=== PATIENT | male | born 1945 | race Caucasian/White ===

== ENCOUNTER 2016-09-26 09:19 | Inpatient (IN) | payer OTHER, MEDICAID ==
[~2016-09-26] VITALS: Ht 172.7 cm; Wt 106.7 kg
[~2016-09-26 09:19] MED LIST: ASPI-231 PO; ATOR20TA PO; IBU100LQ PO; KET10T PO; NITR0.4S29 SL; NITR400A5 SL; ZOLP10TA PO
[2016-09-26 10:23] LABS: Basophils # (auto) 0.1 uL; Basophils % (auto) 0.7 % (0.0-2.0); DEFINITIVE VIEW TRANSMISSION; Eosinophils # (auto) 0.7 uL; Eosinophils % (auto) 6.6 % (0.0-7.0); Hematocrit 44.5 % (41.0-53.0); Hemoglobin 14.8 g/dL (13.5-17.5); Lymphocytes # (auto) 1.8 uL; Lymphocytes % (auto) 15.8 % (10.0-50.0); Mean Corpuscular Hemoglobin 29.2 pg (28.0-32.0); Mean Corpuscular Hgb Conc. 33.2 g/dL (32.0-36.0); Mean Corpuscular Volume 87.9 fL (80.0-100.0); Mean Platelet Volume 7.7 fL (7.4-10.4); Monocytes # (auto) 0.8 uL; Monocytes % (auto) 6.8 % (0.0-12.0); Neutrophils # (auto) 7.9 uL; Neutrophils % (auto) 70.1 % (37.0-80.0); Platelet Count (auto) 327 10^3/uL (140-450); Red Cell Distribution Width 14.7 % (11.6-16.0); White Blood Cell 11.3 10^3/uL (4.4-10.8)
[2016-09-26 10:48] LABS: INR 1.02 (0.9-1.15); Partial Thromboplastin Time 25.9 sec (22.64-33.71)
[2016-09-26 10:53] LABS: Albumin 3.3 g/dL (3.4-5.0); Alkaline Phosphatase 116 U/L (45-117); Anion Gap 11 (5-15); Aspartate Aminotransferase 28 U/L (15-37); BUN/Creatinine Ratio 10.9; Bilirubin, Total 0.4 mg/dL (0.2-1.0); Blood Urea Nitrogen 11 mg/dL (7-18); Calcium 8.8 mg/dL (8.5-10.1); Carbon Dioxide 25 mmol/L (21-32); Chloride 107 mmol/L (98-107); GFR African American 93 mL/min; GFR Non-African American 77 mL/min; Glucose 135 mg/dL (74-106); Potassium 3.4 mmol/L (3.5-5.1); Sodium 143 mmol/L (136-145); Total Protein 7.5 g/dL (6.4-8.2)
[2016-09-26 10:59] LABS: Temperature: 24.3 C (20.0-25.0)
[2016-09-26] MEDS ORDERED: FUROSEMIDE 20 MG/2 ML VIAL IV ONE (13:15)
[2016-09-26] MEDS ORDERED: POTASSIUM CHL 20 Meq TABLET PO ONE (15:00)
[2016-09-26] MEDS ORDERED: IOHEXOL 350 MG/ML 100ML IJ ONE (16:09)
[2016-09-26] MEDS ORDERED: NITROGLYCERIN 0.4 MG SL TAB SL PRN (16:15)
[2016-09-26] MEDS ORDERED: MORPHINE SULF INJ 2 MG/ML SYRINGE 1ML IV PRN (16:15)
[2016-09-26 17:37] VITALS: BP 133/89
[2016-09-26] MEDS ORDERED: ALBUTEROL SULF 2.5 MG/0.5ML(0.5%) NEB SOLN NEB SCH (18:00)
[2016-09-26] MEDS ORDERED: guaiFENesin-DEXTROMETHORPHAN 5ML SYR PO SCH (18:00)
[2016-09-26 18:58] VITALS: BP 133/89
[2016-09-26] MEDS ORDERED: BUMETANIDE (0.25 MG/ML) INJ 10ML IV ONE (20:30)
[2016-09-26] MEDS ORDERED: IPRATROPIUM BROM 0.5 MG/2.5ML INH SOL NEB PRN (21:45)
[2016-09-26 21:56] VITALS: BP 150/81
[2016-09-26] MEDS: ZOLPIDEM TARTRATE 5 MG TAB PO PRN (22:14)
[2016-09-26] MEDS: CARVEDILOL 3.125 MG TAB PO SCH (22:14)
[2016-09-26 22:28] VITALS: BP 150/81
[2016-09-26] MEDS: guaiFENesin-DEXTROMETHORPHAN 5ML SYR PO PRN (23:36)
[2016-09-27] VITALS (7 sets, daily range): BP systolic 103–163; BP diastolic 67–103
[2016-09-27] MEDS ORDERED: methylPREDNISolone SOD SUCC 125 MG/2 ML VL ONE (01:26)
[2016-09-27] MEDS ORDERED: methylPREDNISolone SOD SUCC 125 MG/2 ML VL IV ONE (01:30)
[2016-09-27] MEDS ORDERED: IPRATROPIUM BROM 0.5 MG/2.5ML INH SOL NEB PRN (03:30)
[2016-09-27] MEDS ORDERED: methylPREDNISolone SOD SUCC 125 MG/2 ML VL IM ONE (03:30)
[2016-09-27] MEDS ORDERED: ALPRAZolam 0.5 MG TAB ONE (05:00)
[2016-09-27] MEDS ORDERED: ALBUTEROL SULF 2.5 MG/0.5ML(0.5%) NEB SOLN NEB PRN (05:00)
[2016-09-27] MEDS ORDERED: ALPRAZolam 0.5 MG TAB PO PRN (05:15)
[2016-09-27] MEDS: IPRATROPIUM BROM 0.5 MG/2.5ML INH SOL NEB SCH ×6 (05:58→22:00)
[2016-09-27] MEDS: ALBUTEROL SULF 2.5 MG/0.5ML(0.5%) NEB SOLN NEB SCH ×6 (05:59→22:00)
[2016-09-27] MEDS ORDERED: FUROSEMIDE 100 MG/10ML VIAL IV SCH (06:00)
[2016-09-27] MEDS: FUROSEMIDE 100 MG/10ML VIAL IV SCH ×2 (06:00→18:00)
[2016-09-27] MEDS ORDERED: traMADol HCL 50 MG TAB PO PRN (06:30)
[2016-09-27] MEDS ORDERED: FUROSEMIDE 20 MG/2 ML VIAL IV SCH (10:00)
[2016-09-27] MEDS: CARVEDILOL 3.125 MG TAB PO SCH ×2 (10:29→22:00)
[2016-09-27] MEDS: LEVOFLOXACIN 500MG 100 ML IV SCH (10:32)
[2016-09-27] MEDS: LISINOPRIL 5 MG TAB PO SCH (10:32)
[2016-09-27 13:59] LABS: Basophils # (auto) 0 uL; Basophils % (auto) 0.2 % (0.0-2.0); Eosinophils # (auto) 0 uL; Eosinophils % (auto) 0.3 % (0.0-7.0); Hematocrit 47.8 % (41.0-53.0); Hemoglobin 15.6 g/dL (13.5-17.5); Lymphocytes # (auto) 1.3 uL; Lymphocytes % (auto) 10.4 % (10.0-50.0); Mean Corpuscular Hemoglobin 29.1 pg (28.0-32.0); Mean Corpuscular Hgb Conc. 32.7 g/dL (32.0-36.0); Mean Corpuscular Volume 88.9 fL (80.0-100.0); Mean Platelet Volume 7.8 fL (7.4-10.4); Monocytes # (auto) 0.4 uL; Monocytes % (auto) 2.9 % (0.0-12.0); Neutrophils # (auto) 11.1 uL; Neutrophils % (auto) 86.2 % (37.0-80.0); Platelet Count (auto) 376 10^3/uL (140-450); Red Cell Distribution Width 14.6 % (11.6-16.0); White Blood Cell 12.8 10^3/uL (4.4-10.8)
[2016-09-27 14:17] LABS: Calcium 8.9 mg/dL (8.5-10.1); Magnesium 2.2 mg/dL (1.6-2.6); Potassium 3.8 mmol/L (3.5-5.1)
[2016-09-27] MEDS: methylPREDNISolone SOD SUCC 40 MG/ML VL IV SCH ×3 (14:37→22:00)
[2016-09-28] VITALS: BP 105/71
[2016-09-28] MEDS: IPRATROPIUM BROM 0.5 MG/2.5ML INH SOL NEB SCH ×6 (02:00→22:00)
[2016-09-28] MEDS: ALBUTEROL SULF 2.5 MG/0.5ML(0.5%) NEB SOLN NEB SCH ×6 (02:00→22:00)
[2016-09-28 03:57] VITALS: BP 113/75
[2016-09-28] MEDS: FUROSEMIDE 100 MG/10ML VIAL IV SCH ×2 (06:10→18:37)
[2016-09-28] MEDS: methylPREDNISolone SOD SUCC 40 MG/ML VL IV SCH ×3 (06:10→21:57)
[2016-09-28 06:25] LABS: Basophils # (auto) 0 uL; Basophils % (auto) 0.2 % (0.0-2.0); Eosinophils # (auto) 0 uL; Eosinophils % (auto) 0.1 % (0.0-7.0); Hematocrit 46.9 % (41.0-53.0); Hemoglobin 15.3 g/dL (13.5-17.5); Lymphocytes # (auto) 1.9 uL; Lymphocytes % (auto) 9.9 % (10.0-50.0); Mean Corpuscular Hemoglobin 28.9 pg (28.0-32.0); Mean Corpuscular Hgb Conc. 32.5 g/dL (32.0-36.0); Mean Corpuscular Volume 88.9 fL (80.0-100.0); Monocytes # (auto) 0.8 uL; Monocytes % (auto) 4.2 % (0.0-12.0); Neutrophils # (auto) 16.2 uL; Neutrophils % (auto) 85.6 % (37.0-80.0); Platelet Count (auto) 364 10^3/uL (140-450); Red Cell Distribution Width 14.7 % (11.6-16.0); White Blood Cell 18.9 10^3/uL (4.4-10.8)
[2016-09-28 06:47] LABS: BUN/Creatinine Ratio 25.6; Calcium 9.3 mg/dL (8.5-10.1); Magnesium 2.3 mg/dL (1.6-2.6); Potassium 3.7 mmol/L (3.5-5.1)
[2016-09-28 07:51] VITALS: BP 118/80
[2016-09-28] MEDS ORDERED: ADENOSINE 89 MG in GIVE UN-DILUTED 0 ML IV ONE (08:30)
[2016-09-28] MEDS: LEVOFLOXACIN 500MG 100 ML IV SCH (09:33)
[2016-09-28] MEDS: CARVEDILOL 3.125 MG TAB PO SCH ×2 (10:43→21:56)
[2016-09-28] MEDS: LISINOPRIL 5 MG TAB PO SCH (10:44)
[2016-09-28 12:00] VITALS: BP 113/57
[2016-09-28] MEDS: BUDESONIDE (INHALATION) 0.5 MG/2 ML NEB NEB SCH ×2 (13:53→19:01)
[2016-09-28] MEDS: HEPARIN SODIUM (PORCINE) 5000 UNITS/ML 1ML VIAL SC SCH ×2 (14:00→22:00)
[2016-09-28 16:00] VITALS: BP 103/65
[2016-09-28 19:54] VITALS: BP 124/71
[2016-09-28] MEDS: ZOLPIDEM TARTRATE 5 MG TAB PO PRN (21:56)
[2016-09-29] VITALS: BP 126/90
[2016-09-29 01:00] VITALS: BP 91/56
[2016-09-29] MEDS: ALBUTEROL SULF 2.5 MG/0.5ML(0.5%) NEB SOLN NEB SCH ×4 (01:58→14:06)
[2016-09-29] MEDS: IPRATROPIUM BROM 0.5 MG/2.5ML INH SOL NEB SCH ×4 (01:58→14:06)
[2016-09-29 05:00] VITALS: BP 108/64
[2016-09-29] MEDS: guaiFENesin-DEXTROMETHORPHAN 5ML SYR PO PRN (05:43)
[2016-09-29] MEDS: methylPREDNISolone SOD SUCC 40 MG/ML VL IV SCH ×2 (05:43→13:57)
[2016-09-29] MEDS: FUROSEMIDE 100 MG/10ML VIAL IV SCH (05:44)
[2016-09-29] MEDS: HEPARIN SODIUM (PORCINE) 5000 UNITS/ML 1ML VIAL SC SCH ×2 (05:51→14:00)
[2016-09-29 06:15] LABS: Basophils # (auto) 0 uL; Basophils % (auto) 0.2 % (0.0-2.0); Eosinophils # (auto) 0 uL; Eosinophils % (auto) 0.1 % (0.0-7.0); Hematocrit 46.1 % (41.0-53.0); Lymphocytes # (auto) 1.7 uL; Lymphocytes % (auto) 8.8 % (10.0-50.0); Mean Corpuscular Hemoglobin 29.1 pg (28.0-32.0); Mean Corpuscular Hgb Conc. 32.5 g/dL (32.0-36.0); Mean Corpuscular Volume 89.4 fL (80.0-100.0); Monocytes # (auto) 1.1 uL; Monocytes % (auto) 6.1 % (0.0-12.0); Neutrophils % (auto) 84.8 % (37.0-80.0); Platelet Count (auto) 369 10^3/uL (140-450); Red Cell Distribution Width 14.9 % (11.6-16.0); White Blood Cell 18.9 10^3/uL (4.4-10.8)
[2016-09-29 06:36] LABS: Potassium 4.2 mmol/L (3.5-5.1)
[2016-09-29 06:49] LABS: BUN/Creatinine Ratio 29.8
[2016-09-29 08:00] VITALS: BP 119/64
[2016-09-29] MEDS: LEVOFLOXACIN 500MG 100 ML IV SCH (09:38)
[2016-09-29] MEDS: CARVEDILOL 3.125 MG TAB PO SCH (09:38)
[2016-09-29] MEDS: LISINOPRIL 5 MG TAB PO SCH (09:38)
[2016-09-29] MEDS: BUDESONIDE (INHALATION) 0.5 MG/2 ML NEB NEB SCH (09:54)
[2016-09-29 11:35] VITALS: BP 119/64
[2016-09-29 12:00] VITALS: BP 103/68
== END 2016-09-29 14:45 | disposition home or self-care (01) | DRG 871 ==
LOC: ER 09:19 → TELE 09:20 → TELE-WESTW 17:46 → DOU IN ICU 09-27 15:38 → TELE-EAST 09-29 00:38
PROVIDERS: ADMIT Internal Medicine; ATTEND Internal Medicine
PROC: 5A09457 Assistance with Respiratory Ventilation, 24-96 Consecutive Hours, Continuous Positive Airway Pressure (ICD-10-PCS; principal; 2016-09-27)
DX: A41.9 Sepsis, unspecified organism (principal); I50.43 Acute on chronic combined systolic (congestive) and diastolic (congestive) heart failure; J18.9 Pneumonia, unspecified organism; J96.01 Acute respiratory failure with hypoxia; J44.1 Chronic obstructive pulmonary disease with (acute) exacerbation; J45.901 Unspecified asthma with (acute) exacerbation; J44.0 Chronic obstructive pulmonary disease with (acute) lower respiratory infection; J98.11 Atelectasis; I42.9 Cardiomyopathy, unspecified; I11.0 Hypertensive heart disease with heart failure; E78.5 Hyperlipidemia, unspecified; I25.10 Atherosclerotic heart disease of native coronary artery without angina pectoris; I25.2 Old myocardial infarction; K21.9 Gastro-esophageal reflux disease without esophagitis; E66.9 Obesity, unspecified; I70.0 Atherosclerosis of aorta; M15.9 Polyosteoarthritis, unspecified; G47.00 Insomnia, unspecified; N62 Hypertrophy of breast; E04.1 Nontoxic single thyroid nodule; I27.81 Cor pulmonale (chronic); I45.10 Unspecified right bundle-branch block; Z68.35 Body mass index [BMI] 35.0-35.9, adult; Z88.0 Allergy status to penicillin; Z82.49 Family history of ischemic heart disease and other diseases of the circulatory system; Z87.891 Personal history of nicotine dependence; Z91.14 Patient's other noncompliance with medication regimen; Z90.49 Acquired absence of other specified parts of digestive tract; Z79.899 Other long term (current) drug therapy; Z79.82 Long term (current) use of aspirin
CPT/HCPCS: 36415; 36600; 71010; 71275; 76536; 80048; 80053; 82805; 83735; 83880; 84439; 84443; 84480; 84484; 85025; 85379; 85610; 85730; 87081; 93005; 93306; 93970; 94640; 94660; 96374; J0153; J1956

== ENCOUNTER 2016-11-08 14:08 | Emergency (ER) | payer OTHER, MEDICAID ==
[~2016-11-08] VITALS: Ht 172.7 cm; Wt 108.4 kg
[2016-11-08] MEDS ORDERED: IPRATROPIUM BROM 0.5 MG/2.5ML INH SOL NEB ONE ×2 (14:30→16:15)
[2016-11-08] MEDS ORDERED: ALBUTEROL SULF 2.5 MG/0.5ML(0.5%) NEB SOLN NEB ONE ×2 (14:30→16:15)
[2016-11-08 14:51] LABS: Basophils # (auto) 0.1 uL; Basophils % (auto) 0.6 % (0.0-2.0); DEFINITIVE Y; Eosinophils # (auto) 0.7 uL; Eosinophils % (auto) 7.3 % (0.0-7.0); Hematocrit 43.9 % (41.0-53.0); Hemoglobin 14.9 g/dL (13.5-17.5); Lymphocytes % (auto) 19.6 % (10.0-50.0); Mean Corpuscular Hemoglobin 29.6 pg (28.0-32.0); Mean Corpuscular Hgb Conc. 33.9 g/dL (32.0-36.0); Mean Corpuscular Volume 87.2 fL (80.0-100.0); Mean Platelet Volume 7.5 fL (7.4-10.4); Monocytes # (auto) 0.8 uL; Monocytes % (auto) 8.1 % (0.0-12.0); Neutrophils # (auto) 6.5 uL; Neutrophils % (auto) 64.4 % (37.0-80.0); Platelet Count (auto) 359 10^3/uL (140-450); Red Cell Distribution Width 14.7 % (11.6-16.0); White Blood Cell 10.1 10^3/uL (4.4-10.8)
[2016-11-08 15:18] LABS: Albumin 3.5 g/dL (3.4-5.0); Alkaline Phosphatase 117 U/L (45-117); Anion Gap 6 (5-15); Aspartate Aminotransferase 21 U/L (15-37); BUN/Creatinine Ratio 8.7; Bilirubin, Total 0.5 mg/dL (0.2-1.0); Blood Urea Nitrogen 9 mg/dL (7-18); Calcium 9.1 mg/dL (8.5-10.1); Carbon Dioxide 30 mmol/L (21-32); Chloride 104 mmol/L (98-107); GFR African American 91 mL/min; GFR Non-African American 75 mL/min; Glucose 108 mg/dL (74-106); Magnesium 2.2 mg/dL (1.6-2.6); Sodium 140 mmol/L (136-145); Total Protein 7.5 g/dL (6.4-8.2)
[2016-11-08] MEDS ORDERED: LEVOFLOXACIN 500 MG TAB PO ONE (16:15)
[2016-11-08] MEDS ORDERED: predniSONE 20 MG TAB PO ONE (16:15)
[2016-11-08 16:40] VITALS: BP 132/92
== END 2016-11-08 17:05 | disposition home or self-care (01) ==
LOC: ER 14:08
DX: J44.1 Chronic obstructive pulmonary disease with (acute) exacerbation (principal); I25.2 Old myocardial infarction; I25.10 Atherosclerotic heart disease of native coronary artery without angina pectoris; I10 Essential (primary) hypertension; M54.9 Dorsalgia, unspecified; G89.29 Other chronic pain
CPT/HCPCS: 36415; 71020; 80053; 83735; 84484; 85025; 93005; 94640; 99285; J7512

== ENCOUNTER 2016-11-15 11:55 | Emergency (ER) | payer OTHER, MEDICAID ==
[~2016-11-15] VITALS: Ht 172.7 cm; Wt 107.0 kg
[2016-11-15 12:53] LABS: Basophils # (auto) 0.1 uL; Basophils % (auto) 0.6 % (0.0-2.0); CONDITION Y; Eosinophils # (auto) 0.4 uL; Eosinophils % (auto) 3.5 % (0.0-7.0); Hematocrit 42.4 % (41.0-53.0); Hemoglobin 14.3 g/dL (13.5-17.5); Lymphocytes # (auto) 3.1 uL; Lymphocytes % (auto) 25.2 % (10.0-50.0); Mean Corpuscular Hemoglobin 29.6 pg (28.0-32.0); Mean Corpuscular Hgb Conc. 33.8 g/dL (32.0-36.0); Mean Corpuscular Volume 87.6 fL (80.0-100.0); Mean Platelet Volume 7.8 fL (7.4-10.4); Monocytes # (auto) 0.7 uL; Neutrophils # (auto) 7.9 uL; Neutrophils % (auto) 64.7 % (37.0-80.0); Platelet Count (auto) 310 10^3/uL (140-450); Red Cell Distribution Width 14.4 % (11.6-16.0); White Blood Cell 12.3 10^3/uL (4.4-10.8)
[2016-11-15 13:18] LABS: Albumin 3.3 g/dL (3.4-5.0); Anion Gap 10 (5-15); Blood Urea Nitrogen 16 mg/dL (7-18); Calcium 8.5 mg/dL (8.5-10.1); Carbon Dioxide 27 mmol/L (21-32); Chloride 108 mmol/L (98-107); Glucose 122 mg/dL (74-106); Potassium 3.1 mmol/L (3.5-5.1); Sodium 145 mmol/L (136-145)
[2016-11-15 13:21] LABS: Aspartate Aminotransferase 16 U/L (15-37); BUN/Creatinine Ratio 15.8; GFR African American 93 mL/min; GFR Non-African American 77 mL/min
[2016-11-15 13:25] LABS: Alkaline Phosphatase 110 U/L (45-117); Bilirubin, Total 0.6 mg/dL (0.2-1.0); Total Protein 7.1 g/dL (6.4-8.2)
[2016-11-15] MEDS ORDERED: ALBUTEROL SULF 2.5 MG/0.5ML(0.5%) NEB SOLN NEB ONE (19:00)
[2016-11-15] MEDS ORDERED: IPRATROPIUM BROM 0.5 MG/2.5ML INH SOL NEB ONE (19:00)
[2016-11-15] MEDS ORDERED: methylPREDNISolone SOD SUCC 125 MG/2 ML VL IV ONE (19:00)
[2016-11-15 20:13] LABS: B-Type Natriuretic Peptide 18.65 pg/mL (0-100)
[2016-11-15 20:57] LABS: Temperature: 23.1 C (20.0-25.0)
[2016-11-16 01:13] VITALS: BP 151/80
== END 2016-11-16 01:23 | disposition home or self-care (01) ==
LOC: ER 11:55
DX: J44.1 Chronic obstructive pulmonary disease with (acute) exacerbation (principal); I25.10 Atherosclerotic heart disease of native coronary artery without angina pectoris; E78.5 Hyperlipidemia, unspecified; I10 Essential (primary) hypertension; I25.2 Old myocardial infarction
CPT/HCPCS: 36415; 71020; 80053; 83735; 83880; 84484; 85025; 93005; 94640; 96374; 99285; J2930

== ENCOUNTER 2016-11-22 14:06 | Emergency (ER) | payer OTHER, MEDICAID ==
[~2016-11-22] VITALS: Ht 172.7 cm; Wt 112.0 kg
[2016-11-22 14:14] VITALS: BP 132/80
[2016-11-22 14:44] LABS: Basophils # (auto) 0 uL; Basophils % (auto) 0.4 % (0.0-2.0); CONDITION Y; Eosinophils # (auto) 0.5 uL; Eosinophils % (auto) 5.1 % (0.0-7.0); Hematocrit 42.2 % (41.0-53.0); Hemoglobin 14.3 g/dL (13.5-17.5); Lymphocytes # (auto) 2.5 uL; Lymphocytes % (auto) 23.2 % (10.0-50.0); Mean Corpuscular Hemoglobin 29.6 pg (28.0-32.0); Mean Corpuscular Hgb Conc. 33.8 g/dL (32.0-36.0); Mean Corpuscular Volume 87.5 fL (80.0-100.0); Mean Platelet Volume 7.9 fL (7.4-10.4); Monocytes # (auto) 0.6 uL; Monocytes % (auto) 5.9 % (0.0-12.0); Neutrophils % (auto) 65.4 % (37.0-80.0); Platelet Count (auto) 291 10^3/uL (140-450); Red Cell Distribution Width 14.1 % (11.6-16.0); White Blood Cell 10.7 10^3/uL (4.4-10.8)
[2016-11-22 15:04] LABS: Albumin 3.2 g/dL (3.4-5.0); BUN/Creatinine Ratio 10.6; Bilirubin, Total 0.6 mg/dL (0.2-1.0); Potassium 3.2 mmol/L (3.5-5.1); Total Protein 6.7 g/dL (6.4-8.2)
[2016-11-22 20:29] LABS: B-Type Natriuretic Peptide 22.86 pg/mL (0-100)
[2016-11-22 20:39] LABS: Temperature: 22.4 C (20.0-25.0)
== END 2016-11-22 22:30 | disposition left against medical advice (07) ==
LOC: ER 14:06
DX: R07.9 Chest pain, unspecified (principal); R06.02 Shortness of breath; Z53.21 Procedure and treatment not carried out due to patient leaving prior to being seen by health care provider
CPT/HCPCS: 36415; 71020; 80053; 83880; 84484; 85025; 93005

== ENCOUNTER 2016-11-29 06:39 | Emergency (ER) | payer OTHER, MEDICAID ==
[~2016-11-29] VITALS: Ht 172.7 cm; Wt 112.0 kg
[2016-11-29 07:24] LABS: CONDITION Y; DEFINITIVE SEE PRINTOUT; Hematocrit 42.1 % (41.0-53.0); Hemoglobin 14.3 g/dL (13.5-17.5); Mean Corpuscular Hemoglobin 29.6 pg (28.0-32.0); Mean Corpuscular Hgb Conc. 33.9 g/dL (32.0-36.0); Mean Corpuscular Volume 87.3 fL (80.0-100.0); Mean Platelet Volume 7.5 fL (7.4-10.4); Platelet Count (auto) 284 10^3/uL (140-450); Red Cell Distribution Width 14.9 % (11.6-16.0); White Blood Cell 9.5 10^3/uL (4.4-10.8)
[2016-11-29 07:34] LABS: Metamyelocytes % 0; Myelocytes % 0; Promyelocytes % 0; Reactive Lymphocytes 0
[2016-11-29 07:42] LABS: INR 1.01 (0.9-1.15)
[2016-11-29 07:49] LABS: Albumin 3.4 g/dL (3.4-5.0); BUN/Creatinine Ratio 10.4; Bilirubin, Total 0.5 mg/dL (0.2-1.0); Calcium 8.7 mg/dL (8.5-10.1); Magnesium 2.1 mg/dL (1.6-2.6); Potassium 4.1 mmol/L (3.5-5.1); Total Protein 6.9 g/dL (6.4-8.2)
[2016-11-29 07:54] LABS: Platelet Estimate Adequate
[2016-11-29 07:55] LABS: Ovalocytes FEW
[2016-11-29] MEDS ORDERED: ASPirin 81 mg TAB PO ONE (10:15)
[2016-11-29] MEDS ORDERED: ONDANSETRON HCL 4 MG/2 ML VIAL IV ONE (10:15)
[2016-11-29] MEDS ORDERED: MORPHINE SULFATE 4 MG/ML SYRG IV ONE (10:15)
[2016-11-29] MEDS ORDERED: ALBUTEROL SULF 2.5 MG/0.5ML(0.5%) NEB SOLN NEB ONE (10:15)
[2016-11-29] MEDS ORDERED: IPRATROPIUM BROM 0.5 MG/2.5ML INH SOL NEB ONE (10:15)
[2016-11-29 12:46] VITALS: BP 119/78
== END 2016-11-29 14:06 | disposition home or self-care (01) ==
LOC: ER 06:39
DX: R07.89 Other chest pain (principal); J44.1 Chronic obstructive pulmonary disease with (acute) exacerbation; I10 Essential (primary) hypertension; E78.5 Hyperlipidemia, unspecified; I25.2 Old myocardial infarction; I25.10 Atherosclerotic heart disease of native coronary artery without angina pectoris; Z88.0 Allergy status to penicillin
CPT/HCPCS: 36415; 71020; 80053; 83735; 84484; 85007; 85027; 85610; 85730; 93005; 94640; 96374; 96375; 99291; J2270; J2405

== ENCOUNTER 2017-02-12 11:51 | Emergency (ER) | payer OTHER, MEDICAID ==
[~2017-02-12] VITALS: Ht 172.7 cm; Wt 108.9 kg
[2017-02-12 12:08] VITALS: BP 134/82
[2017-02-12 12:38] LABS: Urine Bilirubin Negative (Negative); Urine Blood TRACE /uL (Negative); Urine Color Colorless (Yellow); Urine Glucose Normal (Normal); Urine Ketone Negative (Negative); Urine Nitrite Negative (Negative); Urine RBC <1 /hpf (0 - 3); Urine Urobilinogen Normal (Negative); Urine pH 6.5 (5.0-8.0)
[2017-02-12 12:55] LABS: Basophils # (auto) 0 uL; Basophils % (auto) 0.4 % (0.0-2.0); CONDITION Y; Eosinophils # (auto) 0.4 uL; Eosinophils % (auto) 5.6 % (0.0-7.0); Hematocrit 41.2 % (41.0-53.0); Hemoglobin 14.1 g/dL (13.5-17.5); Lymphocytes # (auto) 2.2 uL; Lymphocytes % (auto) 28.1 % (10.0-50.0); Mean Corpuscular Hemoglobin 29.5 pg (28.0-32.0); Mean Corpuscular Hgb Conc. 34.3 g/dL (32.0-36.0); Mean Corpuscular Volume 86.1 fL (80.0-100.0); Mean Platelet Volume 7.4 fL (6.9-10.8); Monocytes # (auto) 0.7 uL; Monocytes % (auto) 8.7 % (0.0-12.0); Neutrophils # (auto) 4.5 uL; Neutrophils % (auto) 57.2 % (37.0-80.0); Platelet Count (auto) 339 10^3/uL (140-450); Red Cell Distribution Width 14.6 % (11.8-14.3); White Blood Cell 7.9 10^3/uL (4.4-10.8)
[2017-02-12 13:18] LABS: Albumin 3.5 g/dL (3.4-5.0); Anion Gap 9 (5-15); Aspartate Aminotransferase 16 U/L (15-37); BUN/Creatinine Ratio 14.3; Blood Urea Nitrogen 12 mg/dL (7-18); Calcium 8.5 mg/dL (8.5-10.1); Carbon Dioxide 24 mmol/L (21-32); Chloride 109 mmol/L (98-107); GFR African American 115 mL/min; GFR Non-African American 95 mL/min; Glucose 112 mg/dL (74-106); Magnesium 2.3 mg/dL (1.6-2.6); Potassium 3.4 mmol/L (3.5-5.1); Sodium 142 mmol/L (136-145)
[2017-02-12 13:23] LABS: Alkaline Phosphatase 100 U/L (45-117); Bilirubin, Total 0.4 mg/dL (0.2-1.0); Total Protein 7.1 g/dL (6.4-8.2)
== END 2017-02-12 14:25 | disposition left against medical advice (07) ==
LOC: ER 11:51
DX: R06.02 Shortness of breath (principal); R42 Dizziness and giddiness; Z53.21 Procedure and treatment not carried out due to patient leaving prior to being seen by health care provider
CPT/HCPCS: 36415; 71020; 80053; 81001; 83735; 84484; 85025; 93005

== ENCOUNTER 2017-04-18 00:15 | Emergency (ER) | payer OTHER, MEDICAID ==
[~2017-04-18] VITALS: Ht 172.7 cm; Wt 106.6 kg
[2017-04-18 00:58] LABS: Basophils # (auto) 0.2 uL; Basophils % (auto) 2.7 % (0.0-2.0); Eosinophils # (auto) 0.4 uL; Eosinophils % (auto) 4.4 % (0.0-7.0); Hematocrit 42.1 % (41.0-53.0); Lymphocytes # (auto) 2.4 uL; Lymphocytes % (auto) 27.7 % (10.0-50.0); Mean Corpuscular Hgb Conc. 33.3 g/dL (32.0-36.0); Mean Corpuscular Volume 87.1 fL (80.0-100.0); Mean Platelet Volume 7.4 fL (6.9-10.8); Monocytes # (auto) 0.8 uL; Monocytes % (auto) 9.2 % (0.0-12.0); Neutrophils # (auto) 4.9 uL; Nucleated Red Blood Cells % 0.1 %; Platelet Count (auto) 307 10^3/uL (140-450); Red Cell Distribution Width 14.4 % (11.8-14.3); White Blood Cell 8.8 10^3/uL (4.4-10.8)
[2017-04-18 01:17] LABS: Albumin 3.3 g/dL (3.4-5.0); BUN/Creatinine Ratio 14.9; Calcium 8.8 mg/dL (8.5-10.1); Magnesium 2.1 mg/dL (1.6-2.6)
[2017-04-18 01:22] LABS: Bilirubin, Total 0.4 mg/dL (0.2-1.0); Total Protein 7.5 g/dL (6.4-8.2)
[2017-04-18 01:46] LABS: Temperature: 22.1 C (20.0-25.0)
[2017-04-18] MEDS ORDERED: IOHEXOL 300 MG/ML 100ML BOTTLE IJ ONE (09:58)
[2017-04-18] MEDS ORDERED: ALPRAZolam 0.5 MG TAB PO ONE (11:30)
[2017-04-18] MEDS ORDERED: ALPRAZolam 0.25 MG TAB PO SCH (12:00)
[2017-04-18] MEDS ORDERED: MORPHINE SULF INJ 2 MG/ML SYRINGE 1ML IV PRN (12:00)
[2017-04-18 14:20] VITALS: BP 125/78
== END 2017-04-18 14:37 | disposition short-term general hospital (02) ==
LOC: ER 00:20
DX: J44.1 Chronic obstructive pulmonary disease with (acute) exacerbation (principal); C64.2 Malignant neoplasm of left kidney, except renal pelvis; I25.2 Old myocardial infarction; I11.0 Hypertensive heart disease with heart failure; I50.9 Heart failure, unspecified; I25.10 Atherosclerotic heart disease of native coronary artery without angina pectoris; E78.00 Pure hypercholesterolemia, unspecified; Z90.49 Acquired absence of other specified parts of digestive tract; Z99.81 Dependence on supplemental oxygen
CPT/HCPCS: 36415; 71010; 74176; 74177; 80053; 83690; 83735; 83880; 84484; 85025; 93005; 94761; 99285; Q9967

== ENCOUNTER 2017-05-02 15:40 | Observation (INO) | payer MEDICAID, OTHER ==
[~2017-05-02] VITALS: Ht 172.7 cm; Wt 106.6 kg
[2017-05-02 17:02] LABS: Basophils # (auto) 0.1 uL; Basophils % (auto) 0.7 % (0.0-2.0); Eosinophils # (auto) 0.5 uL; Eosinophils % (auto) 5.5 % (0.0-7.0); Hematocrit 43.5 % (41.0-53.0); Hemoglobin 14.7 g/dL (13.5-17.5); Lymphocytes % (auto) 22.4 % (10.0-50.0); Mean Corpuscular Hemoglobin 29.5 pg (28.0-32.0); Mean Corpuscular Hgb Conc. 33.7 g/dL (32.0-36.0); Mean Corpuscular Volume 87.5 fL (80.0-100.0); Mean Platelet Volume 7.6 fL (6.9-10.8); Monocytes # (auto) 0.9 uL; Monocytes % (auto) 9.9 % (0.0-12.0); Neutrophils # (auto) 5.5 uL; Neutrophils % (auto) 61.5 % (37.0-80.0); Platelet Count (auto) 304 10^3/uL (140-450); Red Cell Distribution Width 14.7 % (11.8-14.3)
[2017-05-02 17:03] LABS: Albumin 3.4 g/dL (3.4-5.0); Alkaline Phosphatase 123 U/L (45-117); Anion Gap 7 (5-15); Aspartate Aminotransferase 16 U/L (15-37); BUN/Creatinine Ratio 15.9; Bilirubin, Total 0.3 mg/dL (0.2-1.0); Blood Urea Nitrogen 14 mg/dL (7-18); Calcium 8.7 mg/dL (8.5-10.1); Carbon Dioxide 26 mmol/L (21-32); Chloride 106 mmol/L (98-107); GFR African American 109 mL/min; GFR Non-African American 90 mL/min; Glucose 130 mg/dL (74-106); Magnesium 2.2 mg/dL (1.6-2.6); Potassium 3.8 mmol/L (3.5-5.1); Sodium 139 mmol/L (136-145); Total Protein 7.8 g/dL (6.4-8.2)
[2017-05-02 18:27] LABS: INR 1.05 (0.9-1.15); Prothrombin Time 11.4 sec (9.37-12.3)
[2017-05-02 18:42] LABS: B-Type Natriuretic Peptide 12.1 pg/mL (0-100)
[2017-05-02] MEDS ORDERED: IOHEXOL 350 MG/ML 100ML IJ ONE (19:21)
[2017-05-02] MEDS ORDERED: cefTRIAXone 1GM/10ml IVPUSH 10 ML IV ONE (20:15)
[2017-05-02 23:01] VITALS: BP 99/62
== END 2017-05-03 00:25 | disposition home or self-care (01) | DRG 313 ==
LOC: EDBD 15:40 → ER 15:46 → OVERFLOW 17:43 → ER 05-03 00:25
PROVIDERS: ADMIT Family Medicine; ATTEND Family Medicine
DX: R07.2 Precordial pain (principal); I25.110 Atherosclerotic heart disease of native coronary artery with unstable angina pectoris; I11.0 Hypertensive heart disease with heart failure; I50.9 Heart failure, unspecified; J84.89 Other specified interstitial pulmonary diseases; E78.5 Hyperlipidemia, unspecified; R79.1 Abnormal coagulation profile; Z82.49 Family history of ischemic heart disease and other diseases of the circulatory system
CPT/HCPCS: 36415; 71010; 71275; 80053; 83735; 83880; 84443; 84484; 85025; 85379; 85610; 85730; 96374; 99285; G0378; Q9967

== ENCOUNTER 2017-08-15 14:33 | Emergency (ER) | payer OTHER ==
[~2017-08-15] VITALS: Ht 172.7 cm; Wt 110.7 kg
[~2017-08-15 14:33] MED LIST changes: -IBU100LQ PO; +IBUP100S11 PO
[2017-08-15 14:39] VITALS: BP 139/77
[2017-08-15 14:54] LABS: Urine WBC None Seen /hpf (0 - 3)
[2017-08-15 15:07] LABS: Basophils # (auto) 0.1 uL; Basophils % (auto) 0.7 % (0.0-2.0); Eosinophils # (auto) 0.5 uL; Eosinophils % (auto) 5.7 % (0.0-7.0); Hematocrit 42.9 % (41.0-53.0); Hemoglobin 14.3 g/dL (13.5-17.5); Lymphocytes # (auto) 2.1 uL; Lymphocytes % (auto) 22.5 % (10.0-50.0); Mean Corpuscular Hemoglobin 29.5 pg (28.0-32.0); Mean Corpuscular Hgb Conc. 33.4 g/dL (32.0-36.0); Mean Corpuscular Volume 88.4 fL (80.0-100.0); Monocytes # (auto) 0.7 uL; Monocytes % (auto) 7.3 % (0.0-12.0); Neutrophils # (auto) 5.8 uL; Neutrophils % (auto) 63.8 % (37.0-80.0); Nucleated Red Blood Cells % 0.5 %; Platelet Count (auto) 289 10^3/uL (140-450); Red Blood Cells 4.85 10^6/uL (4.5-5.90); Red Cell Distribution Width 14.9 % (11.8-14.3); White Blood Cell 9.1 10^3/uL (4.4-10.8)
[2017-08-15 15:21] LABS: Urine Bacteria FEW /hpf (None Seen); Urine Blood Negative /uL (Negative); Urine Specific Gravity 1.001 (1.001-1.035)
[2017-08-15 15:29] LABS: Alanine Aminotransferase 22 U/L (16-61); Albumin 3.5 g/dL (3.4-5.0); Alkaline Phosphatase 125 U/L (45-117); Anion Gap 10 (5-15); Aspartate Aminotransferase 17 U/L (15-37); BUN/Creatinine Ratio 12.6; Bilirubin, Total 0.5 mg/dL (0.2-1.0); Blood Urea Nitrogen 11 mg/dL (7-18); Calcium 8.3 mg/dL (8.5-10.1); Carbon Dioxide 23 mmol/L (21-32); Chloride 104 mmol/L (98-107); GFR African American 110 mL/min; GFR Non-African American 91 mL/min; Glucose 131 mg/dL (74-106); Magnesium 2.3 mg/dL (1.6-2.6); Potassium 3.8 mmol/L (3.5-5.1); Sodium 137 mmol/L (136-145); Total Protein 7.6 g/dL (6.4-8.2)
== END 2017-08-15 19:49 | disposition left against medical advice (07) ==
LOC: ER 14:33
DX: R07.9 Chest pain, unspecified (principal); Z53.21 Procedure and treatment not carried out due to patient leaving prior to being seen by health care provider
CPT/HCPCS: 36415; 71046; 80053; 81001; 83735; 84484; 85025; 93005

== ENCOUNTER 2017-11-17 09:20 | Emergency (ER) | payer OTHER ==
[~2017-11-17] VITALS: Ht 172.7 cm; Wt 108.9 kg
[2017-11-17 10:18] LABS: Basophils # (auto) 0.1 uL; Eosinophils # (auto) 0.5 uL; Eosinophils % (auto) 5.1 % (0.0-7.0); Hematocrit 45.5 % (41.0-53.0); Hemoglobin 15.5 g/dL (13.5-17.5); Lymphocytes # (auto) 2.4 uL; Lymphocytes % (auto) 24.9 % (10.0-50.0); Mean Corpuscular Hemoglobin 30.3 pg (28.0-32.0); Mean Corpuscular Hgb Conc. 34.2 g/dL (32.0-36.0); Mean Corpuscular Volume 88.7 fL (80.0-100.0); Monocytes # (auto) 0.8 uL; Monocytes % (auto) 8.4 % (0.0-12.0); Neutrophils # (auto) 5.8 uL; Neutrophils % (auto) 60.6 % (37.0-80.0); Nucleated Red Blood Cells % 0.1 %; Platelet Count (auto) 276 10^3/uL (140-450); Red Blood Cells 5.12 10^6/uL (4.5-5.90); Red Cell Distribution Width 14.8 % (11.8-14.3); White Blood Cell 9.7 10^3/uL (4.4-10.8)
[2017-11-17 10:32] LABS: Alanine Aminotransferase 37 U/L (16-61); Albumin 3.5 g/dL (3.4-5.0); Alkaline Phosphatase 117 U/L (45-117); Anion Gap 9 (5-15); Aspartate Aminotransferase 20 U/L (15-37); BUN/Creatinine Ratio 11.2; Bilirubin, Total 0.6 mg/dL (0.2-1.0); Blood Urea Nitrogen 10 mg/dL (7-18); Calcium 8.3 mg/dL (8.5-10.1); Carbon Dioxide 22 mmol/L (21-32); Chloride 107 mmol/L (98-107); GFR African American 107 mL/min; GFR Non-African American 89 mL/min; Glucose 151 mg/dL (74-106); Potassium 3.7 mmol/L (3.5-5.1); Sodium 138 mmol/L (136-145); Total Protein 7.4 g/dL (6.4-8.2)
[2017-11-17 10:34] LABS: INR 0.98 (0.9-1.15); Partial Thromboplastin Time 27.4 sec (23.78-33.04); Prothrombin Time 10.5 sec (9.27-12.13)
[2017-11-17] MEDS ORDERED: IPRATROPIUM BROM 0.5 MG/2.5ML INH SOL NEB ONE (11:45)
[2017-11-17] MEDS ORDERED: ALBUTEROL SULF 2.5 MG/0.5ML(0.5%) NEB SOLN NEB ONE (11:45)
[2017-11-17] MEDS ORDERED: IOHEXOL 350 MG/ML 100ML IJ ONE (12:43)
[2017-11-17 13:35] VITALS: BP 110/87
== END 2017-11-17 15:40 | disposition home or self-care (01) ==
LOC: ER 09:20
DX: J44.1 Chronic obstructive pulmonary disease with (acute) exacerbation (principal); E04.9 Nontoxic goiter, unspecified; I25.2 Old myocardial infarction; J84.10 Pulmonary fibrosis, unspecified; I11.0 Hypertensive heart disease with heart failure; I50.9 Heart failure, unspecified; E78.5 Hyperlipidemia, unspecified; Z90.89 Acquired absence of other organs; Z90.49 Acquired absence of other specified parts of digestive tract; Z85.528 Personal history of other malignant neoplasm of kidney
CPT/HCPCS: 36415; 71046; 71275; 80053; 84443; 84484; 85025; 85379; 85610; 85730; 93005; 94761; 99285; J7030; Q9967

== ENCOUNTER 2018-03-17 12:17 | Emergency (ER) | payer OTHER ==
[~2018-03-17] VITALS: Ht 172.7 cm; Wt 107.5 kg
[2018-03-17] MEDS ORDERED: ALBUTEROL SULF 2.5 MG/0.5ML(0.5%) NEB SOLN NEB ONE (13:15)
[2018-03-17] MEDS ORDERED: methylPREDNISolone SOD SUCC 125 MG/2 ML VL IM ONE (13:15)
[2018-03-17] MEDS ORDERED: IPRATROPIUM BROM 0.5 MG/2.5ML INH SOL NEB ONE (13:15)
[2018-03-17 14:01] LABS: Basophils # (auto) 0 uL; Basophils % (auto) 0.4 % (0.0-2.0); Hemoglobin 12.9 g/dL (13.5-17.5); Monocytes # (auto) 0.7 uL; Platelet Count (auto) 364 10^3/uL (140-450)
[2018-03-17 14:04] LABS: Eosinophils # (auto) 0.6 uL; Eosinophils % (auto) 5.9 % (0.0-7.0); Hematocrit 39.1 % (41.0-53.0); Lymphocytes # (auto) 1.7 uL; Mean Corpuscular Hemoglobin 26.9 pg (28.0-32.0); Mean Corpuscular Hgb Conc. 32.9 g/dL (32.0-36.0); Mean Corpuscular Volume 81.6 fL (80.0-100.0); Monocytes % (auto) 6.9 % (0.0-12.0); Neutrophils # (auto) 6.6 uL; Neutrophils % (auto) 68.8 % (37.0-80.0); Red Blood Cells 4.79 10^6/uL (4.5-5.90); White Blood Cell 9.6 10^3/uL (4.4-10.8)
[2018-03-17 14:18] LABS: Albumin 3.5 g/dL (3.4-5.0); Anion Gap 10 (5-15); Blood Urea Nitrogen 14 mg/dL (7-18); Calcium 8.1 mg/dL (8.5-10.1); Carbon Dioxide 19 mmol/L (21-32); Chloride 105 mmol/L (98-107); Glucose 165 mg/dL (74-106); Potassium 4.1 mmol/L (3.5-5.1); Sodium 134 mmol/L (136-145)
[2018-03-17 14:23] LABS: Alanine Aminotransferase 26 U/L (16-61); Alkaline Phosphatase 136 U/L (45-117); Aspartate Aminotransferase 14 U/L (15-37); BUN/Creatinine Ratio 11.6; Bilirubin, Total 0.3 mg/dL (0.2-1.0); GFR African American 75 mL/min; GFR Non-African American 62 mL/min; Total Protein 7.7 g/dL (6.4-8.2)
[2018-03-17 16:17] VITALS: BP 141/86
[2018-03-17 16:39] LABS: Urine Bacteria FEW /hpf (None Seen); Urine Blood TRACE /uL (Negative); Urine Mucus FEW (None Seen); Urine WBC 2 /hpf (0 - 3)
== END 2018-03-17 17:08 | disposition home or self-care (01) ==
LOC: ER 12:17
DX: J44.1 Chronic obstructive pulmonary disease with (acute) exacerbation (principal); I25.119 Atherosclerotic heart disease of native coronary artery with unspecified angina pectoris; E78.5 Hyperlipidemia, unspecified; I25.2 Old myocardial infarction; I11.0 Hypertensive heart disease with heart failure; I50.9 Heart failure, unspecified; Z90.49 Acquired absence of other specified parts of digestive tract; Z87.891 Personal history of nicotine dependence
CPT/HCPCS: 36415; 71045; 80053; 81001; 83880; 84484; 85025; 93005; 94640; 96372; 99285; J2930; J7611; J7644

== ENCOUNTER 2018-05-13 19:07 | Emergency (ER) | payer OTHER ==
[~2018-05-13] VITALS: Ht 172.7 cm; Wt 106.1 kg
[2018-05-13 19:20] VITALS: BP 158/91
[2018-05-13 20:01] LABS: Basophils # (auto) 0.1 uL; Basophils % (auto) 0.7 % (0.0-2.0); Eosinophils # (auto) 0.4 uL; Monocytes # (auto) 0.8 uL
[2018-05-13 20:02] LABS: Eosinophils % (auto) 4.6 % (0.0-7.0); Hematocrit 41.8 % (41.0-53.0); Hemoglobin 13.8 g/dL (13.5-17.5); Lymphocytes # (auto) 1.8 uL; Lymphocytes % (auto) 21.2 % (10.0-50.0); Mean Corpuscular Hemoglobin 26.3 pg (28.0-32.0); Mean Corpuscular Volume 79.6 fL (80.0-100.0); Monocytes % (auto) 9.7 % (0.0-12.0); Neutrophils # (auto) 5.5 uL; Neutrophils % (auto) 63.8 % (37.0-80.0); Platelet Count (auto) 305 10^3/uL (140-450); Red Blood Cells 5.25 10^6/uL (4.5-5.90); Red Cell Distribution Width 17.2 % (11.8-14.3); White Blood Cell 8.5 10^3/uL (4.4-10.8)
[2018-05-13 20:14] LABS: Albumin 3.5 g/dL (3.4-5.0); Calcium 8.2 mg/dL (8.5-10.1); Potassium 4.3 mmol/L (3.5-5.1)
[2018-05-13 20:18] LABS: BUN/Creatinine Ratio 11.2; Bilirubin, Total 0.3 mg/dL (0.2-1.0); Total Protein 7.6 g/dL (6.4-8.2)
== END 2018-05-13 22:23 | disposition left against medical advice (07) ==
LOC: ER 19:07
DX: R06.02 Shortness of breath (principal); Z53.21 Procedure and treatment not carried out due to patient leaving prior to being seen by health care provider
CPT/HCPCS: 36415; 71046; 80053; 85025; 93005

== ENCOUNTER 2018-06-01 20:00 | Emergency (ER) | payer OTHER ==
[~2018-06-01] VITALS: Ht 172.7 cm; Wt 106.6 kg
[2018-06-01 20:10] VITALS: BP 134/81
[2018-06-01] MEDS ORDERED: IPRATROPIUM BROM 0.5 MG/2.5ML INH SOL NEB ONE (20:45)
[2018-06-01] MEDS ORDERED: ALBUTEROL SULF 2.5 MG/0.5ML(0.5%) NEB SOLN NEB ONE (20:45)
[2018-06-01] MEDS ORDERED: cefTRIAXone 1GM/50ML D5W 50 ML IV ONE (20:45)
[2018-06-01] MEDS ORDERED: methylPREDNISolone SOD SUCC 125 MG/2 ML VL IV ONE (20:45)
[2018-06-01 21:16] LABS: Urine Bacteria NONE SEEN /hpf (None Seen); Urine Blood 1+ /uL (Negative); Urine Specific Gravity 1.017 (1.001-1.035); Urine WBC 1 /hpf (0 - 3)
[2018-06-01 21:21] LABS: Eosinophils # (auto) 0.6 uL; Eosinophils % (auto) 4.8 % (0.0-7.0)
[2018-06-01 21:23] LABS: Basophils # (auto) 0 uL; Basophils % (auto) 0.4 % (0.0-2.0); Hematocrit 41.6 % (41.0-53.0); Hemoglobin 13.9 g/dL (13.5-17.5); INR 0.99 (0.9-1.15); Lymphocytes # (auto) 1.4 uL; Lymphocytes % (auto) 11.4 % (10.0-50.0); Mean Corpuscular Hemoglobin 26.8 pg (28.0-32.0); Mean Corpuscular Hgb Conc. 33.3 g/dL (32.0-36.0); Mean Corpuscular Volume 80.3 fL (80.0-100.0); Monocytes # (auto) 1.2 uL; Monocytes % (auto) 9.9 % (0.0-12.0); Neutrophils # (auto) 8.8 uL; Neutrophils % (auto) 73.5 % (37.0-80.0); Nucleated Red Blood Cells % 0.1 %; Partial Thromboplastin Time 26.9 sec (23.78-33.04); Platelet Count (auto) 284 10^3/uL (140-450); Prothrombin Time 10.6 sec (9.27-12.13); Red Blood Cells 5.18 10^6/uL (4.5-5.90); Red Cell Distribution Width 17.6 % (11.8-14.3); White Blood Cell 11.9 10^3/uL (4.4-10.8)
[2018-06-01 21:27] LABS: Albumin 3.3 g/dL (3.4-5.0); Anion Gap 10 (5-15); Blood Urea Nitrogen 16 mg/dL (7-18); Calcium 7.8 mg/dL (8.5-10.1); Carbon Dioxide 20 mmol/L (21-32); Chloride 106 mmol/L (98-107); Glucose 188 mg/dL (74-106); Potassium 3.8 mmol/L (3.5-5.1); Sodium 136 mmol/L (136-145)
[2018-06-01 21:32] LABS: Alanine Aminotransferase 29 U/L (16-61); Alkaline Phosphatase 152 U/L (45-117); Aspartate Aminotransferase 19 U/L (15-37); BUN/Creatinine Ratio 11.3; Bilirubin, Total 0.3 mg/dL (0.2-1.0); GFR African American 63 mL/min; GFR Non-African American 52 mL/min; Total Protein 7.6 g/dL (6.4-8.2)
[2018-06-01] MEDS ORDERED: ACETAMINOPHEN 325 MG TAB PO ONE (22:45)
== END 2018-06-01 23:50 | disposition home or self-care (01) ==
LOC: ER 20:00
DX: J44.1 Chronic obstructive pulmonary disease with (acute) exacerbation (principal); I25.119 Atherosclerotic heart disease of native coronary artery with unspecified angina pectoris; I11.0 Hypertensive heart disease with heart failure; I50.9 Heart failure, unspecified; I25.2 Old myocardial infarction; Z87.891 Personal history of nicotine dependence
CPT/HCPCS: 36415; 71045; 80053; 81001; 83735; 83880; 84484; 85025; 85610; 85730; 93005; 94640; 96365; 96375; 99284; J0696; J2930; J7611; J7644

== ENCOUNTER 2018-06-23 11:44 | Emergency (ER) | payer OTHER ==
[~2018-06-23] VITALS: Ht 172.7 cm; Wt 106.6 kg
[2018-06-23 12:01] VITALS: BP 143/70
[2018-06-23 17:28] LABS: Basophils # (auto) 0 uL; Basophils % (auto) 0.5 % (0.0-2.0); Eosinophils # (auto) 0.4 uL; Eosinophils % (auto) 5.2 % (0.0-7.0); Hematocrit 43.1 % (41.0-53.0); Hemoglobin 14.4 g/dL (13.5-17.5); Lymphocytes # (auto) 2.1 uL; Lymphocytes % (auto) 26.8 % (10.0-50.0); Mean Corpuscular Hemoglobin 27.5 pg (28.0-32.0); Mean Corpuscular Hgb Conc. 33.4 g/dL (32.0-36.0); Mean Corpuscular Volume 82.4 fL (80.0-100.0); Monocytes # (auto) 0.7 uL; Monocytes % (auto) 8.3 % (0.0-12.0); Neutrophils # (auto) 4.7 uL; Neutrophils % (auto) 59.2 % (37.0-80.0); Platelet Count (auto) 298 10^3/uL (140-450); Red Blood Cells 5.23 10^6/uL (4.5-5.90); Red Cell Distribution Width 17.8 % (11.8-14.3); White Blood Cell 7.9 10^3/uL (4.4-10.8)
[2018-06-23] MEDS ORDERED: IPRATROPIUM BROM 0.5 MG/2.5ML INH SOL HHN ONE (17:30)
[2018-06-23] MEDS ORDERED: ALBUTEROL SULF 2.5 MG/0.5ML(0.5%) NEB SOLN HHN ONE (17:30)
[2018-06-23 17:41] LABS: INR 0.95 (0.9-1.15); Partial Thromboplastin Time 27.4 sec (23.78-33.04); Prothrombin Time 10.2 sec (9.27-12.13)
[2018-06-23 17:51] LABS: Albumin 3.4 g/dL (3.4-5.0); Anion Gap 6 (5-15); Blood Urea Nitrogen 17 mg/dL (7-18); Calcium 8.4 mg/dL (8.5-10.1); Carbon Dioxide 23 mmol/L (21-32); Chloride 107 mmol/L (98-107); Glucose 173 mg/dL (74-106); Potassium 3.8 mmol/L (3.5-5.1); Sodium 136 mmol/L (136-145)
[2018-06-23 17:58] LABS: Alanine Aminotransferase 26 U/L (16-61); Alkaline Phosphatase 139 U/L (45-117); Aspartate Aminotransferase 17 U/L (15-37); BUN/Creatinine Ratio 12.4; Bilirubin, Total 0.4 mg/dL (0.2-1.0); GFR African American 65 mL/min; GFR Non-African American 54 mL/min; Total Protein 7.4 g/dL (6.4-8.2)
== END 2018-06-23 19:10 | disposition home or self-care (01) ==
LOC: ER 11:44
DX: J20.9 Acute bronchitis, unspecified (principal); J44.0 Chronic obstructive pulmonary disease with (acute) lower respiratory infection; I25.10 Atherosclerotic heart disease of native coronary artery without angina pectoris; I10 Essential (primary) hypertension; Z90.49 Acquired absence of other specified parts of digestive tract; Z85.528 Personal history of other malignant neoplasm of kidney; Z87.891 Personal history of nicotine dependence
CPT/HCPCS: 36415; 71045; 80053; 83735; 83880; 84484; 85025; 85610; 85730; 93005; 94640; 94761

== ENCOUNTER 2018-08-13 16:54 | Emergency (ER) | payer OTHER ==
[~2018-08-13] VITALS: Ht 172.7 cm; Wt 105.7 kg
[2018-08-13 17:46] LABS: Basophils # (auto) 0.1 uL; Basophils % (auto) 0.8 % (0.0-2.0); Eosinophils # (auto) 0.9 uL; Eosinophils % (auto) 8.6 % (0.0-7.0); Hematocrit 43.1 % (41.0-53.0); Hemoglobin 14.2 g/dL (13.5-17.5); Lymphocytes % (auto) 20.2 % (10.0-50.0); Mean Corpuscular Hemoglobin 28.2 pg (28.0-32.0); Mean Corpuscular Volume 85.4 fL (80.0-100.0); Monocytes # (auto) 0.8 uL; Monocytes % (auto) 8.4 % (0.0-12.0); Neutrophils # (auto) 6.2 uL; Nucleated Red Blood Cells % 0.2 %; Platelet Count (auto) 286 10^3/uL (140-450); Red Blood Cells 5.05 10^6/uL (4.5-5.90); Red Cell Distribution Width 16.2 % (11.8-14.3)
[2018-08-13 17:57] LABS: Albumin 3.3 g/dL (3.4-5.0); Anion Gap 6 (5-15); Blood Urea Nitrogen 14 mg/dL (7-18); Calcium 8.3 mg/dL (8.5-10.1); Carbon Dioxide 25 mmol/L (21-32); Chloride 106 mmol/L (98-107); Glucose 121 mg/dL (74-106); Potassium 3.4 mmol/L (3.5-5.1); Sodium 137 mmol/L (136-145)
[2018-08-13 17:59] LABS: Alanine Aminotransferase 24 U/L (16-61); Aspartate Aminotransferase 17 U/L (15-37); BUN/Creatinine Ratio 11.9; GFR African American 77 mL/min; GFR Non-African American 64 mL/min
[2018-08-13 18:04] LABS: Alkaline Phosphatase 127 U/L (45-117); Bilirubin, Total 0.3 mg/dL (0.2-1.0); Total Protein 7.1 g/dL (6.4-8.2)
[2018-08-13] MEDS ORDERED: IPRATROPIUM BROM 0.5 MG/2.5ML INH SOL NEB ONE (18:30)
[2018-08-13] MEDS ORDERED: methylPREDNISolone SOD SUCC 125 MG/2 ML VL IM ONE (18:30)
[2018-08-13] MEDS ORDERED: ALBUTEROL SULF 2.5 MG/0.5ML(0.5%) NEB SOLN NEB ONE (18:30)
[2018-08-13 18:45] LABS: Urine Bacteria NONE SEEN /hpf (None Seen); Urine Blood Negative /uL (Negative); Urine Specific Gravity 1.008 (1.001-1.035); Urine WBC 1 /hpf (0 - 3)
[2018-08-13 22:32] VITALS: BP 130/72
== END 2018-08-13 22:35 | disposition home or self-care (01) ==
LOC: ER 17:02
DX: J40 Bronchitis, not specified as acute or chronic (principal); J44.9 Chronic obstructive pulmonary disease, unspecified; I10 Essential (primary) hypertension; I25.10 Atherosclerotic heart disease of native coronary artery without angina pectoris; Z90.49 Acquired absence of other specified parts of digestive tract; Z87.891 Personal history of nicotine dependence
CPT/HCPCS: 36415; 71046; 80053; 81001; 83880; 84484; 85025; 94640; 96372; 99284; J2930; J7611; J7644

== ENCOUNTER 2018-09-07 13:11 | Emergency (ER) | payer OTHER ==
[~2018-09-07] VITALS: Ht 172.7 cm; Wt 106.6 kg
[2018-09-07] MEDS ORDERED: ALBUTEROL SULF 2.5 MG/0.5ML(0.5%) NEB SOLN NEB ONE (13:30)
[2018-09-07] MEDS ORDERED: IPRATROPIUM BROM 0.5 MG/2.5ML INH SOL NEB ONE (13:30)
[2018-09-07] MEDS ORDERED: methylPREDNISolone SOD SUCC 125 MG/2 ML VL IV ONE (15:00)
[2018-09-07 15:08] LABS: Alanine Aminotransferase 22 U/L (16-61); Albumin 3.2 g/dL (3.4-5.0); Anion Gap 10 (5-15); Aspartate Aminotransferase 14 U/L (15-37); BUN/Creatinine Ratio 10.6; Blood Urea Nitrogen 12 mg/dL (7-18); Calcium 8.2 mg/dL (8.5-10.1); Carbon Dioxide 22 mmol/L (21-32); Chloride 107 mmol/L (98-107); GFR African American 81 mL/min; GFR Non-African American 67 mL/min; Glucose 119 mg/dL (74-106); Potassium 3.8 mmol/L (3.5-5.1); Sodium 139 mmol/L (136-145)
[2018-09-07 15:13] LABS: Alkaline Phosphatase 137 U/L (45-117); Basophils # (auto) 0 uL; Basophils % (auto) 0.6 % (0.0-2.0); Bilirubin, Total 0.3 mg/dL (0.2-1.0); Eosinophils # (auto) 0.8 uL; Eosinophils % (auto) 9.6 % (0.0-7.0); Hematocrit 42.5 % (41.0-53.0); Hemoglobin 14.1 g/dL (13.5-17.5); Lymphocytes # (auto) 1.9 uL; Lymphocytes % (auto) 23.3 % (10.0-50.0); Mean Corpuscular Hemoglobin 28.7 pg (28.0-32.0); Mean Corpuscular Hgb Conc. 33.2 g/dL (32.0-36.0); Mean Corpuscular Volume 86.5 fL (80.0-100.0); Monocytes # (auto) 0.7 uL; Monocytes % (auto) 8.5 % (0.0-12.0); Neutrophils # (auto) 4.8 uL; Nucleated Red Blood Cells % 0.1 %; Platelet Count (auto) 253 10^3/uL (140-450); Red Blood Cells 4.91 10^6/uL (4.5-5.90); Red Cell Distribution Width 15.7 % (11.8-14.3); Total Protein 6.9 g/dL (6.4-8.2); White Blood Cell 8.2 10^3/uL (4.4-10.8)
[2018-09-07] MEDS ORDERED: ACETAMINOPHEN 325 MG TAB PO ONE (17:00)
[2018-09-07 17:02] VITALS: BP 135/74
== END 2018-09-07 17:03 | disposition home or self-care (01) ==
LOC: ER 13:23
DX: J44.9 Chronic obstructive pulmonary disease, unspecified (principal); I25.10 Atherosclerotic heart disease of native coronary artery without angina pectoris; I10 Essential (primary) hypertension; Z90.49 Acquired absence of other specified parts of digestive tract
CPT/HCPCS: 36415; 71046; 80053; 83735; 83880; 84484; 85025; 93005; 94640; 96374; 99284; J2930; J7611; J7644

== ENCOUNTER 2018-10-19 14:46 | Emergency (ER) | payer OTHER ==
[~2018-10-19] VITALS: Ht 172.7 cm; Wt 105.7 kg
[2018-10-19 16:39] LABS: Basophils # (auto) 0.1 uL; Basophils % (auto) 0.9 % (0.0-2.0); Eosinophils # (auto) 0.9 uL; Eosinophils % (auto) 9.7 % (0.0-7.0); Hematocrit 42.8 % (41.0-53.0); Hemoglobin 14.2 g/dL (13.5-17.5); Lymphocytes # (auto) 1.3 uL; Lymphocytes % (auto) 13.2 % (10.0-50.0); Mean Corpuscular Hemoglobin 29.2 pg (28.0-32.0); Mean Corpuscular Hgb Conc. 33.2 g/dL (32.0-36.0); Mean Corpuscular Volume 87.8 fL (80.0-100.0); Monocytes # (auto) 0.8 uL; Monocytes % (auto) 8.1 % (0.0-12.0); Neutrophils # (auto) 6.5 uL; Neutrophils % (auto) 68.1 % (37.0-80.0); Nucleated Red Blood Cells % 0.1 %; Platelet Count (auto) 273 10^3/uL (140-450); Red Blood Cells 4.87 10^6/uL (4.5-5.90); Red Cell Distribution Width 15.8 % (11.8-14.3); White Blood Cell 9.5 10^3/uL (4.4-10.8)
[2018-10-19 17:21] LABS: Alanine Aminotransferase 23 U/L (16-61); Albumin 3.3 g/dL (3.4-5.0); Anion Gap 13 (5-15); Aspartate Aminotransferase 14 U/L (15-37); BUN/Creatinine Ratio 9.6; Blood Urea Nitrogen 13 mg/dL (7-18); Calcium 8.3 mg/dL (8.5-10.1); Carbon Dioxide 19 mmol/L (21-32); Chloride 108 mmol/L (98-107); GFR African American 66 mL/min; GFR Non-African American 54 mL/min; Glucose 208 mg/dL (74-106); Potassium 3.7 mmol/L (3.5-5.1); Sodium 140 mmol/L (136-145)
[2018-10-19 17:26] LABS: Alkaline Phosphatase 136 U/L (45-117); Bilirubin, Total 0.3 mg/dL (0.2-1.0); Total Protein 7.2 g/dL (6.4-8.2)
[2018-10-19] MEDS ORDERED: IPRATROPIUM BROM 0.5 MG/2.5ML INH SOL NEB ONE ×2 (17:45→19:45)
[2018-10-19] MEDS ORDERED: ALBUTEROL SULF 2.5 MG/0.5ML(0.5%) NEB SOLN NEB ONE ×2 (17:45→19:45)
[2018-10-19 18:29] LABS: Urine Bacteria NONE SEEN /hpf (None Seen); Urine Blood TRACE /uL (Negative); Urine Specific Gravity 1.007 (1.001-1.035); Urine WBC 1 /hpf (0 - 3)
[2018-10-19 19:20] LABS: INR 0.95 (0.9-1.15); Partial Thromboplastin Time 25.4 sec (23.64-32.05); Prothrombin Time 10.3 sec (9.06-12.60)
[2018-10-19] MEDS ORDERED: SOD CHL 0.45% 1,000 ML IV ONE (19:45)
[2018-10-19] MEDS ORDERED: methylPREDNISolone SOD SUCC 125 MG/2 ML VL IV ONE (19:45)
[2018-10-19] MEDS ORDERED: ALBUTEROL SULF 2.5 MG/0.5ML(0.5%) NEB SOLN ONE (19:51)
[2018-10-19] MEDS ORDERED: IPRATROPIUM BROM 0.5 MG/2.5ML INH SOL ONE (19:52)
[2018-10-19 21:07] VITALS: BP 125/76
== END 2018-10-19 21:11 | disposition home or self-care (01) ==
LOC: ER 14:46
DX: J44.1 Chronic obstructive pulmonary disease with (acute) exacerbation (principal); I25.10 Atherosclerotic heart disease of native coronary artery without angina pectoris; E78.5 Hyperlipidemia, unspecified; I10 Essential (primary) hypertension; Z90.49 Acquired absence of other specified parts of digestive tract
CPT/HCPCS: 36415; 71045; 80053; 81001; 83735; 83880; 84484; 85025; 85610; 85730; 93005; 94640; 94761; 96374; 99284; J2930; J7611; J7644

== ENCOUNTER 2018-11-26 12:31 | Emergency (ER) | payer OTHER ==
[~2018-11-26] VITALS: Ht 172.7 cm; Wt 110.7 kg
[~2018-11-26 12:31] MED LIST changes: +ALB5IS NEB; +AMOX-263 PO; +AZIT250T7 PO; +FAM20T PO; +GUAI-41 PO; -IBUP100S11 PO; +IPR002IS NEB; -KET10T PO; -NITR400A5 SL; +PRED1PAK7 PO
[2018-11-26 12:35] VITALS: BP 160/92
[2018-11-26] MEDS ORDERED: MORPHINE SULF INJ 2 MG/ML SYRINGE 1ML IV ONE (13:00)
[2018-11-26] MEDS ORDERED: ONDANSETRON HCL 4 MG/2 ML VIAL IV ONE (13:00)
[2018-11-26 13:30] LABS: Basophils # (auto) 0.1 uL; Basophils % (auto) 0.4 % (0.0-2.0); Eosinophils # (auto) 0 uL; Eosinophils % (auto) 0.1 % (0.0-7.0); Hematocrit 42.3 % (41.0-53.0); Hemoglobin 14.1 g/dL (13.5-17.5); Lymphocytes # (auto) 1.2 uL; Lymphocytes % (auto) 7.6 % (10.0-50.0); Mean Corpuscular Hemoglobin 29.6 pg (28.0-32.0); Mean Corpuscular Hgb Conc. 33.5 g/dL (32.0-36.0); Mean Corpuscular Volume 88.4 fL (80.0-100.0); Monocytes # (auto) 0.5 uL; Monocytes % (auto) 3.2 % (0.0-12.0); Neutrophils # (auto) 14.2 uL; Neutrophils % (auto) 88.7 % (37.0-80.0); Nucleated Red Blood Cells % 0.1 %; Platelet Count (auto) 199 10^3/uL (140-450); Red Blood Cells 4.78 10^6/uL (4.5-5.90); Red Cell Distribution Width 14.9 % (11.8-14.3)
[2018-11-26 13:46] LABS: Albumin 3.2 g/dL (3.4-5.0); Anion Gap 9 (5-15); Blood Urea Nitrogen 15 mg/dL (7-18); Calcium 8.4 mg/dL (8.5-10.1); Carbon Dioxide 23 mmol/L (21-32); Chloride 107 mmol/L (98-107); Glucose 237 mg/dL (74-106); Potassium 3.8 mmol/L (3.5-5.1); Sodium 139 mmol/L (136-145)
[2018-11-26 13:52] LABS: Alanine Aminotransferase 22 U/L (16-61); Alkaline Phosphatase 97 U/L (45-117); Aspartate Aminotransferase 10 U/L (15-37); BUN/Creatinine Ratio 9.9; Bilirubin, Total 0.6 mg/dL (0.2-1.0); GFR African American 58 mL/min; GFR Non-African American 48 mL/min; Total Protein 6.3 g/dL (6.4-8.2)
[2018-11-26] MEDS ORDERED: LEVOFLOXACIN 500MG 100 ML IV ONE (15:00)
[2018-11-26 16:18] LABS: Lactic Acid w/Reflex 3.4 mmol/L (0.4-2.0)
== END 2018-11-26 15:37 | disposition home or self-care (01) ==
LOC: ER 12:31 → EDBD 12:31 → ER 15:37
DX: J18.9 Pneumonia, unspecified organism (principal); D72.829 Elevated white blood cell count, unspecified; Z88.0 Allergy status to penicillin; Z79.899 Other long term (current) drug therapy
CPT/HCPCS: 36415; 71045; 80053; 83605; 83735; 83880; 84484; 85025; 87040; 87077; 87186; 93005; 94761; 96374; 96375; 99284; J1956; J2270; J2405

== ENCOUNTER 2019-03-05 15:38 | Emergency (ER) | payer OTHER ==
[~2019-03-05] VITALS: Ht 172.7 cm; Wt 104.3 kg
[2019-03-05 16:28] LABS: Basophils # (auto) 0.1 uL; Basophils % (auto) 0.7 % (0.0-2.0); Eosinophils # (auto) 0.7 uL; Eosinophils % (auto) 7.8 % (0.0-7.0); Hemoglobin 14.7 g/dL (13.5-17.5); Lymphocytes # (auto) 2.5 uL; Lymphocytes % (auto) 28.3 % (10.0-50.0); Mean Corpuscular Hemoglobin 30.7 pg (28.0-32.0); Mean Corpuscular Hgb Conc. 33.6 g/dL (32.0-36.0); Mean Corpuscular Volume 91.4 fL (80.0-100.0); Monocytes # (auto) 0.9 uL; Monocytes % (auto) 9.6 % (0.0-12.0); Neutrophils # (auto) 4.8 uL; Neutrophils % (auto) 53.6 % (37.0-80.0); Nucleated Red Blood Cells % 0.1 %; Platelet Count (auto) 259 10^3/uL (140-450); Red Blood Cells 4.81 10^6/uL (4.5-5.90); Red Cell Distribution Width 13.7 % (11.8-14.3)
[2019-03-05 16:42] LABS: Alanine Aminotransferase 25 U/L (16-61); Albumin 3.4 g/dL (3.4-5.0); Anion Gap 5 (5-15); Blood Urea Nitrogen 17 mg/dL (7-18); Calcium 8.6 mg/dL (8.5-10.1); Carbon Dioxide 27 mmol/L (21-32); Chloride 109 mmol/L (98-107); Glucose 151 mg/dL (74-106); Potassium 4.3 mmol/L (3.5-5.1); Sodium 141 mmol/L (136-145)
[2019-03-05 16:46] LABS: Alkaline Phosphatase 138 U/L (45-117); Aspartate Aminotransferase 13 U/L (15-37); BUN/Creatinine Ratio 13.1; Bilirubin, Total 0.3 mg/dL (0.2-1.0); GFR African American 69 mL/min; GFR Non-African American 57 mL/min; Total Protein 6.9 g/dL (6.4-8.2)
[2019-03-06 00:31] VITALS: BP 149/76
[2019-03-06] MEDS ORDERED: methylPREDNISolone SOD SUCC 125 MG/2 ML VL IM ONE (00:45)
[2019-03-06] MEDS ORDERED: ALBUTEROL SULF 2.5 MG/0.5ML(0.5%) NEB SOLN NEB ONE (00:45)
[2019-03-06] MEDS ORDERED: IPRATROPIUM BROM 0.5 MG/2.5ML INH SOL NEB ONE (00:45)
== END 2019-03-06 01:23 | disposition home or self-care (01) ==
LOC: ER 15:44
DX: J44.1 Chronic obstructive pulmonary disease with (acute) exacerbation (principal); Z76.0 Encounter for issue of repeat prescription; Z90.89 Acquired absence of other organs
CPT/HCPCS: 36415; 71046; 80053; 84484; 85025; 93005; 94640; 96372; 99284; J2930; J7611; J7644

== ENCOUNTER 2019-07-17 11:23 | Emergency (ER) | payer BC, OTHER ==
[~2019-07-17] VITALS: Ht 172.7 cm; Wt 108.9 kg
[~2019-07-17 11:23] MED LIST changes: -AZIT250T7 PO; +AZIT250T9 PO
[2019-07-17 11:32] VITALS: BP 109/72
[2019-07-17] MEDS ORDERED: methylPREDNISolone SOD SUCC 125 MG/2 ML VL IV ONE (11:45)
[2019-07-17] MEDS ORDERED: IPRATROPIUM BROM 0.5 MG/2.5ML INH SOL NEB ONE (11:45)
[2019-07-17] MEDS ORDERED: ALBUTEROL SULF 2.5 MG/0.5ML(0.5%) NEB SOLN NEB ONE (11:45)
[2019-07-17 13:39] LABS: Basophils # (auto) 0 uL; Basophils % (auto) 0.4 % (0.0-2.0); Eosinophils # (auto) 0.1 uL; Eosinophils % (auto) 0.5 % (0.0-7.0); Hematocrit 45.5 % (41.0-53.0); Hemoglobin 15.3 g/dL (13.5-17.5); Lymphocytes # (auto) 0.8 uL; Lymphocytes % (auto) 7.9 % (10.0-50.0); Mean Corpuscular Hemoglobin 30.2 pg (28.0-32.0); Mean Corpuscular Hgb Conc. 33.6 g/dL (32.0-36.0); Mean Corpuscular Volume 89.8 fL (80.0-100.0); Monocytes # (auto) 0.6 uL; Monocytes % (auto) 6.1 % (0.0-12.0); Neutrophils # (auto) 8.7 uL; Neutrophils % (auto) 85.1 % (37.0-80.0); Platelet Count (auto) 230 10^3/uL (140-450); Red Blood Cells 5.06 10^6/uL (4.5-5.90); Red Cell Distribution Width 14.7 % (11.8-14.3); White Blood Cell 10.2 10^3/uL (4.4-10.8)
[2019-07-17 13:48] LABS: Albumin 3.6 g/dL (3.4-5.0); Anion Gap 9 (5-15); Blood Urea Nitrogen 13 mg/dL (7-18); Calcium 8.6 mg/dL (8.5-10.1); Carbon Dioxide 22 mmol/L (21-32); Chloride 103 mmol/L (98-107); Glucose 276 mg/dL (74-106); Potassium 4.6 mmol/L (3.5-5.1); Sodium 134 mmol/L (136-145)
[2019-07-17 13:54] LABS: Alanine Aminotransferase 39 U/L (16-61); Alkaline Phosphatase 125 U/L (45-117); Aspartate Aminotransferase 23 U/L (15-37); BUN/Creatinine Ratio 9.7; Bilirubin, Total 0.7 mg/dL (0.2-1.0); GFR African American 67 mL/min; GFR Non-African American 55 mL/min; Total Protein 7.6 g/dL (6.4-8.2)
[2019-07-17 16:36] LABS: Urine Bacteria NONE SEEN /hpf (None Seen); Urine Blood 1+ /uL (Negative); Urine Mucus FEW (None Seen); Urine WBC 4 /hpf (0 - 3)
[2019-07-17] MEDS ORDERED: methylPREDNISolone SOD SUCC 125 MG/2 ML VL IM ONE (17:45)
[2019-07-17] MEDS ORDERED: BACITRACIN TOP OINT 1 UD PKG TOP ONE (19:19)
== END 2019-07-17 20:21 | disposition home or self-care (01) ==
LOC: ER 11:23
DX: R10.9 Unspecified abdominal pain (principal); J44.1 Chronic obstructive pulmonary disease with (acute) exacerbation; N20.0 Calculus of kidney; G89.29 Other chronic pain; M54.9 Dorsalgia, unspecified; E66.9 Obesity, unspecified; Z68.30 Body mass index [BMI] 30.0-30.9, adult; Z88.0 Allergy status to penicillin; Z79.899 Other long term (current) drug therapy
CPT/HCPCS: 36415; 74176; 80053; 81001; 84484; 85025; 93005; 94640; 99285; J7644

== ENCOUNTER 2019-07-27 04:45 | Inpatient (IN) | payer BC ==
[2019-07-27] VITALS (11 sets, daily range): BP systolic 88–135; BP diastolic 50–92
[~2019-07-27] VITALS: Ht 180.3 cm; Wt 109.8 kg
[2019-07-27] MEDS ORDERED: PHYTONADIONE (VIT K)10 MG/ML 1ML VIAL SUBCUT ONE ×2 (05:15→05:45)
[2019-07-27] MEDS ORDERED: PANTOPRAZOLE 40mg/50ML NS AE 50 ML IV ONE (05:15)
[2019-07-27] MEDS ORDERED: PANTOPRAZOLE 40 MG/10 ML VIAL INJ IV ONE (05:15)
[2019-07-27 05:27] LABS: Basophils # (auto) 0.1 uL; Hemoglobin 7.4 g/dL (13.5-17.5); Mean Corpuscular Hemoglobin 30.2 pg (28.0-32.0)
[2019-07-27 05:30] LABS: Basophils % (auto) 0.3 % (0.0-2.0); Eosinophils # (auto) 0.1 uL; Eosinophils % (auto) 0.2 % (0.0-7.0); Hematocrit 22.9 % (41.0-53.0); Lymphocytes # (auto) 3.3 uL; Lymphocytes % (auto) 9.3 % (10.0-50.0); Mean Corpuscular Hgb Conc. 32.2 g/dL (32.0-36.0); Monocytes # (auto) 1.9 uL; Monocytes % (auto) 5.4 % (0.0-12.0); Neutrophils # (auto) 29.6 uL; Neutrophils % (auto) 84.8 % (37.0-80.0); Platelet Count (auto) 377 10^3/uL (140-450); Red Blood Cells 2.44 10^6/uL (4.5-5.90); Red Cell Distribution Width 14.5 % (11.8-14.3)
[2019-07-27] MEDS ORDERED: SODIUM CHLORIDE 0.9% 1,000 ML IV ONE ×2 (05:30→17:30)
[2019-07-27 05:34] LABS: White Blood Cell 34.9 10^3/uL (4.4-10.8)
[2019-07-27 05:43] LABS: INR 1.2 (0.9-1.15)
[2019-07-27] MEDS: NOREPINEPHRINE 8 MG/250ML KIT 250 ML IV SCH (05:45)
[2019-07-27] MEDS ORDERED: cefTRIAXone 1GM/50ML D5W 50 ML IV ONE (05:45)
[2019-07-27] MEDS ORDERED: SODIUM CHLORIDE 0.9% 250 ML IV ONE (05:45)
[2019-07-27 05:48] LABS: Albumin 1.9 g/dL (3.4-5.0); Magnesium 2.4 mg/dL (1.6-2.6); Potassium 3.8 mmol/L (3.5-5.1)
[2019-07-27 05:56] LABS: Bilirubin, Total 0.2 mg/dL (0.2-1.0); Total Protein 5.9 g/dL (6.4-8.2)
[2019-07-27] MEDS ORDERED: InsuLIN REG 1unit/0.01ml Soln (100units/ml) IV ONE ×2 (06:00→15:15)
[2019-07-27] MEDS ORDERED: PANTOPRAZOLE 40mg/50ML NS AE 50 ML IV SCH (09:30)
[2019-07-27 09:33] LABS: Lactic Acid w/Reflex 4.3 mmol/L (0.4-2.0)
[2019-07-27] MEDS: PANTOPRAZOLE 40mg/50ML NS AE 50 ML IV SCH ×3 (09:49→22:32)
[2019-07-27 12:39] LABS: Urine Bacteria NONE SEEN /hpf (None Seen); Urine Blood Negative /uL (Negative); Urine Specific Gravity 1.025 (1.001-1.035); Urine WBC 2 /hpf (0 - 3)
[2019-07-27] MEDS ORDERED: metroNIDAZOLE 500MG/100ML 100 ML IV ONE (14:00)
[2019-07-27] MEDS ORDERED: HYDROmorphone HCL 2 MG/ML VL IV ONE (14:00)
[2019-07-27] MEDS ORDERED: METOCLOPRAMIDE HCL 5MG/ml INJ 2ml VIAL IV ONE (14:00)
[2019-07-27] MEDS ORDERED: SODIUM CHLORIDE 0.9% 1,000 ML IVB ONE (15:05)
[2019-07-27] MEDS ORDERED: InsuLIN R (HUMAN) 100 UNITS in SODIUM CHL 0.9% 99 ML IV SCH (17:26)
[2019-07-27] MEDS ORDERED: DEXTROSE (50%) 50ML SYRG IV PRN ×2 (17:30→19:00)
[2019-07-27] MEDS ORDERED: ACCU-CHEK COMFORT CURVE STRIP VI SCH (18:00)
[2019-07-27 18:15] LABS: Magnesium 2.1 mg/dL (1.6-2.6); Phosphorus 1.7 mg/dL (2.5-4.90)
[2019-07-27 18:52] LABS: BUN/Creatinine Ratio 28.5; Calcium 7.6 mg/dL (8.5-10.1); Potassium 3.7 mmol/L (3.5-5.1)
--- NOTE | 2019-07-27 20:50 | NUR ---
Telemetry admit from ER SHARITA MCKINNEY admitted to Telemetry unit after SBAR received. Patient oriented to Sabi cowan RN, unit, room, bed, and unit policies regarding patient care and visiting hours. Patient now on continuous telemetry monitoring, tele box # 32 and telemetry reading on arrival to unit is sinus tachy 100. Patient placed on bedside oxygen 2L, weighed by bedscale and encouraged to call if they need something. All questions and concerns addressed, patient verbalized understanding.
--- NOTE | 2019-07-27 21:30 | NUR ---
pt requesting something to eat, pain medicine, and something for sleep. paged Dr. Cristina. awaiting call back.
--- NOTE | 2019-07-27 21:37 | NUR ---
TALKED TO DR. FLORES. NEW ORDERS.
[2019-07-27] MEDS ORDERED: MORPHINE SULF INJ 2 MG/ML SYRINGE 1ML IV PRN (21:45)
[2019-07-27] MEDS: diphenhdrAMINE HCL 50 MG/1 ML VL IV PRN (22:32)
[2019-07-27] MEDS: metroNIDAZOLE 500MG/100ML 100 ML IV SCH (22:32)
[2019-07-27] MEDS ORDERED: SODIUM CHLORIDE 0.9% 1,000 ML IV SCH (23:26)
[2019-07-27] MEDS: InsuLIN REG 1unit/0.01ml Soln (100units/ml) SC SCH (23:29)
[2019-07-27] MEDS: ACCU-CHEK COMFORT CURVE STRIP VI SCH (23:30)
--- NOTE | 2019-07-27 23:30 | NUR ---
PT REFUSING BLOOD SUGAR CHECK. PT STATED "I AM NOT DIABETIC", "I JUST WANT TO SLEEP NOW" EDUCATED THE PT ON THE NEED FOR IT. PT VERBALIZED UNDERSTANDING.
[2019-07-28] VITALS (14 sets, daily range): BP systolic 92–124; BP diastolic 49–82
[2019-07-28] MEDS: PANTOPRAZOLE 40mg/50ML NS AE 50 ML IV SCH ×5 (01:20→21:05)
--- NOTE | 2019-07-28 01:39 | NUR ---
plasma unit started.
[2019-07-28] MEDS: NOREPINEPHRINE 8 MG/250ML KIT 250 ML IV SCH (01:44)
--- NOTE | 2019-07-28 03:00 | NUR ---
FIRDT PLASMA UNIT COMPLETED. NO REACTION NOTED. SECOND PLASMA UNIT STARTED.
--- NOTE | 2019-07-28 04:25 | NUR ---
PLASMA TRANSFUSION COMPLETED. NO REACTION NOTED.
[2019-07-28] MEDS: InsuLIN REG 1unit/0.01ml Soln (100units/ml) SC SCH ×3 (06:00→17:57)
[2019-07-28] MEDS: ACCU-CHEK COMFORT CURVE STRIP VI SCH ×3 (06:00→17:40)
[2019-07-28] MEDS: metroNIDAZOLE 500MG/100ML 100 ML IV SCH ×3 (06:54→21:05)
--- NOTE | 2019-07-28 07:25 | NUR ---
Opening Shift Note Assumed care of patient, awake and alert. No S/S of distress/SOB, no pain noted or reported at this time.Updated on POC and instructed to call for assistance as needed, patient verbalized understanding. Bed locked in lowest position, side rails up x2, call light within reach. Will continue to monitor for changes Q1hr and PRN.
[2019-07-28 09:09] LABS: Red Cell Distribution Width 14.7 % (11.8-14.3)
[2019-07-28 09:10] LABS: Hematocrit 20.5 % (41.0-53.0); Mean Corpuscular Hemoglobin 30.3 pg (28.0-32.0); Mean Corpuscular Hgb Conc. 34.1 g/dL (32.0-36.0); Mean Corpuscular Volume 88.8 fL (80.0-100.0); Platelet Count (auto) 256 10^3/uL (140-450); White Blood Cell 16.1 10^3/uL (4.4-10.8)
[2019-07-28 09:22] LABS: Calcium 7.7 mg/dL (8.5-10.1); Potassium 3.7 mmol/L (3.5-5.1)
[2019-07-28 09:24] LABS: Basophils % (manual) 0 (0.0-2.0); Blast Cells 0; Eosinophils % (manual) 0 (0-7); Metamyelocytes % 0; Myelocytes % 0; Promyelocytes % 0; Reactive Lymphocytes 0
[2019-07-28 09:29] LABS: Band Neutrophils % (manual) 2; Lymphocytes % (manual) 15 (10.0-50.0); Monocytes % (manual) 2 (0-12)
[2019-07-28] MEDS ORDERED: GOLYTELY 4L KIT PO ONE (09:30)
[2019-07-28] MEDS ORDERED: POTASSIUM PHOSPHATE 22 MEQ in SODIUM CHL 0.9% 100 ML IV ONE (09:45)
[2019-07-28] MEDS ORDERED: cefTRIAXone 1GM/50ML D5W 50 ML IV SCH (10:00)
[2019-07-28] MEDS ORDERED: levoFLOXacin 750MG 150 ML IV SCH (10:00)
[2019-07-28 10:56] LABS: BUN/Creatinine Ratio 23.3
[2019-07-28 14:05] LABS: Basophils # (auto) 0 10 ^3/uL (0-0.2); Basophils % (auto) 0.2 % (0.0-2.0); Eosinophils # (auto) 0.1 10 ^3/uL (0-0.8); Monocytes % (auto) 6.4 % (0.0-12.0); Red Cell Distribution Width 14.8 % (11.8-14.3)
[2019-07-28 14:07] LABS: Eosinophils % (auto) 0.6 % (0.0-7.0); Hematocrit 20.4 % (41.0-53.0); Lymphocytes # (auto) 1.7 10 ^3/uL (0.4-5.4); Lymphocytes % (auto) 10.6 % (10.0-50.0); Mean Corpuscular Hemoglobin 30.1 pg (28.0-32.0); Mean Corpuscular Hgb Conc. 33.5 g/dL (32.0-36.0); Mean Corpuscular Volume 89.8 fL (80.0-100.0); Neutrophils # (auto) 13.2 10 ^3/uL (1.6-8.6); Neutrophils % (auto) 82.2 % (37.0-80.0); Nucleated Red Blood Cells % 0.3 %; Platelet Count (auto) 261 10^3/uL (140-450); Red Blood Cells 2.27 10^6/uL (4.5-5.90); White Blood Cell 16.1 10^3/uL (4.4-10.8)
[2019-07-28 14:16] LABS: Hemoglobin 6.8 g/dL (13.5-17.5)
--- NOTE | 2019-07-28 19:24 | NUR ---
SPOKE WITH DR VERAS INFORMED OF POSITIVE BLOOD CULTURE, NEW ORDERS RECEIVED. WILL INPUT AND FOLLOW THROUGH.
--- NOTE | 2019-07-28 19:26 | NUR ---
UA SENT TO LAB.
[2019-07-28] MEDS ORDERED: VANCOMYCIN PER PHARMACY 0 MG IV SCH (19:30)
[2019-07-28 20:18] LABS: Creatinine, Urine 114 mg/dL (30.0-125.0); Sodium Urine 95 mmol/L (40-220)
[2019-07-28] MEDS: TEMAZEPAM 15 MG CAP PO PRN (21:05)
[2019-07-28] MEDS ORDERED: VANCOMYCIN 1GM/250ML 250 ML IV ONE (21:15)
--- NOTE | 2019-07-28 22:15 | NUR ---
BLOOD TRANSFUSION STARTED
[2019-07-29] VITALS (10 sets, daily range): BP systolic 110–139; BP diastolic 57–71
[2019-07-29] MEDS: diphenhdrAMINE HCL 50 MG/1 ML VL IV PRN (00:40)
--- NOTE | 2019-07-29 01:21 | NUR ---
3RD UNIT PRBC COMPLETED PATIENT TOLERATED WELL WITH NO ADVERSE REACTIONS NOTED. WILL CONTINUE TO MONITOR PATIENT.
[2019-07-29] MEDS: PANTOPRAZOLE 40mg/50ML NS AE 50 ML IV SCH ×3 (02:20→12:46)
[2019-07-29] MEDS: metroNIDAZOLE 500MG/100ML 100 ML IV SCH ×3 (05:05→21:02)
[2019-07-29] MEDS: InsuLIN REG 1unit/0.01ml Soln (100units/ml) SC SCH ×4 (05:18→18:00)
[2019-07-29] MEDS: ACCU-CHEK COMFORT CURVE STRIP VI SCH ×4 (05:19→18:11)
[2019-07-29] MEDS: NOREPINEPHRINE 8 MG/250ML KIT 250 ML IV SCH (05:19)
[2019-07-29 08:20] LABS: Hematocrit 24.2 % (41.0-53.0); Platelet Count (auto) 277 10^3/uL (140-450); White Blood Cell 14.3 10^3/uL (4.4-10.8)
[2019-07-29 08:22] LABS: Hemoglobin 7.9 g/dL (13.5-17.5); Mean Corpuscular Hemoglobin 29.6 pg (28.0-32.0); Mean Corpuscular Hgb Conc. 32.8 g/dL (32.0-36.0); Mean Corpuscular Volume 90.2 fL (80.0-100.0); Red Blood Cells 2.68 10^6/uL (4.5-5.90); Red Cell Distribution Width 14.8 % (11.8-14.3)
[2019-07-29 08:27] LABS: Band Neutrophils % (manual) 0; Basophils % (manual) 0 (0.0-2.0); Blast Cells 0; Eosinophils % (manual) 0 (0-7); Metamyelocytes % 0; Myelocytes % 0; Promyelocytes % 0; Reactive Lymphocytes 0
[2019-07-29 08:37] LABS: BUN/Creatinine Ratio 15.5; Calcium 7.7 mg/dL (8.5-10.1); Magnesium 2.3 mg/dL (1.6-2.6); Potassium 3.3 mmol/L (3.5-5.1)
[2019-07-29 08:42] LABS: Lymphocytes % (manual) 16 (10.0-50.0); Monocytes % (manual) 6 (0-12)
[2019-07-29] MEDS: VANCOMYCIN 1GM/250ML 250 ML IV SCH ×2 (10:12→21:57)
[2019-07-29] MEDS ORDERED: POTASSIUM CHL 20 Meq TABLET PO ONE (11:00)
[2019-07-29] MEDS ORDERED: POTASSIUM PHOSPHATE 44 MEQ in D5W 5% 250 ML IV ONE (11:00)
[2019-07-29] MEDS: levoFLOXacin 750MG 150 ML IV SCH (11:45)
--- NOTE | 2019-07-29 15:40 | NUR ---
Patient returned from OR following procedure. No distress noted upon arrival. Patient connected to 2L O2 via NC. Addendum: 07/29/19 at 1813 by Yessica Mitchell RN Correct time [id number]
[2019-07-29] MEDS ORDERED: NALOXONE HCL 0.4 MG/ML VIAL ONE (15:44)
[2019-07-29] MEDS ORDERED: SODIUM CHLORIDE LOCK 10 ML ONE (15:45)
[2019-07-29] MEDS ORDERED: LIDOCAINE VISCOUS 2% 15ML UD ONE (15:45)
[2019-07-29] MEDS ORDERED: diphenhdrAMINE HCL 50 MG/1 ML VL ONE (15:46)
--- NOTE | 2019-07-29 15:55 | NUR ---
Taken to OR for procedure No distress upon departure.
[2019-07-29] MEDS: MIDAZOLAM HCL 5 MG/ML-1ML VIAL ONE ×2 (16:35→16:38)
[2019-07-29] MEDS: fentaNYL CITRATE 100 MCG/2 ML VL ONE ×2 (16:35→16:38)
--- NOTE | 2019-07-29 19:00 | NUR ---
Patient resting in bed eating dinner. No s/s of distress, SOB, or pain. Will endorse care to special effects artist RN.
--- NOTE | 2019-07-29 19:20 | NUR ---
OPENING SHIFT NOTE Assumed care of patient who is A&O x4. Family is at the bedside. On 2L NC with no s/s of distress. Reports SOB with activity. Denies pain at this time. Patient is ambulatory with standby assistance. PIV in right hand is intact and patent. Flushed with 10ml NS. POC discussed with patient who verbalizes understanding. Bed is in low locked position with side rails up x2. Call light is within reach and patient encouraged to call for assistance when needed. Will continue to monitor for changes PRN.
[2019-07-29] MEDS: TEMAZEPAM 15 MG CAP PO PRN (20:16)
[2019-07-29] MEDS: PANTOPRAZOLE 40 MG TAB PO SCH (21:58)
[2019-07-29] MEDS ORDERED: PANTOPRAZOLE 40 MG TAB PO SCH (22:00)
--- NOTE | 2019-07-29 23:03 | NUR ---
IV insertion IV access obtained, via clean sterile technique by inserting 22 gauge catheter at left wrist after 2 attempts. IV secured properly. No trauma to site. Patient tolerated well. IV removal IV in right hand leaking. Surrounding tissue is pink. DC'd with clean sterile technique, catheter fully intact. Pressure dressing applied to site. Patient tolerated well.
[2019-07-30] MEDS: metroNIDAZOLE 500MG/100ML 100 ML IV SCH ×2 (04:45→13:39)
[2019-07-30 05:00] VITALS: BP 136/63
[2019-07-30 06:06] LABS: Red Cell Distribution Width 15.1 % (11.8-14.3)
[2019-07-30 06:10] LABS: Hematocrit 23.7 % (41.0-53.0); Mean Corpuscular Hemoglobin 30.6 pg (28.0-32.0); Mean Corpuscular Hgb Conc. 33.7 g/dL (32.0-36.0); Mean Corpuscular Volume 90.9 fL (80.0-100.0); Platelet Count (auto) 289 10^3/uL (140-450); Red Blood Cells 2.61 10^6/uL (4.5-5.90); White Blood Cell 13.4 10^3/uL (4.4-10.8)
[2019-07-30 06:17] LABS: BUN/Creatinine Ratio 8.4; Calcium 7.7 mg/dL (8.5-10.1); Magnesium 2.2 mg/dL (1.6-2.6); Potassium 3.7 mmol/L (3.5-5.1)
[2019-07-30] MEDS: ACCU-CHEK COMFORT CURVE STRIP VI SCH ×3 (06:20→12:16)
[2019-07-30] MEDS: InsuLIN REG 1unit/0.01ml Soln (100units/ml) SC SCH ×3 (06:21→12:24)
[2019-07-30 07:00] LABS: Basophils % (manual) 0 (0.0-2.0); Blast Cells 0; Myelocytes % 0; Promyelocytes % 0; Reactive Lymphocytes 0
[2019-07-30 08:00] LABS: Band Neutrophils % (manual) 3; Eosinophils % (manual) 1 (0-7); Lymphocytes % (manual) 14 (10.0-50.0); Metamyelocytes % 1; Monocytes % (manual) 3 (0-12)
[2019-07-30 09:00] VITALS: BP 116/72
[2019-07-30] MEDS: PANTOPRAZOLE 40 MG TAB PO SCH (10:04)
[2019-07-30] MEDS: VANCOMYCIN 1GM/250ML 250 ML IV SCH (10:14)
[2019-07-30] MEDS: levoFLOXacin 750MG 150 ML IV SCH (11:17)
[2019-07-30] MEDS ORDERED: METR500T PO (12:06)
[2019-07-30] MEDS ORDERED: ASCO500C49 PO (12:06)
[2019-07-30] MEDS ORDERED: FERR-20 PO (12:06)
[2019-07-30] MEDS ORDERED: LEVO500T21 PO (12:06)
[2019-07-30] MEDS ORDERED: PANT40TA2 PO (12:06)
[2019-07-30] MEDS ORDERED: MISC4CAP PO (12:06)
--- NOTE | 2019-07-30 12:38 | NUR ---
PT REPORTS THAT HE IS DOING FINE AND DOES NOT NEED P.T.
[2019-07-30 13:00] VITALS: BP 143/79
--- NOTE | 2019-07-30 13:45 | NUR ---
CALLED DR VERAS RE: PT'S STATUS PT IS COMPLAINING OF SOB WHEN HE WALKED TO THE BATHROOM TO HAVE A BM. PER MD AMBULATE PT ON 3L O2 AND CHECK SPO2 LEVEL, THEN CALL HIM. PT IS AWARE OF THE PLAN. PT WOULD LIKE TO REST FOR NOW AND WILL CALL WHEN HE'S READY.
--- NOTE | 2019-07-30 14:35 | NUR ---
SPOKE TO DR LEROY ON THE PHONE RE: PT'S UPDATED STATUS. PER DR LEROY, PT IS CLEARED TO GO HOME IN GI STANDPOINT.
--- NOTE | 2019-07-30 14:38 | NUR ---
PAGED PHYSICAL THERAPIST TO AMBULATE PT WITH O2 PER MD ORDER. SPOKE TO FAWAD.
--- NOTE | 2019-07-30 15:44 | NUR ---
CALLED DR VERAS TO INFORM HIM OF PT'S OXYGEN LEVEL POST AMBULATION ON 3L OF OXYGEN. PT SPO2 AT 92-95%. PT STATED HE WOULD RATHER HAVE HOME HEALTH SERVICE THAN GO TO A SNF. PER MD, HE WILL ARRANGE FOR HOME HEALTH SERVICE.
--- NOTE | 2019-07-30 16:08 | NUR ---
assessment re: ss consult Patient is a 74 year old male who is alert and oriented. Patients cognitive abilities are intact. Prior to admission patient lived home with family and functioned independently. Patient informed me he is able to care for his own ADLs. Per patient he will return home to his prior living arrangements post discharge and family will transport him home. Patient informed me he has 02, fww, cane, and a wheelchair for home use. Patient informed me he uses [facility] for PCP. [facility] home health care case manager [place] has set up home health with [facility] to start on 08/01/2019. I informed patient he has a right to speak to a psychosocial rehabilitation counselor regarding all care. I informed patient he has a right to participate in any and all discharge planning. Patient does not have a POA and advanced directive. I have offered patient information on POA and advanced directives. I informed the patient the advantages and benefits of having an Advanced Directive. Patient verbalized understanding and agreed to discharge plan. Addendum: 07/30/19 at 1611 by Kelsea POST Amended: Links added.
--- NOTE | 2019-07-30 16:55 | NUR ---
CALLED PT'S NEXT OF KIN, STEVE, SON. HE'S AWARE THAT PT IS BEING DISCHARGED AND WILL BE HERE SOON TO AMBULANCE ASSISTANT PT. HE'S ALSO MADE AWARE THAT THE MD HAD SET UP HOME HEALTH SERVICE FOR DISCHARGE.
[2019-07-30 17:00] VITALS: BP 108/62
--- NOTE | 2019-07-30 17:30 | NUR ---
Discharge instructions given as ordered. Encourage to follow up with PMD as instructed. All questions and concerns addressed. Patient verbalized understanding. Medication reconciliation form completed and copy given to patient. IV removed with catheter intact, pressure dressing applied, Telemetry unit returned to ICU. Patient taken to vehicle via wheelchair with all personal belongings, accompanied by staff and family member. No distress noted at time of departure.
== END 2019-07-30 17:30 | disposition home health service (06) | DRG 871 ==
LOC: EDBD 04:45 → ER 04:45 → OVERFLOW 04:46 → TELE-CENTR 20:34
PROVIDERS: ADMIT Internal Medicine; ATTEND Internal Medicine
PROC: 30233K1 Transfusion of Nonautologous Frozen Plasma into Peripheral Vein, Percutaneous Approach (ICD-10-PCS; principal; 2019-07-27)
PROC: 30233N1 Transfusion of Nonautologous Red Blood Cells into Peripheral Vein, Percutaneous Approach (ICD-10-PCS; 2019-07-27)
PROC: 0DB68ZX Excision of Stomach, Via Natural or Artificial Opening Endoscopic, Diagnostic (ICD-10-PCS; 2019-07-29)
DX: A41.51 Sepsis due to Escherichia coli [E. coli] (principal); K57.33 Diverticulitis of large intestine without perforation or abscess with bleeding; E11.10 Type 2 diabetes mellitus with ketoacidosis without coma; E43 Unspecified severe protein-calorie malnutrition; N17.0 Acute kidney failure with tubular necrosis; K57.31 Diverticulosis of large intestine without perforation or abscess with bleeding; K27.4 Chronic or unspecified peptic ulcer, site unspecified, with hemorrhage; C64.9 Malignant neoplasm of unspecified kidney, except renal pelvis; D62 Acute posthemorrhagic anemia; M19.90 Unspecified osteoarthritis, unspecified site; K52.9 Noninfective gastroenteritis and colitis, unspecified; D63.8 Anemia in other chronic diseases classified elsewhere; J44.9 Chronic obstructive pulmonary disease, unspecified; I25.10 Atherosclerotic heart disease of native coronary artery without angina pectoris; E11.21 Type 2 diabetes mellitus with diabetic nephropathy; E78.5 Hyperlipidemia, unspecified; E83.39 Other disorders of phosphorus metabolism; E87.6 Hypokalemia; T39.395A Adverse effect of other nonsteroidal anti-inflammatory drugs [NSAID], initial encounter; Z99.81 Dependence on supplemental oxygen; Z88.0 Allergy status to penicillin; Z90.49 Acquired absence of other specified parts of digestive tract; Z79.899 Other long term (current) drug therapy; Z68.33 Body mass index [BMI] 33.0-33.9, adult; X58.XXXA Exposure to other specified factors, initial encounter; Y93.89 Activity, other specified; Y92.89 Other specified places as the place of occurrence of the external cause; Y99.8 Other external cause status
CPT/HCPCS: 36415; 43239; 71045; 74176; 80048; 80053; 80202; 81001; 82010; 82043; 82570; 82962; 83036; 83605; 83735; 83880; 83930; 84100; 84300; 84443; 85007; 85025; 85027; 85610; 85730; 86850; 86900; 86901; 86920; 87040; 87077; 87186; 87493; 93005; 93306; 97163; C9113; G0378; J0696; J1815; J1956; J2250; J3430; J3490; J7060

== ENCOUNTER 2019-09-14 15:17 | Emergency (ER) | payer BC ==
[~2019-09-14] VITALS: Ht 172.7 cm; Wt 104.3 kg
[~2019-09-14 15:17] MED LIST changes: -AMOX-263 PO; +ASCO500C49 PO; -ASPI-231 PO; -AZIT250T9 PO; -FAM20T PO; +FERR-20 PO; +LEVO500T21 PO; +METR500T PO; +MISC4CAP PO; +PANT40TA2 PO; -PRED1PAK7 PO
[2019-09-14] MEDS ORDERED: ALBUTEROL SULF 2.5 MG/0.5ML(0.5%) NEB SOLN HHN ONE (16:00)
[2019-09-14] MEDS ORDERED: IPRATROPIUM BROM 0.5 MG/2.5ML INH SOL HHN ONE (16:00)
[2019-09-14] MEDS ORDERED: methylPREDNISolone SOD SUCC 125 MG/2 ML VL IV ONE (16:00)
[2019-09-14 16:03] LABS: Basophils # (auto) 0.1 10 ^3/uL (0-0.2); Eosinophils # (auto) 0.6 10 ^3/uL (0-0.8); Eosinophils % (auto) 6.5 % (0.0-7.0); Hematocrit 34.1 % (41.0-53.0); Hemoglobin 11.1 g/dL (13.5-17.5); Lymphocytes # (auto) 1.8 10 ^3/uL (0.4-5.4); Lymphocytes % (auto) 20.6 % (10.0-50.0); Mean Corpuscular Hemoglobin 26.1 pg (28.0-32.0); Mean Corpuscular Hgb Conc. 32.7 g/dL (32.0-36.0); Monocytes # (auto) 0.8 10 ^3/uL (0-1.3); Monocytes % (auto) 9.8 % (0.0-12.0); Neutrophils # (auto) 5.3 10 ^3/uL (1.6-8.6); Neutrophils % (auto) 62.1 % (37.0-80.0); Nucleated Red Blood Cells % 0.1 %; Platelet Count (auto) 373 10^3/uL (140-450); Red Blood Cells 4.27 10^6/uL (4.5-5.90); Red Cell Distribution Width 15.6 % (11.8-14.3); White Blood Cell 8.6 10^3/uL (4.4-10.8)
[2019-09-14 16:11] LABS: Urine Bacteria NONE SEEN /hpf (None Seen); Urine Blood Negative /uL (Negative); Urine Specific Gravity 1.011 (1.001-1.035); Urine WBC 1 /hpf (0 - 3)
[2019-09-14 16:19] LABS: Albumin 3.1 g/dL (3.4-5.0); Anion Gap 10 (5-15); Blood Urea Nitrogen 14 mg/dL (7-18); Calcium 8.2 mg/dL (8.5-10.1); Carbon Dioxide 21 mmol/L (21-32); Chloride 106 mmol/L (98-107); Glucose 242 mg/dL (74-106); Potassium 3.9 mmol/L (3.5-5.1); Sodium 137 mmol/L (136-145)
[2019-09-14 16:24] LABS: Alanine Aminotransferase 32 U/L (16-61); Alkaline Phosphatase 141 U/L (45-117); Aspartate Aminotransferase 27 U/L (15-37); BUN/Creatinine Ratio 12.1; Bilirubin, Total 0.2 mg/dL (0.2-1.0); GFR African American 79 mL/min; GFR Non-African American 65 mL/min; Total Protein 7.2 g/dL (6.4-8.2)
[2019-09-14] MEDS ORDERED: AZITHROMYCIN 500MG/ 250ML 250 ML IV ONE (16:30)
[2019-09-14] MEDS ORDERED: HYDROcodone-ACET 10/325MG TAB PO ONE (16:45)
[2019-09-14 17:12] LABS: Lactic Acid w/Reflex 2.9 mmol/L (0.4-2.0)
[2019-09-14] MEDS ORDERED: DEXTROSE (50%) 50ML SYRG IV PRN (21:45)
[2019-09-14 22:00] VITALS: BP 137/78
[2019-09-14] MEDS ORDERED: ACETAMINOPHEN 325 MG TAB PO ONE (22:00)
[2019-09-14] MEDS ORDERED: SODIUM CHLORIDE 0.9% 1,000 ML IV ONE ×2 (22:00→23:00)
[2019-09-15] MEDS ORDERED: InsuLIN REG 1unit/0.01ml Soln (100units/ml) SC SCH
[2019-09-15] MEDS ORDERED: ACCU-CHEK COMFORT CURVE STRIP VI SCH
== END 2019-09-14 21:40 | disposition home or self-care (01) ==
LOC: EDBD 15:17 → ER 15:17
DX: J44.0 Chronic obstructive pulmonary disease with (acute) lower respiratory infection (principal); J18.9 Pneumonia, unspecified organism; J90 Pleural effusion, not elsewhere classified; I50.9 Heart failure, unspecified; I25.10 Atherosclerotic heart disease of native coronary artery without angina pectoris; E78.5 Hyperlipidemia, unspecified; I25.2 Old myocardial infarction
CPT/HCPCS: 36415; 71045; 80053; 81001; 82962; 83605; 83735; 83880; 84484; 85025; 87040; 93005; 94640; 96365; 96366; 96372; 96375; 99285; J0456; J1815; J2930; J7030; J7644

== ENCOUNTER 2019-10-14 16:06 | Emergency (ER) | payer BC ==
[~2019-10-14] VITALS: Ht 172.7 cm; Wt 110.2 kg
[2019-10-14 16:59] LABS: Basophils # (auto) 0.1 10 ^3/uL (0-0.2); Eosinophils # (auto) 0.6 10 ^3/uL (0-0.8); Hemoglobin 11.2 g/dL (13.5-17.5); Mean Corpuscular Hemoglobin 24.2 pg (28.0-32.0); Monocytes # (auto) 0.7 10 ^3/uL (0-1.3); Neutrophils # (auto) 3.7 10 ^3/uL (1.6-8.6); White Blood Cell 6.9 10^3/uL (4.4-10.8)
[2019-10-14 17:00] LABS: Eosinophils % (auto) 9.2 % (0.0-7.0); Hematocrit 35.4 % (41.0-53.0); Lymphocytes # (auto) 1.8 10 ^3/uL (0.4-5.4); Lymphocytes % (auto) 25.6 % (10.0-50.0); Mean Corpuscular Hgb Conc. 31.7 g/dL (32.0-36.0); Mean Corpuscular Volume 76.3 fL (80.0-100.0); Monocytes % (auto) 10.2 % (0.0-12.0); Nucleated Red Blood Cells % 0.1 %; Platelet Count (auto) 316 10^3/uL (140-450); Red Blood Cells 4.64 10^6/uL (4.5-5.90); Red Cell Distribution Width 16.1 % (11.8-14.3)
[2019-10-14 17:17] LABS: Alanine Aminotransferase 42 U/L (16-61); Anion Gap 6 (5-15); Aspartate Aminotransferase 33 U/L (15-37); BUN/Creatinine Ratio 10.7; Blood Urea Nitrogen 13 mg/dL (7-18); Calcium 7.8 mg/dL (8.5-10.1); Carbon Dioxide 22 mmol/L (21-32); Chloride 107 mmol/L (98-107); GFR African American 75 mL/min; GFR Non-African American 62 mL/min; Glucose 229 mg/dL (74-106); INR 1.02 (0.9-1.15); Partial Thromboplastin Time 24.8 sec (23.64-32.05); Potassium 3.9 mmol/L (3.5-5.1); Sodium 135 mmol/L (136-145)
[2019-10-14 17:21] LABS: Alkaline Phosphatase 147 U/L (45-117); Bilirubin, Total 0.2 mg/dL (0.2-1.0)
[2019-10-14] MEDS ORDERED: ALBUTEROL SULF 2.5 MG/0.5ML(0.5%) NEB SOLN NEB ONE (17:45)
[2019-10-14] MEDS ORDERED: methylPREDNISolone SOD SUCC 125 MG/2 ML VL IM ONE (17:45)
[2019-10-14] MEDS ORDERED: IPRATROPIUM BROM 0.5 MG/2.5ML INH SOL NEB ONE (17:45)
[2019-10-14 17:55] VITALS: BP 126/80
[2019-10-14] MEDS ORDERED: HYDROcodone-ACET 10/325MG TAB PO ONE (18:00)
== END 2019-10-14 18:17 | disposition home or self-care (01) ==
LOC: ER 16:06
DX: J44.1 Chronic obstructive pulmonary disease with (acute) exacerbation (principal); G89.29 Other chronic pain; R73.9 Hyperglycemia, unspecified; E44.1 Mild protein-calorie malnutrition; I25.10 Atherosclerotic heart disease of native coronary artery without angina pectoris; I50.9 Heart failure, unspecified; E78.5 Hyperlipidemia, unspecified; I25.2 Old myocardial infarction
CPT/HCPCS: 36415; 71045; 80053; 83880; 84484; 85025; 85610; 85730; 93005; 94640; 96372; 99285; J2930; J7644

== ENCOUNTER 2019-11-10 10:55 | Inpatient (IN) | payer BC ==
[~2019-11-10] VITALS: Ht 172.7 cm; Wt 103.6 kg
[2019-11-10] MEDS ORDERED: methylPREDNISolone SOD SUCC 125 MG/2 ML VL IV ONE (11:15)
[2019-11-10 12:14] LABS: Hemoglobin 11.8 g/dL (13.5-17.5); Lymphocytes # (auto) 1.7 10 ^3/uL (0.4-5.4); Monocytes # (auto) 0.7 10 ^3/uL (0-1.3); Nucleated Red Blood Cells % 0.1 %; Red Cell Distribution Width 16.9 % (11.8-14.3)
[2019-11-10 12:17] LABS: Basophils # (auto) 0 10 ^3/uL (0-0.2); Basophils % (auto) 0.5 % (0.0-2.0); Eosinophils # (auto) 0.6 10 ^3/uL (0-0.8); Eosinophils % (auto) 6.6 % (0.0-7.0); Hematocrit 37.3 % (41.0-53.0); Lymphocytes % (auto) 19.1 % (10.0-50.0); Mean Corpuscular Hemoglobin 23.3 pg (28.0-32.0); Mean Corpuscular Hgb Conc. 31.5 g/dL (32.0-36.0); Mean Corpuscular Volume 73.9 fL (80.0-100.0); Monocytes % (auto) 7.6 % (0.0-12.0); Neutrophils # (auto) 5.9 10 ^3/uL (1.6-8.6); Neutrophils % (auto) 66.2 % (37.0-80.0); Platelet Count (auto) 335 10^3/uL (140-450); Red Blood Cells 5.05 10^6/uL (4.5-5.90); White Blood Cell 8.9 10^3/uL (4.4-10.8)
[2019-11-10 12:34] LABS: Chloride 105 mmol/L (98-107); Potassium 4.2 mmol/L (3.5-5.1); Sodium 136 mmol/L (136-145)
[2019-11-10 12:43] LABS: Alanine Aminotransferase 40 U/L (16-61); Albumin 3.3 g/dL (3.4-5.0); Alkaline Phosphatase 131 U/L (45-117); Anion Gap 8 (5-15); Aspartate Aminotransferase 25 U/L (15-37); BUN/Creatinine Ratio 9.6; Bilirubin, Total 0.2 mg/dL (0.2-1.0); Blood Urea Nitrogen 11 mg/dL (7-18); Calcium 8.4 mg/dL (8.5-10.1); Carbon Dioxide 23 mmol/L (21-32); GFR African American 80 mL/min; GFR Non-African American 66 mL/min; Glucose 231 mg/dL (74-106); Lactate Dehydrogenase 121 U/L (87-241); Lactic Acid w/Reflex 3.1 mmol/L (0.4-2.0); Total Protein 7.1 g/dL (6.4-8.2)
[2019-11-10 13:02] LABS: Urine Bacteria NONE SEEN /hpf (None Seen); Urine Blood Negative /uL (Negative); Urine Specific Gravity 1.012 (1.001-1.035); Urine WBC 2 /hpf (0 - 3)
[2019-11-10] MEDS ORDERED: cefTRIAXone 1GM/50ML D5W 50 ML IV ONE (14:45)
[2019-11-10] MEDS ORDERED: MORPHINE SULF INJ 2 MG/ML SYRINGE 1ML IV PRN (15:00)
[2019-11-10] MEDS ORDERED: NITROGLYCERIN 0.4 MG SL TAB SL PRN (15:00)
[2019-11-10] MEDS ORDERED: DEXTROSE (50%) 50ML SYRG IV PRN (15:00)
[2019-11-10] MEDS ORDERED: SODIUM CHLORIDE 0.9% 500 ML IV ONE (15:15)
[2019-11-10 15:58] VITALS: BP 136/76
[2019-11-10] MEDS: ACCU-CHEK COMFORT CURVE STRIP VI SCH ×2 (17:03→22:52)
[2019-11-10] MEDS: InsuLIN REG 1unit/0.01ml Soln (100units/ml) SC SCH ×2 (17:06→23:32)
[2019-11-10 22:00] VITALS: BP_SYST 115; BP_SYST 160; BP_DIAS 65; BP_DIAS 84
[2019-11-10] MEDS ORDERED: ALBUTEROL SULF HFA 90MCG INH 200DOSE IN SCH (22:00)
[2019-11-10] MEDS ORDERED: ALBUTEROL SULF 2.5 MG/0.5ML(0.5%) NEB SOLN NEB PRN (22:15)
[2019-11-10] MEDS ORDERED: IPRATROPIUM BROM 0.5 MG/2.5ML INH SOL NEB PRN (22:15)
[2019-11-10] MEDS ORDERED: ALBUTEROL SULF 2.5 MG/0.5ML(0.5%) NEB SOLN ONE (22:37)
[2019-11-10] MEDS ORDERED: IPRATROPIUM BROM 0.5 MG/2.5ML INH SOL ONE (22:37)
[2019-11-10] MEDS: methylPREDNISolone SOD SUCC 40 MG/ML VL IV SCH (22:52)
[2019-11-10] MEDS: AZITHROMYCIN 500MG/ 250ML 250 ML IV SCH (22:52)
[2019-11-10] MEDS ORDERED: ZOLPIDEM TARTRATE 5 MG TAB PO ONE (23:00)
[2019-11-11 00:58] VITALS: BP 136/76
[2019-11-11 05:00] VITALS: BP_SYST 117
[2019-11-11 05:58] LABS: Basophils # (auto) 0 10 ^3/uL (0-0.2); Basophils % (auto) 0.2 % (0.0-2.0); Eosinophils # (auto) 0 10 ^3/uL (0-0.8); Hematocrit 36.7 % (41.0-53.0); Hemoglobin 11.7 g/dL (13.5-17.5); Lymphocytes # (auto) 1.2 10 ^3/uL (0.4-5.4); Lymphocytes % (auto) 10.7 % (10.0-50.0); Mean Corpuscular Hemoglobin 23.6 pg (28.0-32.0); Mean Corpuscular Hgb Conc. 31.9 g/dL (32.0-36.0); Monocytes # (auto) 0.3 10 ^3/uL (0-1.3); Monocytes % (auto) 2.3 % (0.0-12.0); Neutrophils # (auto) 9.9 10 ^3/uL (1.6-8.6); Neutrophils % (auto) 86.8 % (37.0-80.0); Nucleated Red Blood Cells % 0.1 %; Platelet Count (auto) 339 10^3/uL (140-450); Red Blood Cells 4.96 10^6/uL (4.5-5.90); Red Cell Distribution Width 17.1 % (11.8-14.3); White Blood Cell 11.4 10^3/uL (4.4-10.8)
[2019-11-11] MEDS: methylPREDNISolone SOD SUCC 40 MG/ML VL IV SCH (06:00)
[2019-11-11 06:16] LABS: BUN/Creatinine Ratio 13.4; Calcium 8.7 mg/dL (8.5-10.1); Potassium 4.6 mmol/L (3.5-5.1)
[2019-11-11] MEDS: ACCU-CHEK COMFORT CURVE STRIP VI SCH ×2 (06:34→12:11)
[2019-11-11] MEDS: InsuLIN REG 1unit/0.01ml Soln (100units/ml) SC SCH ×2 (06:37→12:12)
[2019-11-11 08:00] VITALS: BP 91/54
[2019-11-11] MEDS: AZITHROMYCIN 500MG/ 250ML 250 ML IV SCH (09:28)
[2019-11-11 09:29] VITALS: BP 91/54
[2019-11-11] MEDS ORDERED: AZITHROMYCIN 500MG/ 250ML 250 ML IV SCH (10:00)
[2019-11-11 12:07] VITALS: BP 91/54
[2019-11-11 13:00] VITALS: BP 106/65
== END 2019-11-11 14:25 | disposition home health service (06) | DRG 191 ==
LOC: ER 10:55 → TELE 10:56 → TELE-EAST 16:17 → TELE-CENTR 17:49
PROVIDERS: ADMIT Internal Medicine; ATTEND Internal Medicine
DX: J44.1 Chronic obstructive pulmonary disease with (acute) exacerbation (principal); J96.11 Chronic respiratory failure with hypoxia; J84.9 Interstitial pulmonary disease, unspecified; I50.9 Heart failure, unspecified; Z20.828 Contact with and (suspected) exposure to other viral communicable diseases; E78.5 Hyperlipidemia, unspecified; I11.0 Hypertensive heart disease with heart failure; I25.10 Atherosclerotic heart disease of native coronary artery without angina pectoris; Z82.49 Family history of ischemic heart disease and other diseases of the circulatory system; Z99.81 Dependence on supplemental oxygen; Z90.49 Acquired absence of other specified parts of digestive tract
CPT/HCPCS: 36415; 71045; 80048; 80053; 81001; 82728; 82962; 83605; 83615; 83880; 84484; 85025; 86141; 87040; 93005; 94640; 96365; 96375; G0378; J0696; J1815

== ENCOUNTER 2019-11-13 12:29 | Emergency (ER) | payer BC ==
[~2019-11-13] VITALS: Ht 172.7 cm; Wt 104.3 kg
[2019-11-13 12:38] VITALS: BP 141/86
[2019-11-13 13:42] LABS: Basophils # (auto) 0.1 10 ^3/uL (0-0.2); Eosinophils # (auto) 0.1 10 ^3/uL (0-0.8); Eosinophils % (auto) 0.6 % (0.0-7.0); Lymphocytes # (auto) 1.4 10 ^3/uL (0.4-5.4)
[2019-11-13 13:44] LABS: Basophils % (auto) 0.6 % (0.0-2.0); Hematocrit 37.4 % (41.0-53.0); Hemoglobin 11.8 g/dL (13.5-17.5); Lymphocytes % (auto) 15.3 % (10.0-50.0); Mean Corpuscular Hemoglobin 23.3 pg (28.0-32.0); Mean Corpuscular Hgb Conc. 31.6 g/dL (32.0-36.0); Mean Corpuscular Volume 73.7 fL (80.0-100.0); Monocytes # (auto) 0.6 10 ^3/uL (0-1.3); Monocytes % (auto) 6.3 % (0.0-12.0); Neutrophils # (auto) 7.1 10 ^3/uL (1.6-8.6); Neutrophils % (auto) 77.2 % (37.0-80.0); Nucleated Red Blood Cells % 0.1 %; Platelet Count (auto) 383 10^3/uL (140-450); Red Blood Cells 5.08 10^6/uL (4.5-5.90); Red Cell Distribution Width 17.5 % (11.8-14.3); White Blood Cell 9.2 10^3/uL (4.4-10.8)
[2019-11-13 13:52] LABS: Alanine Aminotransferase 47 U/L (16-61); Albumin 3.4 g/dL (3.4-5.0); Anion Gap 8 (5-15); Aspartate Aminotransferase 37 U/L (15-37); BUN/Creatinine Ratio 15.3; Blood Urea Nitrogen 21 mg/dL (7-18); Calcium 8.1 mg/dL (8.5-10.1); Carbon Dioxide 22 mmol/L (21-32); Chloride 104 mmol/L (98-107); GFR African American 65 mL/min; GFR Non-African American 54 mL/min; Glucose 239 mg/dL (74-106); Potassium 4.5 mmol/L (3.5-5.1); Sodium 134 mmol/L (136-145)
[2019-11-13 13:57] LABS: Alkaline Phosphatase 115 U/L (45-117); Bilirubin, Total 0.3 mg/dL (0.2-1.0); Total Protein 7.2 g/dL (6.4-8.2)
[2019-11-13] MEDS ORDERED: methylPREDNISolone SOD SUCC 125 MG/2 ML VL IM ONE (15:45)
[2019-11-13] MEDS ORDERED: IPRATROPIUM BROM 0.5 MG/2.5ML INH SOL NEB ONE (15:45)
[2019-11-13] MEDS ORDERED: ALBUTEROL SULF 2.5 MG/0.5ML(0.5%) NEB SOLN NEB ONE (15:45)
== END 2019-11-13 17:06 | disposition left against medical advice (07) ==
LOC: ER 12:29
DX: J44.1 Chronic obstructive pulmonary disease with (acute) exacerbation (principal); I25.10 Atherosclerotic heart disease of native coronary artery without angina pectoris; I50.9 Heart failure, unspecified; E78.5 Hyperlipidemia, unspecified; I25.2 Old myocardial infarction
CPT/HCPCS: 36415; 71045; 80053; 83880; 84484; 85025; 93005

== ENCOUNTER 2019-11-27 15:02 | Emergency (ER) | payer BC ==
[~2019-11-27] VITALS: Ht 172.7 cm; Wt 104.3 kg
[2019-11-27] MEDS ORDERED: ASPirin 81 mg TAB PO ONE (15:30)
[2019-11-27] MEDS ORDERED: SODIUM CHL 0.9% 50 ML ONE (15:53)
[2019-11-27] MEDS ORDERED: IODIXANOL 320MG/ML 100ML BTL IV ONE (15:53)
[2019-11-27] MEDS ORDERED: fentaNYL CITRATE 100 MCG/2 ML VL ONE (15:53)
[2019-11-27] MEDS ORDERED: LIDOCAINE 2%HCL (LOCAL ANESTH.) INJ 20ML MDV ONE ×2 (15:53→15:54)
[2019-11-27] MEDS ORDERED: DOPamine 1600MCG/ML D5W 0 ML IV ONE (15:53)
[2019-11-27] MEDS ORDERED: ANGIOMAX 250 MG VIAL IV ONE (15:53)
[2019-11-27] MEDS ORDERED: MIDAZOLAM HCL 1MG/1ML-2 ML VIAL ONE (15:53)
[2019-11-27] MEDS ORDERED: ATROPINE SULF 1 MG/10ml SYR ONE (15:53)
[2019-11-27 15:54] LABS: Basophils # (auto) 0.1 10 ^3/uL (0-0.2); Eosinophils # (auto) 0.3 10 ^3/uL (0-0.8); Neutrophils # (auto) 6.2 10 ^3/uL (1.6-8.6)
[2019-11-27 15:56] LABS: Basophils % (auto) 1.4 % (0.0-2.0); Eosinophils % (auto) 3.1 % (0.0-7.0); Hematocrit 35.5 % (41.0-53.0); Hemoglobin 11.3 g/dL (13.5-17.5); Lymphocytes # (auto) 1.9 10 ^3/uL (0.4-5.4); Lymphocytes % (auto) 20.1 % (10.0-50.0); Mean Corpuscular Hemoglobin 23.6 pg (28.0-32.0); Mean Corpuscular Hgb Conc. 31.8 g/dL (32.0-36.0); Mean Corpuscular Volume 74.3 fL (80.0-100.0); Monocytes # (auto) 0.8 10 ^3/uL (0-1.3); Monocytes % (auto) 8.2 % (0.0-12.0); Neutrophils % (auto) 67.2 % (37.0-80.0); Platelet Count (auto) 250 10^3/uL (140-450); Red Blood Cells 4.78 10^6/uL (4.5-5.90); Red Cell Distribution Width 18.3 % (11.8-14.3); White Blood Cell 9.2 10^3/uL (4.4-10.8)
[2019-11-27 16:08] LABS: Albumin 3.2 g/dL (3.4-5.0); Anion Gap 7 (5-15); Blood Urea Nitrogen 11 mg/dL (7-18); Calcium 8.3 mg/dL (8.5-10.1); Carbon Dioxide 24 mmol/L (21-32); Chloride 106 mmol/L (98-107); Glucose 244 mg/dL (74-106); Potassium 3.6 mmol/L (3.5-5.1); Sodium 137 mmol/L (136-145)
[2019-11-27 16:14] LABS: Alanine Aminotransferase 35 U/L (16-61); Alkaline Phosphatase 116 U/L (45-117); Aspartate Aminotransferase 28 U/L (15-37); BUN/Creatinine Ratio 8.8; Bilirubin, Total 0.5 mg/dL (0.2-1.0); GFR African American 72 mL/min; GFR Non-African American 60 mL/min
[2019-11-27 16:31] LABS: INR 1.01 (0.9-1.15); Partial Thromboplastin Time 24.3 sec (23.64-32.05)
[2019-11-27 20:18] VITALS: BP 100/66
== END 2019-11-27 21:00 | disposition home or self-care (01) ==
LOC: ER 15:02
DX: I21.3 ST elevation (STEMI) myocardial infarction of unspecified site (principal); J44.9 Chronic obstructive pulmonary disease, unspecified; E78.5 Hyperlipidemia, unspecified; I50.9 Heart failure, unspecified; I25.2 Old myocardial infarction; Z90.49 Acquired absence of other specified parts of digestive tract; Z98.61 Coronary angioplasty status
CPT/HCPCS: 36415; 71045; 80053; 83735; 84484; 85025; 85610; 85730; 93005; 99285; C1887; C1894; J0583; J1644; Q9967; J2250

== ENCOUNTER 2020-01-11 11:53 | Emergency (ER) | payer BC ==
[~2020-01-11] VITALS: Ht 172.7 cm; Wt 104.3 kg
[2020-01-11] MEDS ORDERED: methylPREDNISolone SOD SUCC 125 MG/2 ML VL IM ONE (13:15)
[2020-01-11] MEDS ORDERED: IPRATROPIUM BROM 0.5 MG/2.5ML INH SOL NEB ONE (13:15)
[2020-01-11] MEDS ORDERED: cefTRIAXone W LIDOCAINE 1 GM IM IM ONE (13:15)
[2020-01-11] MEDS ORDERED: ALBUTEROL SULF 2.5 MG/0.5ML(0.5%) NEB SOLN NEB ONE (13:15)
[2020-01-11] MEDS ORDERED: LIDOCAINE 1% HCL (LOCAL ANESTH.) INJ 20ML MDV ONE (13:39)
[2020-01-11] MEDS ORDERED: cefTRIAXone SOD 1,000 MG VL ONE (13:40)
[2020-01-11 13:56] VITALS: BP 114/72
== END 2020-01-11 13:57 | disposition home or self-care (01) ==
LOC: ER 11:53
DX: J18.9 Pneumonia, unspecified organism (principal); J44.1 Chronic obstructive pulmonary disease with (acute) exacerbation; E78.5 Hyperlipidemia, unspecified; I25.2 Old myocardial infarction; Z90.49 Acquired absence of other specified parts of digestive tract; Z98.61 Coronary angioplasty status
CPT/HCPCS: 71045; 94640; 96372; 99284; J0696; J2001; J2930; J7644

== ENCOUNTER → 2020-02-04 | Emergency (ER) | payer BC ==
[~2020-02-04] VITALS: Ht 172.7 cm; Wt 104.3 kg
[~2020-02-04] MED LIST changes: +ALBUTEROL SULF 2.5 MG/0.5ML(0.5%) NEB SOLN NEB ONE; +AZITHROMYCIN 500MG/ 250ML 250 ML IV ONE; +FUROSEMIDE 20 MG/2 ML VIAL IV ONE; +FUROSEMIDE 40 MG/4 ML VIAL IV ONE; +IPRATROPIUM BROM 0.5 MG/2.5ML INH SOL NEB ONE; +cefTRIAXone 1GM/50ML D5W 50 ML IV ONE; +methylPREDNISolone SOD SUCC 125 MG/2 ML VL IV ONE; +methylPREDNISolone SOD SUCC 125 MG/2 ML VL ONE
[2020-02-04 05:39] LABS: Basophils # (auto) 0.1 10 ^3/uL (0-0.2); Eosinophils # (auto) 1.5 10 ^3/uL (0-0.8); Lymphocytes % (auto) 20.4 % (10.0-50.0); Monocytes # (auto) 0.7 10 ^3/uL (0-1.3)
[2020-02-04 05:43] LABS: Basophils % (auto) 1.2 % (0.0-2.0); Hemoglobin 11.5 g/dL (13.5-17.5); Mean Corpuscular Hemoglobin 24.1 pg (28.0-32.0); Mean Corpuscular Hgb Conc. 31.1 g/dL (32.0-36.0); Mean Corpuscular Volume 77.4 fL (80.0-100.0); Monocytes % (auto) 7.3 % (0.0-12.0); Neutrophils # (auto) 5.5 10 ^3/uL (1.6-8.6); Neutrophils % (auto) 55.9 % (37.0-80.0); Nucleated Red Blood Cells % 0.1 %; Platelet Count (auto) 377 10^3/uL (140-450); Red Blood Cells 4.78 10^6/uL (4.5-5.90); Red Cell Distribution Width 17.8 % (11.8-14.3); White Blood Cell 9.8 10^3/uL (4.4-10.8)
[2020-02-04 05:48] LABS: Eosinophils % (auto) 15.2 % (0.0-7.0)
[2020-02-04 06:05] LABS: Alanine Aminotransferase 39 U/L (16-61); Albumin 3.2 g/dL (3.4-5.0); Anion Gap 7 (5-15); Blood Urea Nitrogen 12 mg/dL (7-18); Calcium 8.5 mg/dL (8.5-10.1); Carbon Dioxide 25 mmol/L (21-32); Chloride 106 mmol/L (98-107); Glucose 197 mg/dL (74-106); Magnesium 2.2 mg/dL (1.6-2.6); Potassium 3.9 mmol/L (3.5-5.1); Sodium 138 mmol/L (136-145)
[2020-02-04 06:12] LABS: Lactic Acid w/Reflex 2.3 mmol/L (0.4-2.0)
[2020-02-04 06:14] LABS: Alkaline Phosphatase 119 U/L (45-117); Aspartate Aminotransferase 33 U/L (15-37); BUN/Creatinine Ratio 10.9; Bilirubin, Total 0.3 mg/dL (0.2-1.0); GFR African American 84 mL/min; GFR Non-African American 69 mL/min
[2020-02-04 06:26] LABS: INR 1.05 (0.9-1.15); Partial Thromboplastin Time 27.1 sec (23.0-31.2)
[2020-02-04 07:24] LABS: Urine Bacteria FEW /hpf (None Seen); Urine Blood Negative /uL (Negative); Urine Specific Gravity 1.005 (1.001-1.035); Urine WBC 1 /hpf (0 - 3)
[2020-02-04 15:00] VITALS: BP 143/77
--- NOTE | 2020-02-05 08:18 | NUR ---
Dr. Hong and CORNELL Juan arranged hospice order at ER.
== END | disposition home or self-care (01) ==
LOC: ER 04:40
DX: J44.1 Chronic obstructive pulmonary disease with (acute) exacerbation (principal); J18.9 Pneumonia, unspecified organism; Z20.828 Contact with and (suspected) exposure to other viral communicable diseases
CPT/HCPCS: 36415; 71045; 71275; 80053; 81001; 83605; 83735; 83880; 84484; 85025; 85379; 85610; 85730; 87040; 87426; 93005; 94640; 96365; 96366; 96367; 96375; 96376; 99285; C9803; J0456; J0696; J1940; J2930; J7644; U0003

== ENCOUNTER 2020-02-07 14:18 | Emergency (ER) | payer BC ==
[~2020-02-07] VITALS: Ht 172.7 cm; Wt 104.3 kg
[~2020-02-07 14:18] MED LIST changes: -ALBUTEROL SULF 2.5 MG/0.5ML(0.5%) NEB SOLN NEB ONE; -AZITHROMYCIN 500MG/ 250ML 250 ML IV ONE; -FUROSEMIDE 20 MG/2 ML VIAL IV ONE; -FUROSEMIDE 40 MG/4 ML VIAL IV ONE; -IPRATROPIUM BROM 0.5 MG/2.5ML INH SOL NEB ONE; -cefTRIAXone 1GM/50ML D5W 50 ML IV ONE; -methylPREDNISolone SOD SUCC 125 MG/2 ML VL IV ONE; -methylPREDNISolone SOD SUCC 125 MG/2 ML VL ONE
[2020-02-07 14:54] LABS: Eosinophils # (auto) 1.2 10 ^3/uL (0-0.8); Lymphocytes # (auto) 1.7 10 ^3/uL (0.4-5.4); Mean Corpuscular Hgb Conc. 30.5 g/dL (32.0-36.0); Monocytes # (auto) 0.7 10 ^3/uL (0-1.3)
[2020-02-07] MEDS ORDERED: SODIUM CHLORIDE 0.9% 1,000 ML IV ONE (14:54)
[2020-02-07 14:56] LABS: Basophils # (auto) 0 10 ^3/uL (0-0.2); Basophils % (auto) 0.5 % (0.0-2.0); Eosinophils % (auto) 14.5 % (0.0-7.0); Hematocrit 39.2 % (41.0-53.0); Lymphocytes % (auto) 20.1 % (10.0-50.0); Mean Corpuscular Hemoglobin 23.7 pg (28.0-32.0); Mean Corpuscular Volume 77.6 fL (80.0-100.0); Monocytes % (auto) 8.9 % (0.0-12.0); Neutrophils # (auto) 4.7 10 ^3/uL (1.6-8.6); Nucleated Red Blood Cells % 0.1 %; Platelet Count (auto) 372 10^3/uL (140-450); Red Blood Cells 5.06 10^6/uL (4.5-5.90); Red Cell Distribution Width 17.7 % (11.8-14.3); White Blood Cell 8.3 10^3/uL (4.4-10.8)
[2020-02-07] MEDS ORDERED: ALBUTEROL SULF 2.5 MG/0.5ML(0.5%) NEB SOLN NEB ONE (15:00)
[2020-02-07] MEDS ORDERED: IPRATROPIUM BROM 0.5 MG/2.5ML INH SOL NEB ONE (15:00)
[2020-02-07] MEDS ORDERED: methylPREDNISolone SOD SUCC 125 MG/2 ML VL IV ONE (15:00)
[2020-02-07] MEDS ORDERED: AZITHROMYCIN 500MG/ 250ML 250 ML IV ONE (15:00)
[2020-02-07 15:16] LABS: Albumin 3.2 g/dL (3.4-5.0); Anion Gap 7 (5-15); Blood Urea Nitrogen 16 mg/dL (7-18); Calcium 8.5 mg/dL (8.5-10.1); Carbon Dioxide 28 mmol/L (21-32); Chloride 103 mmol/L (98-107); Glucose 160 mg/dL (74-106); Magnesium 2.4 mg/dL (1.6-2.6); Potassium 3.9 mmol/L (3.5-5.1); Sodium 138 mmol/L (136-145)
[2020-02-07 15:21] LABS: Alanine Aminotransferase 51 U/L (16-61); Alkaline Phosphatase 122 U/L (45-117); Aspartate Aminotransferase 45 U/L (15-37); BUN/Creatinine Ratio 12.1; Bilirubin, Total 0.3 mg/dL (0.2-1.0); GFR African American 68 mL/min; GFR Non-African American 56 mL/min; Total Protein 7.1 g/dL (6.4-8.2)
[2020-02-07 16:39] VITALS: BP 124/77
== END 2020-02-07 17:30 | disposition home or self-care (01) ==
LOC: ER 14:18
DX: J44.1 Chronic obstructive pulmonary disease with (acute) exacerbation (principal); E11.21 Type 2 diabetes mellitus with diabetic nephropathy; R07.89 Other chest pain; I25.10 Atherosclerotic heart disease of native coronary artery without angina pectoris; I50.9 Heart failure, unspecified; K21.9 Gastro-esophageal reflux disease without esophagitis; E78.5 Hyperlipidemia, unspecified; I25.2 Old myocardial infarction
CPT/HCPCS: 36415; 71045; 80053; 83735; 84443; 84484; 85025; 93005; 94640; 96365; 96366; 96375; 99285; J0456; J2930; J7644

== ENCOUNTER 2020-02-26 02:03 | Emergency (ER) | payer BC ==
[~2020-02-26] VITALS: Ht 172.7 cm; Wt 104.3 kg
[2020-02-26] MEDS ORDERED: ALBUTEROL SULF 2.5 MG/0.5ML(0.5%) NEB SOLN NEB STA (02:19)
[2020-02-26] MEDS ORDERED: IPRATROPIUM BROM 0.5 MG/2.5ML INH SOL NEB ONE (02:30)
[2020-02-26 03:06] LABS: Hematocrit 40.7 % (41.0-53.0); Hemoglobin 13.1 g/dL (13.5-17.5); Mean Corpuscular Hgb Conc. 32.2 g/dL (32.0-36.0); Mean Corpuscular Volume 77.7 fL (80.0-100.0); Platelet Count (auto) 313 10^3/uL (140-450); Red Blood Cells 5.24 10^6/uL (4.5-5.90); Red Cell Distribution Width 17.7 % (11.8-14.3); White Blood Cell 10.3 10^3/uL (4.4-10.8)
[2020-02-26 03:22] LABS: Albumin 3.5 g/dL (3.4-5.0); Anion Gap 5 (5-15); Blood Urea Nitrogen 11 mg/dL (7-18); Calcium 8.6 mg/dL (8.5-10.1); Carbon Dioxide 26 mmol/L (21-32); Chloride 108 mmol/L (98-107); Glucose 190 mg/dL (74-106); Potassium 4.5 mmol/L (3.5-5.1); Sodium 139 mmol/L (136-145)
[2020-02-26 03:23] LABS: Partial Thromboplastin Time 26.3 sec (23.0-31.2)
[2020-02-26 03:28] LABS: Alanine Aminotransferase 32 U/L (16-61); Alkaline Phosphatase 128 U/L (45-117); Aspartate Aminotransferase 20 U/L (15-37); BUN/Creatinine Ratio 8.7; Bilirubin, Total 0.3 mg/dL (0.2-1.0); GFR African American 71 mL/min; GFR Non-African American 59 mL/min; Total Protein 7.1 g/dL (6.4-8.2)
[2020-02-26 03:33] LABS: Band Neutrophils % (manual) 0; Basophils % (manual) 0 (0.0-2.0); Blast Cells 0; Metamyelocytes % 0; Myelocytes % 0; Promyelocytes % 0; Reactive Lymphocytes 0
[2020-02-26 04:14] LABS: Eosinophils % (manual) 12 (0-7); Lymphocytes % (manual) 18 (10.0-50.0); Monocytes % (manual) 6 (0-12)
[2020-02-26] MEDS ORDERED: MAGNESIUM SULFATE 1GM/100ML 100 ML IV ONE (09:45)
[2020-02-26] MEDS ORDERED: ALBUTEROL SULF 2.5 MG/0.5ML(0.5%) NEB SOLN NEB ONE (09:45)
[2020-02-26] MEDS ORDERED: methylPREDNISolone SOD SUCC 125 MG/2 ML VL IV ONE (09:45)
[2020-02-26 11:56] VITALS: BP 121/65
== END 2020-02-26 12:50 | disposition home or self-care (01) ==
LOC: ER 02:03
DX: J44.1 Chronic obstructive pulmonary disease with (acute) exacerbation (principal); J18.9 Pneumonia, unspecified organism; Z20.828 Contact with and (suspected) exposure to other viral communicable diseases
CPT/HCPCS: 36415; 71045; 80053; 82728; 83880; 84484; 85007; 85027; 85610; 85730; 87426; 93005; 94640; 96365; 96375; 99285; C9803; J2930; J3475; J7644; U0003

== ENCOUNTER 2020-08-05 22:31 | Emergency (ER) | payer BC ==
[~2020-08-05] VITALS: Ht 172.7 cm; Wt 104.3 kg
[~2020-08-05 22:31] MED LIST changes: -LEVO500T21 PO; +LEVO500T31 PO
[2020-08-05] MEDS ORDERED: IPRATROPIUM BROM 0.5 MG/2.5ML INH SOL NEB ONE (23:30)
[2020-08-05] MEDS ORDERED: ALBUTEROL SULF 2.5 MG/0.5ML(0.5%) NEB SOLN NEB ONE (23:30)
[2020-08-05 23:36] LABS: Basophils # (auto) 0.1 10 ^3/uL (0-0.2); Basophils % (auto) 0.9 % (0.0-2.0); Eosinophils # (auto) 0.9 10 ^3/uL (0-0.8); Eosinophils % (auto) 10.8 % (0.0-7.0); Hematocrit 42.5 % (41.0-53.0); Hemoglobin 14.1 g/dL (13.5-17.5); Lymphocytes # (auto) 1.9 10 ^3/uL (0.4-5.4); Lymphocytes % (auto) 22.9 % (10.0-50.0); Mean Corpuscular Hemoglobin 27.4 pg (28.0-32.0); Mean Corpuscular Hgb Conc. 33.2 g/dL (32.0-36.0); Mean Corpuscular Volume 82.7 fL (80.0-100.0); Monocytes # (auto) 0.6 10 ^3/uL (0-1.3); Monocytes % (auto) 7.4 % (0.0-12.0); Neutrophils # (auto) 4.8 10 ^3/uL (1.6-8.6); Nucleated Red Blood Cells % 0.1 %; Platelet Count (auto) 282 10^3/uL (140-450); Red Blood Cells 5.15 10^6/uL (4.5-5.90); Red Cell Distribution Width 16.8 % (11.8-14.3); White Blood Cell 8.2 10^3/uL (4.4-10.8)
[2020-08-06 00:01] LABS: Alanine Aminotransferase 52 U/L (16-61); Albumin 3.3 g/dL (3.4-5.0); Anion Gap 7 (5-15); Blood Urea Nitrogen 14 mg/dL (7-18); Calcium 8.4 mg/dL (8.5-10.1); Carbon Dioxide 27 mmol/L (21-32); Chloride 105 mmol/L (98-107); Glucose 210 mg/dL (74-106); Potassium 4.6 mmol/L (3.5-5.1); Sodium 139 mmol/L (136-145)
[2020-08-06 00:08] LABS: Alkaline Phosphatase 143 U/L (45-117); Aspartate Aminotransferase 38 U/L (15-37); BUN/Creatinine Ratio 12.1; Bilirubin, Total 0.3 mg/dL (0.2-1.0); GFR African American 79 mL/min; GFR Non-African American 65 mL/min; Total Protein 7.3 g/dL (6.4-8.2)
[2020-08-06 02:06] VITALS: BP 109/68
[2020-08-06] MEDS ORDERED: methylPREDNISolone SOD SUCC 125 MG/2 ML VL IV ONE (03:00)
== END 2020-08-06 04:22 | disposition home or self-care (01) ==
LOC: ER 22:31
DX: J44.1 Chronic obstructive pulmonary disease with (acute) exacerbation (principal); K21.9 Gastro-esophageal reflux disease without esophagitis; E78.5 Hyperlipidemia, unspecified; I25.2 Old myocardial infarction; Z98.61 Coronary angioplasty status; Z90.49 Acquired absence of other specified parts of digestive tract
CPT/HCPCS: 36415; 71045; 80053; 83880; 84484; 85025; 93005; 94640; 96374; 99285; J2930; J7644

== ENCOUNTER 2020-10-13 13:22 | Inpatient (IN) | payer BC, OTHER ==
[~2020-10-13] VITALS: Ht 172.7 cm; Wt 108.9 kg
[2020-10-13 15:01] LABS: Basophils # (auto) 0.1 10 ^3/uL (0-0.2); Basophils % (auto) 0.8 % (0.0-2.0); Eosinophils # (auto) 1.1 10 ^3/uL (0-0.8); Eosinophils % (auto) 10.8 % (0.0-7.0); Hematocrit 43.4 % (41.0-53.0); Hemoglobin 14.6 g/dL (13.5-17.5); Lymphocytes # (auto) 1.9 10 ^3/uL (0.4-5.4); Lymphocytes % (auto) 18.3 % (10.0-50.0); Mean Corpuscular Hemoglobin 28.7 pg (28.0-32.0); Mean Corpuscular Hgb Conc. 33.7 g/dL (32.0-36.0); Mean Corpuscular Volume 85.4 fL (80.0-100.0); Monocytes # (auto) 0.8 10 ^3/uL (0-1.3); Monocytes % (auto) 7.5 % (0.0-12.0); Neutrophils # (auto) 6.4 10 ^3/uL (1.6-8.6); Neutrophils % (auto) 62.6 % (37.0-80.0); Nucleated Red Blood Cells % 0.1 %; Platelet Count (auto) 277 10^3/uL (140-450); Red Blood Cells 5.08 10^6/uL (4.5-5.90); Red Cell Distribution Width 15.9 % (11.8-14.3); White Blood Cell 10.3 10^3/uL (4.4-10.8)
[2020-10-13 15:18] LABS: Alanine Aminotransferase 42 U/L (16-61); Albumin 3.3 g/dL (3.4-5.0); Anion Gap 8 (5-15); Aspartate Aminotransferase 27 U/L (15-37); BUN/Creatinine Ratio 7.1; Blood Urea Nitrogen 9 mg/dL (7-18); Calcium 8.4 mg/dL (8.5-10.1); Carbon Dioxide 27 mmol/L (21-32); Chloride 104 mmol/L (98-107); GFR African American 71 mL/min; GFR Non-African American 59 mL/min; Glucose 260 mg/dL (74-106); Potassium 3.9 mmol/L (3.5-5.1); Sodium 139 mmol/L (136-145)
[2020-10-13 15:22] LABS: Alkaline Phosphatase 126 U/L (45-117); Bilirubin, Total 0.3 mg/dL (0.2-1.0)
[2020-10-13] MEDS ORDERED: IPRATROPIUM BROM 0.5 MG/2.5ML INH SOL NEB ONE (18:15)
[2020-10-13] MEDS ORDERED: ALBUTEROL SULF 2.5 MG/0.5ML(0.5%) NEB SOLN NEB ONE (18:15)
[2020-10-13] MEDS ORDERED: FUROSEMIDE 20 MG/2 ML VIAL IV ONE (18:15)
[2020-10-13] MEDS ORDERED: ARTIFICIAL TEARS 15ml EACHEYE ONE (18:15)
[2020-10-13] MEDS ORDERED: methylPREDNISolone SOD SUCC 125 MG/2 ML VL IV ONE (18:15)
[2020-10-13] MEDS ORDERED: DEXTROSE (50%) 50ML SYRG IV PRN (21:30)
[2020-10-13 21:47] VITALS: BP 129/78
[2020-10-14] MEDS ORDERED: InsuLIN REG 1unit/0.01ml Soln (100units/ml) SC SCH
[2020-10-14] MEDS ORDERED: ACCU-CHEK COMFORT CURVE STRIP VI SCH
[2020-10-14] MEDS ORDERED: FUROSEMIDE 20 MG/2 ML VIAL IV SCH (06:00)
[2020-10-14] MEDS ORDERED: predniSONE 20 MG TAB PO SCH (10:00)
[2020-10-14] MEDS ORDERED: ENALAPRIL MALEATE 2.5 MG TAB PO SCH (10:00)
[2020-10-14] MEDS ORDERED: METOPROLOL TARTRATE 25 MG TAB PO SCH (10:00)
[2020-10-14] MEDS ORDERED: ENOXAPARIN SOD 40 MG/0.4 ML SYRINGE SC SCH (10:00)
[2020-10-14] MEDS ORDERED: cefTRIAXone 1GM/50ML D5W 50 ML IV SCH (10:00)
== END 2020-10-13 23:15 | disposition left against medical advice (07) | DRG 192 ==
LOC: ER 13:22 → TELE 21:20
PROVIDERS: ADMIT Hospitalist; ATTEND Hospitalist
DX: J44.1 Chronic obstructive pulmonary disease with (acute) exacerbation (principal); Z20.822 Contact with and (suspected) exposure to COVID-19; E78.5 Hyperlipidemia, unspecified; I25.10 Atherosclerotic heart disease of native coronary artery without angina pectoris; I50.9 Heart failure, unspecified; Z53.29 Procedure and treatment not carried out because of patient's decision for other reasons; K21.9 Gastro-esophageal reflux disease without esophagitis; Z90.49 Acquired absence of other specified parts of digestive tract; I25.2 Old myocardial infarction; Z82.49 Family history of ischemic heart disease and other diseases of the circulatory system; Z99.81 Dependence on supplemental oxygen
CPT/HCPCS: 36415; 71046; 80053; 83880; 84484; 85025; 87426; 93005; 94640; 96374; 96375; G0378

== ENCOUNTER 2021-02-09 03:06 | Emergency (ER) | payer OTHER ==
[~2021-02-09] VITALS: Ht 172.7 cm; Wt 106.6 kg
[2021-02-09 04:00] LABS: Basophils # (auto) 0.1 10 ^3/uL (0-0.2); Eosinophils # (auto) 0.5 10 ^3/uL (0-0.8); Eosinophils % (auto) 5.6 % (0.0-7.0); Hematocrit 45.6 % (41.0-53.0); Hemoglobin 15.5 g/dL (13.5-17.5); Lymphocytes # (auto) 2.8 10 ^3/uL (0.4-5.4); Lymphocytes % (auto) 31.6 % (10.0-50.0); Mean Corpuscular Hemoglobin 30.5 pg (28.0-32.0); Mean Corpuscular Hgb Conc. 34.1 g/dL (32.0-36.0); Mean Corpuscular Volume 89.7 fL (80.0-100.0); Monocytes # (auto) 0.7 10 ^3/uL (0-1.3); Monocytes % (auto) 7.6 % (0.0-12.0); Neutrophils # (auto) 4.8 10 ^3/uL (1.6-8.6); Neutrophils % (auto) 54.2 % (37.0-80.0); Nucleated Red Blood Cells % 0.2 %; Red Blood Cells 5.08 10^6/uL (4.5-5.90); Red Cell Distribution Width 14.6 % (11.8-14.3); White Blood Cell 8.9 10^3/uL (4.4-10.8)
[2021-02-09 04:18] LABS: Albumin 3.2 g/dL (3.4-5.0); Anion Gap 6 (5-15); Blood Urea Nitrogen 18 mg/dL (7-18); Carbon Dioxide 26 mmol/L (21-32); Chloride 106 mmol/L (98-107); Glucose 176 mg/dL (74-106); Potassium 4.1 mmol/L (3.5-5.1); Sodium 138 mmol/L (136-145)
[2021-02-09 04:20] LABS: Alanine Aminotransferase 43 U/L (16-61); Aspartate Aminotransferase 27 U/L (15-37); BUN/Creatinine Ratio 14.9; Blood Alcohol < 3.0 mg/dL (0-5); GFR African American 75 mL/min; GFR Non-African American 62 mL/min; Salicylate < 1.7 mg/dL (2.8-20.0)
[2021-02-09 04:22] LABS: Alkaline Phosphatase 110 U/L (45-117); Bilirubin, Total 0.4 mg/dL (0.2-1.0); Total Protein 7.1 g/dL (6.4-8.2)
[2021-02-09 04:25] LABS: Acetaminophen < 2.0 ug/mL (10-30)
[2021-02-09 07:40] VITALS: BP 154/76
[2021-02-09] MEDS ORDERED: traZODone HCL 50 MG TAB PO PRN ×2 (08:30)
[2021-02-09] MEDS ORDERED: hydrOXYzine 25 MG TAB or CAP PO PRN ×2 (08:30)
[2021-02-09] MEDS ORDERED: SERTRALINE HCL 50 MG TAB PO ONE ×2 (08:30)
== END 2021-02-09 14:52 | disposition still patient (30) ==
LOC: ER 03:06
DX: R45.851 Suicidal ideations (principal); I50.9 Heart failure, unspecified; J44.9 Chronic obstructive pulmonary disease, unspecified; K21.9 Gastro-esophageal reflux disease without esophagitis; E78.5 Hyperlipidemia, unspecified; I25.2 Old myocardial infarction; I25.10 Atherosclerotic heart disease of native coronary artery without angina pectoris; Z90.49 Acquired absence of other specified parts of digestive tract; Z90.89 Acquired absence of other organs
CPT/HCPCS: 36415; 80053; 80320; 80329; 85025; 93005

== ENCOUNTER 2021-02-20 15:02 | Emergency (ER) | payer OTHER ==
[~2021-02-20] VITALS: Ht 172.7 cm; Wt 104.3 kg
[2021-02-20 15:03] VITALS: BP 138/73
[2021-02-20] MEDS ORDERED: methylPREDNISolone SOD SUCC 125 MG/2 ML VL IM ONE (15:30)
[2021-02-20 15:56] LABS: Basophils # (auto) 0.1 10 ^3/uL (0-0.2); Basophils % (auto) 0.8 % (0.0-2.0); Eosinophils # (auto) 0.6 10 ^3/uL (0-0.8); Eosinophils % (auto) 6.8 % (0.0-7.0); Hematocrit 44.3 % (41.0-53.0); Hemoglobin 14.9 g/dL (13.5-17.5); Lymphocytes # (auto) 1.9 10 ^3/uL (0.4-5.4); Lymphocytes % (auto) 22.5 % (10.0-50.0); Mean Corpuscular Hemoglobin 30.3 pg (28.0-32.0); Mean Corpuscular Hgb Conc. 33.7 g/dL (32.0-36.0); Mean Corpuscular Volume 89.9 fL (80.0-100.0); Monocytes # (auto) 0.6 10 ^3/uL (0-1.3); Neutrophils # (auto) 5.3 10 ^3/uL (1.6-8.6); Neutrophils % (auto) 62.9 % (37.0-80.0); Nucleated Red Blood Cells % 0.1 %; Red Blood Cells 4.93 10^6/uL (4.5-5.90); Red Cell Distribution Width 14.2 % (11.8-14.3); White Blood Cell 8.4 10^3/uL (4.4-10.8)
[2021-02-20 16:10] LABS: Albumin 3.1 g/dL (3.4-5.0); Anion Gap 6 (5-15); Blood Urea Nitrogen 14 mg/dL (7-18); Calcium 8.5 mg/dL (8.5-10.1); Carbon Dioxide 25 mmol/L (21-32); Chloride 105 mmol/L (98-107); Glucose 226 mg/dL (74-106); Potassium 4.1 mmol/L (3.5-5.1); Sodium 136 mmol/L (136-145)
[2021-02-20 16:13] LABS: Alanine Aminotransferase 51 U/L (16-61); Alkaline Phosphatase 116 U/L (45-117); Aspartate Aminotransferase 45 U/L (15-37); BUN/Creatinine Ratio 11.4; Bilirubin, Total 0.3 mg/dL (0.2-1.0); GFR African American 73 mL/min; GFR Non-African American 61 mL/min; Total Protein 6.7 g/dL (6.4-8.2)
[2021-02-20] MEDS ORDERED: HYDROcodone-ACET 5/325MG TAB PO ONE (17:15)
== END 2021-02-20 22:09 | disposition left against medical advice (07) ==
LOC: ER 15:02
DX: J44.1 Chronic obstructive pulmonary disease with (acute) exacerbation (principal); R07.89 Other chest pain; R73.9 Hyperglycemia, unspecified; I45.10 Unspecified right bundle-branch block; I25.2 Old myocardial infarction; I25.10 Atherosclerotic heart disease of native coronary artery without angina pectoris; I11.0 Hypertensive heart disease with heart failure; I50.9 Heart failure, unspecified; K21.9 Gastro-esophageal reflux disease without esophagitis; E78.5 Hyperlipidemia, unspecified; Z79.899 Other long term (current) drug therapy; Z90.89 Acquired absence of other organs; Z90.49 Acquired absence of other specified parts of digestive tract
CPT/HCPCS: 36415; 71250; 80053; 83880; 84484; 85025; 93005

== ENCOUNTER 2021-11-02 13:55 | Emergency (ER) | payer OTHER, MEDICAID ==
[~2021-11-02] VITALS: Ht 172.7 cm; Wt 93.0 kg
[2021-11-02 14:38] LABS: Basophils # (auto) 0.1 10 ^3/uL (0-0.2); Basophils % (auto) 0.7 % (0.0-2.0); Eosinophils # (auto) 0 10 ^3/uL (0-0.8); Eosinophils % (auto) 0.5 % (0.0-7.0); Hematocrit 30.6 % (41.0-53.0); Hemoglobin 10.5 g/dL (13.5-17.5); Lymphocytes # (auto) 2.3 10 ^3/uL (0.4-5.4); Lymphocytes % (auto) 23.1 % (10.0-50.0); Mean Corpuscular Hemoglobin 30.4 pg (28.0-32.0); Mean Corpuscular Hgb Conc. 34.3 g/dL (32.0-36.0); Mean Corpuscular Volume 88.7 fL (80.0-100.0); Monocytes # (auto) 0.8 10 ^3/uL (0-1.3); Monocytes % (auto) 8.3 % (0.0-12.0); Neutrophils # (auto) 6.7 10 ^3/uL (1.6-8.6); Neutrophils % (auto) 67.4 % (37.0-80.0); Nucleated Red Blood Cells % 0.3 %; Red Blood Cells 3.45 10^6/uL (4.5-5.90); Red Cell Distribution Width 14.4 % (11.8-14.3); White Blood Cell 9.9 10^3/uL (4.4-10.8)
[2021-11-02 14:53] LABS: BUN/Creatinine Ratio 30.3; Calcium 8.2 mg/dL (8.5-10.1); INR 1.04 (0.9-1.15); Partial Thromboplastin Time 24.2 sec (23.6-33.0)
[2021-11-02 14:55] LABS: Bilirubin, Total 0.4 mg/dL (0.2-1.0); Total Protein 6.3 g/dL (6.4-8.2)
[2021-11-02] MEDS ORDERED: SODIUM CHLORIDE 0.9% 1,000 ML IV ONE (16:00)
[2021-11-02] MEDS ORDERED: SODIUM CHLORIDE 0.9% 500 ML IVB ONE (16:00)
[2021-11-02 18:00] VITALS: BP 107/58
[2021-11-02] MEDS ORDERED: PANT40TA2 PO (18:05)
== END 2021-11-02 18:40 | disposition home or self-care (01) ==
LOC: ER 13:55
DX: K92.2 Gastrointestinal hemorrhage, unspecified (principal); R07.89 Other chest pain; E11.65 Type 2 diabetes mellitus with hyperglycemia; E11.21 Type 2 diabetes mellitus with diabetic nephropathy; E44.0 Moderate protein-calorie malnutrition; K40.20 Bilateral inguinal hernia, without obstruction or gangrene, not specified as recurrent; K46.9 Unspecified abdominal hernia without obstruction or gangrene; I71.4 Abdominal aortic aneurysm, without rupture; I11.0 Hypertensive heart disease with heart failure; I50.9 Heart failure, unspecified; E78.5 Hyperlipidemia, unspecified; N40.0 Benign prostatic hyperplasia without lower urinary tract symptoms; Z68.31 Body mass index [BMI] 31.0-31.9, adult; Z90.5 Acquired absence of kidney; Z90.49 Acquired absence of other specified parts of digestive tract; Z20.822 Contact with and (suspected) exposure to COVID-19
CPT/HCPCS: 36415; 71045; 74176; 80053; 83690; 83735; 83880; 84443; 84484; 85025; 85610; 85730; 87426; 93005; 96360; 99285; J7040

== ENCOUNTER 2021-12-21 20:09 | Emergency (ER) | payer OTHER, MEDICAID ==
[~2021-12-21] VITALS: Ht 172.7 cm; Wt 105.0 kg
[2021-12-21 21:29] VITALS: BP 138/72
[2021-12-21 22:36] LABS: Basophils # (auto) 0 10 ^3/uL (0-0.2); Basophils % (auto) 0.6 % (0.0-2.0); Eosinophils # (auto) 0.5 10 ^3/uL (0-0.8); Hemoglobin 10.8 g/dL (13.5-17.5); Lymphocytes # (auto) 2.2 10 ^3/uL (0.4-5.4); Mean Corpuscular Volume 79.2 fL (80.0-100.0); Monocytes # (auto) 0.7 10 ^3/uL (0-1.3); Red Blood Cells 4.35 10^6/uL (4.5-5.90); White Blood Cell 7.4 10^3/uL (4.4-10.8)
[2021-12-21 22:38] LABS: Eosinophils % (auto) 6.3 % (0.0-7.0); Hematocrit 34.4 % (41.0-53.0); Lymphocytes % (auto) 29.1 % (10.0-50.0); Mean Corpuscular Hemoglobin 24.7 pg (28.0-32.0); Mean Corpuscular Hgb Conc. 31.2 g/dL (32.0-36.0); Monocytes % (auto) 9.6 % (0.0-12.0); Neutrophils % (auto) 54.4 % (37.0-80.0); Red Cell Distribution Width 15.2 % (11.8-14.3)
[2021-12-21 22:53] LABS: Albumin 3.4 g/dL (3.4-5.0); Calcium 8.3 mg/dL (8.5-10.1); Potassium 4.1 mmol/L (3.5-5.1)
[2021-12-21 22:55] LABS: BUN/Creatinine Ratio 11.1; Bilirubin, Total 0.3 mg/dL (0.2-1.0)
== END 2021-12-22 04:57 | disposition left against medical advice (07) ==
LOC: ER 20:09
DX: R07.89 Other chest pain (principal); Z53.21 Procedure and treatment not carried out due to patient leaving prior to being seen by health care provider
CPT/HCPCS: 36415; 80053; 83880; 84484; 85025; 93005

== ENCOUNTER 2022-01-17 13:57 | Emergency (ER) | payer OTHER, MEDICAID ==
[~2022-01-17] VITALS: Ht 172.7 cm; Wt 102.4 kg
[2022-01-17] MEDS ORDERED: SODIUM CHLORIDE 0.9% 1,000 ML IV ONE (14:00)
[2022-01-17 14:48] LABS: Basophils # (auto) 0.1 10 ^3/uL (0-0.2); Eosinophils # (auto) 0.5 10 ^3/uL (0-0.8); Mean Corpuscular Hgb Conc. 31.3 g/dL (32.0-36.0); Monocytes # (auto) 1.1 10 ^3/uL (0-1.3)
[2022-01-17 14:51] LABS: Basophils % (auto) 0.7 % (0.0-2.0); Eosinophils % (auto) 3.9 % (0.0-7.0); Hemoglobin 11.6 g/dL (13.5-17.5); Lymphocytes # (auto) 2.1 10 ^3/uL (0.4-5.4); Lymphocytes % (auto) 15.8 % (10.0-50.0); Mean Corpuscular Hemoglobin 23.5 pg (28.0-32.0); Monocytes % (auto) 8.5 % (0.0-12.0); Neutrophils # (auto) 9.4 10 ^3/uL (1.6-8.6); Neutrophils % (auto) 71.1 % (37.0-80.0); Red Blood Cells 4.93 10^6/uL (4.5-5.90); Red Cell Distribution Width 15.9 % (11.8-14.3); White Blood Cell 13.2 10^3/uL (4.4-10.8)
[2022-01-17 15:15] LABS: Urine Bacteria NONE SEEN /hpf (None Seen); Urine Blood Negative /uL (Negative); Urine Mucus FEW (None Seen); Urine Specific Gravity 1.023 (1.001-1.035); Urine WBC 26 /hpf (0 - 3)
[2022-01-17 15:37] LABS: Albumin 3.6 g/dL (3.4-5.0); Calcium 8.8 mg/dL (8.5-10.1)
[2022-01-17 15:54] LABS: BUN/Creatinine Ratio 8.5; Bilirubin, Total 0.6 mg/dL (0.2-1.0)
[2022-01-17] MEDS ORDERED: cefTRIAXone 1GM/50ML D5W 50 ML IV ONE (16:30)
[2022-01-17] MEDS ORDERED: metroNIDAZOLE 500MG/100ML 100 ML IV ONE (16:30)
[2022-01-17 16:54] VITALS: BP 124/77
[2022-01-17] MEDS ORDERED: METR500T PO (17:11)
[2022-01-17] MEDS ORDERED: CEPH-322 PO (17:11)
== END 2022-01-17 17:24 | disposition home or self-care (01) ==
LOC: ER 13:57
DX: K57.32 Diverticulitis of large intestine without perforation or abscess without bleeding (principal); N39.0 Urinary tract infection, site not specified; I25.10 Atherosclerotic heart disease of native coronary artery without angina pectoris; I11.0 Hypertensive heart disease with heart failure; I50.9 Heart failure, unspecified; I25.2 Old myocardial infarction; E78.5 Hyperlipidemia, unspecified; E11.9 Type 2 diabetes mellitus without complications; J44.9 Chronic obstructive pulmonary disease, unspecified; K21.9 Gastro-esophageal reflux disease without esophagitis; Z90.49 Acquired absence of other specified parts of digestive tract; Z90.89 Acquired absence of other organs; Z79.899 Other long term (current) drug therapy; Z20.822 Contact with and (suspected) exposure to COVID-19
CPT/HCPCS: 36415; 71045; 74176; 80053; 81001; 83605; 83690; 84484; 85025; 87040; 87426; 93005; 96361; 96365; 96368; 99285; J0696; J3490; J7030

== ENCOUNTER 2022-03-25 12:22 | Emergency (ER) | payer OTHER, MEDICAID ==
[~2022-03-25] VITALS: Ht 172.7 cm; Wt 104.0 kg
[~2022-03-25 12:22] MED LIST changes: +CEPH-322 PO
[2022-03-25 12:40] VITALS: BP 141/82
[2022-03-25 13:42] LABS: Basophils # (auto) 0.1 10 ^3/uL (0-0.2); Eosinophils # (auto) 0.5 10 ^3/uL (0-0.8); Lymphocytes # (auto) 1.6 10 ^3/uL (0.4-5.4); White Blood Cell 10.6 10^3/uL (4.4-10.8)
[2022-03-25 13:44] LABS: Basophils % (auto) 0.7 % (0.0-2.0); Eosinophils % (auto) 4.3 % (0.0-7.0); Hemoglobin 11.8 g/dL (13.5-17.5); Lymphocytes % (auto) 15.5 % (10.0-50.0); Mean Corpuscular Hemoglobin 23.3 pg (28.0-32.0); Mean Corpuscular Hgb Conc. 31.9 g/dL (32.0-36.0); Mean Corpuscular Volume 72.9 fL (80.0-100.0); Monocytes # (auto) 0.9 10 ^3/uL (0-1.3); Monocytes % (auto) 8.1 % (0.0-12.0); Neutrophils # (auto) 7.6 10 ^3/uL (1.6-8.6); Neutrophils % (auto) 71.4 % (37.0-80.0); Red Blood Cells 5.08 10^6/uL (4.5-5.90); Red Cell Distribution Width 18.8 % (11.8-14.3)
[2022-03-25 13:58] LABS: Albumin 3.4 g/dL (3.4-5.0); Calcium 8.3 mg/dL (8.5-10.1); Potassium 4.4 mmol/L (3.5-5.1)
[2022-03-25 14:02] LABS: BUN/Creatinine Ratio 8.1; Bilirubin, Total 0.6 mg/dL (0.2-1.0); Total Protein 7.6 g/dL (6.4-8.2)
== END 2022-03-25 16:54 | disposition left against medical advice (07) ==
LOC: ER 12:22
DX: S09.90XA Unspecified injury of head, initial encounter (principal); I25.10 Atherosclerotic heart disease of native coronary artery without angina pectoris; I50.9 Heart failure, unspecified; I25.2 Old myocardial infarction; J44.9 Chronic obstructive pulmonary disease, unspecified; E11.9 Type 2 diabetes mellitus without complications; E78.5 Hyperlipidemia, unspecified; K21.9 Gastro-esophageal reflux disease without esophagitis; Z86.2 Personal history of diseases of the blood and blood-forming organs and certain disorders involving the immune mechanism; Z90.49 Acquired absence of other specified parts of digestive tract; Z90.89 Acquired absence of other organs; X58.XXXA Exposure to other specified factors, initial encounter; Y93.89 Activity, other specified; Y92.89 Other specified places as the place of occurrence of the external cause; Y99.8 Other external cause status
CPT/HCPCS: 36415; 70450; 71045; 80053; 84484; 85025; 93005

== ENCOUNTER 2023-03-07 18:17 | Emergency (ER) | payer OTHER, MEDICAID ==
[~2023-03-07] VITALS: Ht 172.7 cm; Wt 104.5 kg
[~2023-03-07 18:17] MED LIST changes: -CEPH-322 PO; +CEPH250C PO; -FERR-20 PO; +FERR325T24 PO
[2023-03-07 18:25] VITALS: BP 143/77; RESP 20; O2SAT 95
[2023-03-07 18:44] LABS: Basophils # (auto) 0 10 ^3/uL (0-0.2); Basophils % (auto) 0.6 % (0.0-2.0); Eosinophils # (auto) 0.5 10 ^3/uL (0-0.8); Eosinophils % (auto) 5.5 % (0.0-7.0); Hemoglobin 13.7 g/dL (13.5-17.5); Lymphocytes # (auto) 2.5 10 ^3/uL (0.4-5.4); Lymphocytes % (auto) 29.3 % (10.0-50.0); Mean Corpuscular Hemoglobin 28.2 pg (28.0-32.0); Mean Corpuscular Hgb Conc. 33.4 g/dL (32.0-36.0); Mean Corpuscular Volume 84.5 fL (80.0-100.0); Monocytes # (auto) 0.7 10 ^3/uL (0-1.3); Monocytes % (auto) 7.7 % (0.0-12.0); Neutrophils # (auto) 4.8 10 ^3/uL (1.6-8.6); Neutrophils % (auto) 56.9 % (37.0-80.0); Red Blood Cells 4.85 10^6/uL (4.5-5.90); Red Cell Distribution Width 15.3 % (11.8-14.3); White Blood Cell 8.4 10^3/uL (4.4-10.8)
[2023-03-07 19:01] LABS: INR 1.05 (0.9-1.15); Partial Thromboplastin Time 28.2 SEC (24.5-34.5)
[2023-03-07 19:05] LABS: Alanine Aminotransferase 12 U/L (7-40); Albumin 4.1 g/dL (3.2-4.8); Alkaline Phosphatase 113 U/L (46-116); Anion Gap 8 (5-15); Aspartate Aminotransferase 8 U/L (13-40); BUN/Creatinine Ratio 9.3 (10.0-20.0); Blood Urea Nitrogen 11 mg/dL (9-23); Calcium 8.6 mg/dL (8.5-10.1); Carbon Dioxide 24 mmol/L (20-30); Chloride 106 mmol/L (98-107); Glucose 192 mg/dL (74-106); Potassium 4.2 mmol/L (3.5-5.1); Sodium 138 mmol/L (136-145)
[2023-03-07 19:06] LABS: Bilirubin, Total 0.3 mg/dL (0.2-1.0); Total Protein 6.8 g/dL (5.7-8.2)
[2023-03-07] MEDS ORDERED: ASPirin 325 MG TAB PO ONE (20:30)
[2023-03-07] MEDS ORDERED: NITROGLYCERIN 0.4 MG SL TAB SL ONE (20:30)
[2023-03-07 21:36] VITALS: PULSE 76
[2023-03-07] MEDS ORDERED: ONDANSETRON HCL 4 MG/2 ML VIAL IV PRN (23:00)
[2023-03-07] MEDS ORDERED: NITROGLYCERIN 0.4 MG SL TAB SL PRN (23:00)
== END 2023-03-08 11:33 | disposition left against medical advice (07) ==
LOC: ER 18:17
DX: R07.89 Other chest pain (principal); I25.10 Atherosclerotic heart disease of native coronary artery without angina pectoris; I50.9 Heart failure, unspecified; J44.9 Chronic obstructive pulmonary disease, unspecified; E11.9 Type 2 diabetes mellitus without complications; E78.5 Hyperlipidemia, unspecified; I25.2 Old myocardial infarction; Z85.9 Personal history of malignant neoplasm, unspecified; Z86.2 Personal history of diseases of the blood and blood-forming organs and certain disorders involving the immune mechanism; Z87.442 Personal history of urinary calculi; Z98.890 Other specified postprocedural states; Z79.899 Other long term (current) drug therapy
CPT/HCPCS: 36415; 71046; 80053; 84484; 85025; 85610; 85730; 93005

== ENCOUNTER 2023-07-12 16:56 | Emergency (ER) | payer OTHER ==
[~2023-07-12] VITALS: Ht 172.7 cm; Wt 95.6 kg
[2023-07-12 19:24] VITALS: BP 116/71; PULSE 93; RESP 18; TEMP 98.7; O2SAT 95
[2023-07-12] MEDS ORDERED: HYDR-4902 PO (19:36)
[2023-07-12] MEDS: HYDROcodone-ACET 5/325MG TAB PO ONE (19:54)
== END 2023-07-12 20:02 | disposition home or self-care (01) ==
LOC: ER 16:56
DX: M25.552 Pain in left hip (principal); M16.12 Unilateral primary osteoarthritis, left hip; I25.10 Atherosclerotic heart disease of native coronary artery without angina pectoris; I50.9 Heart failure, unspecified; I25.2 Old myocardial infarction; J44.9 Chronic obstructive pulmonary disease, unspecified; E11.9 Type 2 diabetes mellitus without complications; E78.5 Hyperlipidemia, unspecified; K21.9 Gastro-esophageal reflux disease without esophagitis; Z86.2 Personal history of diseases of the blood and blood-forming organs and certain disorders involving the immune mechanism; Z90.49 Acquired absence of other specified parts of digestive tract; Z90.89 Acquired absence of other organs; Z79.899 Other long term (current) drug therapy
CPT/HCPCS: 72170

== ENCOUNTER 2023-07-27 03:31 | Inpatient (IN) | payer OTHER ==
[~2023-07-27] VITALS: Ht 162.6 cm; Wt 94.7 kg
[2023-07-27] VITALS (11 sets, daily range): BP systolic 103–129; BP diastolic 60–76; PULSE 56–63; RESP 13–25; TEMP 36.7; O2SAT 96–98
[~2023-07-27 03:31] MED LIST changes: +HYDR-4902 PO
[2023-07-27 04:01] LABS: Basophils # (auto) 0 10 ^3/uL (0-0.2); Basophils % (auto) 0.5 % (0.0-2.0); Eosinophils # (auto) 0.6 10 ^3/uL (0-0.8); Eosinophils % (auto) 6.8 % (0.0-7.0); Hematocrit 45.7 % (41.0-53.0); Hemoglobin 15.1 g/dL (13.5-17.5); Lymphocytes # (auto) 2.8 10 ^3/uL (0.4-5.4); Mean Corpuscular Volume 87.9 fL (80.0-100.0); Monocytes # (auto) 0.6 10 ^3/uL (0-1.3); Neutrophils # (auto) 4.3 10 ^3/uL (1.6-8.6); Neutrophils % (auto) 51.7 % (37.0-80.0); Nucleated Red Blood Cells % 0.1 %; Red Cell Distribution Width 14.7 % (11.8-14.3); White Blood Cell 8.3 10^3/uL (4.4-10.8)
[2023-07-27 04:15] LABS: INR 1.09 (0.9-1.15); Partial Thromboplastin Time 28.7 SEC (24.5-34.5); Prothrombin Time 11.4 sec (9.3-11.8)
[2023-07-27 04:15] LABS: Urine Bacteria NONE SEEN /hpf (None Seen); Urine Blood Negative /uL (Negative); Urine Clarity Clear (Clear); Urine Color Yellow (Yellow); Urine Mucus FEW (None Seen); Urine Protein, UAD Negative (Negative); Urine Urobilinogen Normal (Negative); Urine WBC 80 /hpf (0 - 3); Urine WBC Clumps PRESENT /hpf (None Seen); Urine pH 5.5 (5.0-8.0)
[2023-07-27 04:16] LABS: Alanine Aminotransferase 11 U/L (7-40); Albumin 4.2 g/dL (3.2-4.8); Alkaline Phosphatase 115 U/L (46-116); Anion Gap 6 (5-15); Aspartate Aminotransferase 12 U/L (13-40); BUN/Creatinine Ratio 10.2 (10.0-20.0); Bilirubin, Total 0.3 mg/dL (0.2-1.0); Blood Urea Nitrogen 13 mg/dL (9-23); Calcium 9.1 mg/dL (8.7-10.4); Carbon Dioxide 28 mmol/L (20-30); Chloride 107 mmol/L (98-107); Glucose 145 mg/dL (74-106); Magnesium 2.1 mg/dL (1.6-2.6); Potassium 4.5 mmol/L (3.5-5.1); Sodium 141 mmol/L (136-145)
[2023-07-27 04:17] LABS: Total Protein 7.2 g/dL (5.7-8.2)
[2023-07-27] MEDS ORDERED: ONDANSETRON HCL 4 MG/2 ML VIAL IV PRN (06:15)
[2023-07-27] MEDS ORDERED: ALBUTEROL SULF 2.5 MG/0.5ML(0.5%) NEB SOLN NEB PRN (06:15)
[2023-07-27] MEDS ORDERED: NITROGLYCERIN 0.4 MG SL TAB SL PRN (06:15)
[2023-07-27] MEDS ORDERED: DEXTROSE (50%) 50ML SYRG IV PRN (06:15)
[2023-07-27] MEDS ORDERED: DOCUSATE SOD 100 MG CAP PO PRN (06:15)
[2023-07-27] MEDS ORDERED: ACETAMINOPHEN 325 MG TAB PO PRN (06:15)
[2023-07-27 06:38] LABS: Basophils # (auto) 0.1 10 ^3/uL (0-0.2); Basophils % (auto) 0.7 % (0.0-2.0); Eosinophils # (auto) 0.6 10 ^3/uL (0-0.8); Eosinophils % (auto) 6.8 % (0.0-7.0); Hematocrit 43.2 % (41.0-53.0); Hemoglobin 14.2 g/dL (13.5-17.5); Lymphocytes # (auto) 2.9 10 ^3/uL (0.4-5.4); Lymphocytes % (auto) 33.8 % (10.0-50.0); Mean Corpuscular Hemoglobin 28.7 pg (28.0-32.0); Mean Corpuscular Hgb Conc. 32.8 g/dL (32.0-36.0); Mean Corpuscular Volume 87.5 fL (80.0-100.0); Monocytes # (auto) 0.6 10 ^3/uL (0-1.3); Monocytes % (auto) 7.4 % (0.0-12.0); Neutrophils # (auto) 4.4 10 ^3/uL (1.6-8.6); Neutrophils % (auto) 51.3 % (37.0-80.0); Nucleated Red Blood Cells % 0.1 %; Red Blood Cells 4.94 10^6/uL (4.5-5.90); Red Cell Distribution Width 14.5 % (11.8-14.3); White Blood Cell 8.6 10^3/uL (4.4-10.8)
[2023-07-27 06:58] LABS: Alanine Aminotransferase 12 U/L (7-40); Alkaline Phosphatase 113 U/L (46-116); Anion Gap 3 (5-15); Aspartate Aminotransferase 13 U/L (13-40); BUN/Creatinine Ratio 12.9 (10.0-20.0); Bilirubin, Total 0.3 mg/dL (0.2-1.0); Blood Urea Nitrogen 18 mg/dL (9-23); Calcium 9.3 mg/dL (8.5-10.1); Carbon Dioxide 30 mmol/L (20-30); Chloride 107 mmol/L (98-107); Glucose 154 mg/dL (74-106); Potassium 5.5 mmol/L (3.5-5.1); Sodium 140 mmol/L (136-145); Total Protein 6.6 g/dL (5.7-8.2)
[2023-07-27] MEDS: InsuLIN REG 1unit/0.01ml Soln (100units/ml) SC SCH ×2 (07:00→20:50)
[2023-07-27] MEDS: ACCU-CHEK COMFORT CURVE STRIP VI SCH (07:08)
[2023-07-27] MEDS: cefTRIAXone 1GM/50ML D5W 50 ML IV ONE (07:12)
[2023-07-27] MEDS: DOXYCYCLINE 100MG/250ML 250 ML IV SCH (08:00)
[2023-07-27] MEDS: FAMOTIDINE (10MG/ML) 2ML VL IV SCH (10:00)
[2023-07-27] MEDS: ASPirin 81 mg TAB PO SCH (11:04)
[2023-07-27] MEDS: SODIUM CHLOR 0.9% PF (SALINE LOCK) 10ML VIAL/SYR IV SCH (11:09)
[2023-07-27] MEDS: HYDROcodone-ACET 5/325MG TAB PO PRN (17:31)
[2023-07-27] MEDS: ATORVASTATIN 20 MG TAB PO SCH (20:40)
[2023-07-28] VITALS (9 sets, daily range): BP systolic 111–126; BP diastolic 63–71; PULSE 56–96; RESP 17–18; TEMP 36.8; O2SAT 94–98
[2023-07-28] MEDS: MORPHINE SULFATE INJ 2 MG/ml SYRG IV PRN (01:17)
[2023-07-28 05:26] LABS: Basophils # (auto) 0.1 10 ^3/uL (0-0.2); Basophils % (auto) 0.6 % (0.0-2.0); Eosinophils # (auto) 0.6 10 ^3/uL (0-0.8); Eosinophils % (auto) 6.6 % (0.0-7.0); Hematocrit 45.1 % (41.0-53.0); Hemoglobin 14.9 g/dL (13.5-17.5); Lymphocytes # (auto) 2.9 10 ^3/uL (0.4-5.4); Lymphocytes % (auto) 31.8 % (10.0-50.0); Mean Corpuscular Hemoglobin 29.3 pg (28.0-32.0); Mean Corpuscular Volume 88.9 fL (80.0-100.0); Monocytes # (auto) 0.7 10 ^3/uL (0-1.3); Monocytes % (auto) 7.6 % (0.0-12.0); Neutrophils # (auto) 4.8 10 ^3/uL (1.6-8.6); Neutrophils % (auto) 53.4 % (37.0-80.0); Nucleated Red Blood Cells % 0.2 %; Red Blood Cells 5.07 10^6/uL (4.5-5.90); Red Cell Distribution Width 14.9 % (11.8-14.3)
[2023-07-28] MEDS: cefTRIAXone 1GM/50ML D5W 50 ML IV SCH (08:24)
[2023-07-28 09:24] LABS: Alanine Aminotransferase 10 U/L (7-40); Alkaline Phosphatase 99 U/L (46-116); Anion Gap 5 (5-15); Aspartate Aminotransferase 11 U/L (13-40); BUN/Creatinine Ratio 11.9 (10.0-20.0); Blood Urea Nitrogen 14 mg/dL (9-23); Carbon Dioxide 27 mmol/L (20-30); Chloride 105 mmol/L (98-107); Glucose 119 mg/dL (74-106); Potassium 4.8 mmol/L (3.5-5.1); Sodium 137 mmol/L (136-145)
[2023-07-28 09:25] LABS: Albumin 3.8 g/dL (3.2-4.8)
[2023-07-28 09:26] LABS: Bilirubin, Total 0.5 mg/dL (0.2-1.0); Total Protein 6.7 g/dL (5.7-8.2)
[2023-07-28] MEDS: CLOPIDOGREL BISULFATE 75 MG TAB PO ONE (17:10)
[2023-07-28 18:44] LABS: COVID19 ANTIGEN SOFIA FIA NEGATIVE (NEGATIVE); Rapid Influenza A Negative (Negative); Rapid Influenza B Negative (Negative)
[2023-07-29] VITALS (9 sets, daily range): BP systolic 109–152; BP diastolic 55–90; PULSE 59–73; RESP 16–20; TEMP 97.7–98; O2SAT 91–98
[2023-07-29 09:54] LABS: Triglycerides 147 mg/dL (< 150)
[2023-07-29 09:55] LABS: LDL Cholesterol 93 mg/dL (< 100)
[2023-07-29 09:56] LABS: Cholesterol 136 mg/dL (< 200); HDL Cholesterol 32 mg/dL (40-59)
[2023-07-29] MEDS: CLOPIDOGREL BISULFATE 75 MG TAB PO SCH (10:11)
[2023-07-29] MEDS: SOD CHL 0.45% 1,000 ML IV SCH (11:07)
[2023-07-29] MEDS: ATORVASTATIN 20 MG TAB PO SCH (22:23)
[2023-07-30] VITALS (15 sets, daily range): BP systolic 89–118; BP diastolic 58–71; PULSE 55–66; RESP 10–20; TEMP 97–98.4; O2SAT 93–98
[2023-07-30 08:44] LABS: Basophils # (auto) 0 10 ^3/uL (0-0.2); Basophils % (auto) 0.5 % (0.0-2.0); Eosinophils # (auto) 0.6 10 ^3/uL (0-0.8); Eosinophils % (auto) 7.3 % (0.0-7.0); Hematocrit 44.1 % (41.0-53.0); Hemoglobin 14.6 g/dL (13.5-17.5); Lymphocytes # (auto) 2.6 10 ^3/uL (0.4-5.4); Lymphocytes % (auto) 30.4 % (10.0-50.0); Mean Corpuscular Hemoglobin 28.8 pg (28.0-32.0); Mean Corpuscular Hgb Conc. 33.1 g/dL (32.0-36.0); Monocytes # (auto) 0.7 10 ^3/uL (0-1.3); Monocytes % (auto) 7.8 % (0.0-12.0); Neutrophils # (auto) 4.6 10 ^3/uL (1.6-8.6); Nucleated Red Blood Cells % 0.1 %; Red Blood Cells 5.07 10^6/uL (4.5-5.90); Red Cell Distribution Width 14.6 % (11.8-14.3); White Blood Cell 8.4 10^3/uL (4.4-10.8)
[2023-07-30 08:49] LABS: Chloride 106 mmol/L (98-107); Potassium 4.8 mmol/L (3.5-5.1); Sodium 137 mmol/L (136-145)
[2023-07-30 08:50] LABS: Anion Gap 5 (5-15); Calcium 9.2 mg/dL (8.5-10.1); Carbon Dioxide 26 mmol/L (20-30)
[2023-07-30 08:55] LABS: BUN/Creatinine Ratio 13.6 (10.0-20.0); Blood Urea Nitrogen 15 mg/dL (9-23); Glucose 142 mg/dL (74-106)
[2023-07-30] MEDS: METOPROLOL TARTRATE 25 MG TAB PO SCH (11:46)
[2023-07-30] MEDS: LIDOCAINE 2%HCL (LOCAL ANESTH.) INJ 20ML MDV ONE (13:28)
[2023-07-30] MEDS: IODIXANOL 320MG/ML 100ML BTL IV ONE ×2 (13:28→13:45)
[2023-07-30] MEDS: fentaNYL CITRATE 100 MCG/2 ML VL ONE (13:40)
[2023-07-30] MEDS: MIDAZOLAM HCL 2MG/2ML 2ml VIAL (1mg/ml) ONE (13:40)
[2023-07-30] MEDS: ANGIOMAX 250 MG VIAL IV ONE (13:40)
[2023-07-30] MEDS: HEPARIN SODIUM (PORCINE) 5000 UNITS/ML 1ML VIAL ONE (13:40)
[2023-07-30] MEDS: VERAPAMIL 2.5MG/ML INJ 2ML VIAL IV ONE (13:40)
[2023-07-30] MEDS: SODIUM CHL 0.9% 0 ML ONE (13:41)
[2023-07-30] MEDS ORDERED: HEPARIN DRIP/D5W 100UNITS/ML 250 ML IV SCH ×3 (21:15→22:00)
[2023-07-30 21:55] LABS: Basophils # (auto) 0.1 10 ^3/uL (0-0.2); Basophils % (auto) 0.6 % (0.0-2.0); Eosinophils # (auto) 0.6 10 ^3/uL (0-0.8); Eosinophils % (auto) 7.1 % (0.0-7.0); Hematocrit 44.8 % (41.0-53.0); Hemoglobin 14.9 g/dL (13.5-17.5); Lymphocytes # (auto) 2.5 10 ^3/uL (0.4-5.4); Lymphocytes % (auto) 28.4 % (10.0-50.0); Mean Corpuscular Hemoglobin 28.7 pg (28.0-32.0); Mean Corpuscular Hgb Conc. 33.3 g/dL (32.0-36.0); Mean Corpuscular Volume 86.2 fL (80.0-100.0); Monocytes # (auto) 0.8 10 ^3/uL (0-1.3); Monocytes % (auto) 9.5 % (0.0-12.0); Neutrophils # (auto) 4.8 10 ^3/uL (1.6-8.6); Neutrophils % (auto) 54.4 % (37.0-80.0); Nucleated Red Blood Cells % 0.2 %; Red Blood Cells 5.19 10^6/uL (4.5-5.90); Red Cell Distribution Width 14.4 % (11.8-14.3); White Blood Cell 8.7 10^3/uL (4.4-10.8)
[2023-07-30 22:16] LABS: INR 1.11 (0.9-1.15); Partial Thromboplastin Time 29.1 SEC (24.5-34.5); Prothrombin Time 11.6 sec (9.3-11.8)
[2023-07-30] MEDS: HEPARIN DRIP/D5W 100UNITS/ML 250 ML IV SCH (23:12)
[2023-07-31] VITALS (9 sets, daily range): BP systolic 111–139; BP diastolic 67–85; PULSE 56–66; RESP 16–18; TEMP 97.6–97.8; O2SAT 93–98
[2023-07-31 06:09] LABS: Basophils # (auto) 0 10 ^3/uL (0-0.2); Basophils % (auto) 0.4 % (0.0-2.0); Eosinophils # (auto) 0.6 10 ^3/uL (0-0.8); Eosinophils % (auto) 6.6 % (0.0-7.0); Hematocrit 45.3 % (41.0-53.0); Hemoglobin 15.2 g/dL (13.5-17.5); Lymphocytes % (auto) 31.2 % (10.0-50.0); Mean Corpuscular Hemoglobin 29.1 pg (28.0-32.0); Mean Corpuscular Hgb Conc. 33.5 g/dL (32.0-36.0); Mean Corpuscular Volume 86.7 fL (80.0-100.0); Monocytes # (auto) 0.7 10 ^3/uL (0-1.3); Monocytes % (auto) 7.7 % (0.0-12.0); Neutrophils # (auto) 5.1 10 ^3/uL (1.6-8.6); Neutrophils % (auto) 54.1 % (37.0-80.0); Nucleated Red Blood Cells % 0.1 %; Red Blood Cells 5.22 10^6/uL (4.5-5.90); Red Cell Distribution Width 14.3 % (11.8-14.3); White Blood Cell 9.5 10^3/uL (4.4-10.8)
[2023-07-31 06:27] LABS: Alanine Aminotransferase 12 U/L (7-40); Albumin 4.3 g/dL (3.2-4.8); Alkaline Phosphatase 118 U/L (46-116); Anion Gap 6 (5-15); Aspartate Aminotransferase 16 U/L (13-40); BUN/Creatinine Ratio 11.6 (10.0-20.0); Bilirubin, Total 0.7 mg/dL (0.2-1.0); Blood Urea Nitrogen 13 mg/dL (9-23); Calcium 9.4 mg/dL (8.5-10.1); Carbon Dioxide 25 mmol/L (20-30); Chloride 106 mmol/L (98-107); Glucose 120 mg/dL (74-106); Potassium 4.4 mmol/L (3.5-5.1); Sodium 137 mmol/L (136-145)
[2023-07-31] MEDS: ASPirin 81 mg TAB PO SCH (10:09)
[2023-07-31 14:20] LABS: INR 1.14 (0.9-1.15); Partial Thromboplastin Time 43.5 SEC (24.5-34.5); Prothrombin Time 11.9 sec (9.3-11.8)
[2023-07-31] MEDS: HEPARIN DRIP/D5W 100UNITS/ML 250 ML IV SCH (14:45)
[2023-07-31] MEDS: FAMOTIDINE 20 MG TAB PO SCH (14:57)
[2023-07-31 21:14] LABS: INR 1.16 (0.9-1.15); Partial Thromboplastin Time 58.1 SEC (24.5-34.5); Prothrombin Time 12.1 sec (9.3-11.8)
[2023-08-01] VITALS (10 sets, daily range): BP systolic 106–125; BP diastolic 61–72; PULSE 56–59; RESP 16–20; TEMP 97–98; O2SAT 94–98
[2023-08-01 02:43] LABS: INR 1.19 (0.9-1.15); Partial Thromboplastin Time 68.3 SEC (24.5-34.5); Prothrombin Time 12.4 sec (9.3-11.8)
[2023-08-01 08:42] LABS: INR 1.19 (0.9-1.15); Prothrombin Time 12.4 sec (9.3-11.8)
[2023-08-01] MEDS: HEPARIN DRIP/D5W 100UNITS/ML 250 ML IV SCH ×2 (09:12→23:32)
[2023-08-01 15:46] LABS: INR 1.17 (0.9-1.15); Partial Thromboplastin Time 58.6 SEC (24.5-34.5); Prothrombin Time 12.2 sec (9.3-11.8)
[2023-08-01] MEDS: DOXYCYCLINE 100 MG TAB/CAP PO SCH (18:12)
[2023-08-01] MEDS: MELATONIN 5 MG TAB PO ONE (21:47)
[2023-08-01 22:09] LABS: INR 1.17 (0.9-1.15); Partial Thromboplastin Time 45.8 SEC (24.5-34.5); Prothrombin Time 12.2 sec (9.3-11.8)
[2023-08-02] VITALS (10 sets, daily range): BP systolic 111–129; BP diastolic 60–72; PULSE 50–79; RESP 16–19; TEMP 97.3–97.6; O2SAT 93–99
[2023-08-02 06:38] LABS: INR 1.16 (0.9-1.15); Prothrombin Time 12.1 sec (9.3-11.8)
[2023-08-02 06:58] LABS: Partial Thromboplastin Time 72.8 SEC (24.5-34.5)
[2023-08-02 12:23] LABS: INR 1.16 (0.9-1.15); Partial Thromboplastin Time 67.5 SEC (24.5-34.5); Prothrombin Time 12.1 sec (9.3-11.8)
[2023-08-02 19:08] LABS: INR 1.17 (0.9-1.15); Partial Thromboplastin Time 39.2 SEC (24.5-34.5); Prothrombin Time 12.2 sec (9.3-11.8)
[2023-08-02] MEDS: HEPARIN DRIP/D5W 100UNITS/ML 250 ML IV SCH (19:34)
[2023-08-03 02:15] VITALS: PULSE 61; RESP 18; O2SAT 97
[2023-08-03 02:17] LABS: INR 1.19 (0.9-1.15); Prothrombin Time 12.4 sec (9.3-11.8)
[2023-08-03 02:37] LABS: Partial Thromboplastin Time 79.4 SEC (24.5-34.5)
[2023-08-03] MEDS: HEPARIN DRIP/D5W 100UNITS/ML 250 ML IV SCH (03:11)
[2023-08-03 05:00] VITALS: BP 120/63; PULSE 58; RESP 17; TEMP 98; O2SAT 94
[2023-08-03 08:15] VITALS: PULSE 56
[2023-08-03 09:00] VITALS: BP 125/71; PULSE 68; RESP 16; TEMP 97.4; O2SAT 95
[2023-08-03 10:25] LABS: INR 1.18 (0.9-1.15); Prothrombin Time 12.3 sec (9.3-11.8)
[2023-08-03 10:37] LABS: Chloride 108 mmol/L (98-107); Potassium 4.1 mmol/L (3.5-5.1); Sodium 137 mmol/L (136-145)
[2023-08-03 10:38] LABS: Anion Gap 4 (5-15); Calcium 9.1 mg/dL (8.5-10.1); Carbon Dioxide 25 mmol/L (20-30)
[2023-08-03 10:43] LABS: BUN/Creatinine Ratio 9.5 (10.0-20.0); Blood Urea Nitrogen 11 mg/dL (9-23); Glucose 128 mg/dL (74-106)
[2023-08-03 10:58] LABS: Partial Thromboplastin Time 74.9 SEC (24.5-34.5)
[2023-08-03 13:00] VITALS: BP 109/61; PULSE 53; RESP 18; TEMP 97.8; O2SAT 95
[2023-08-03 15:39] LABS: INR 1.25 (0.9-1.15); Partial Thromboplastin Time 65.2 SEC (24.5-34.5); Prothrombin Time 12.9 sec (9.3-11.8)
[2023-08-03 17:00] VITALS: BP 103/67; PULSE 65; RESP 18; TEMP 97.5; O2SAT 95
== END 2023-08-03 19:58 | disposition short-term general hospital (02) | DRG 871 ==
LOC: EDBD 03:31 → ER 03:31 → EDSEX 03:31 → TELE 06:14 → TELE-CENTR 09:30
PROVIDERS: ADMIT Nurse Practitioner Family; ATTEND Family Medicine
PROC: 4A023N7 Measurement of Cardiac Sampling and Pressure, Left Heart, Percutaneous Approach (ICD-10-PCS; principal; 2023-07-30)
PROC: B211YZZ Fluoroscopy of Multiple Coronary Arteries using Other Contrast (ICD-10-PCS; 2023-07-30)
DX: A41.9 Sepsis, unspecified organism (principal); I50.33 Acute on chronic diastolic (congestive) heart failure; J18.9 Pneumonia, unspecified organism; J96.20 Acute and chronic respiratory failure, unspecified whether with hypoxia or hypercapnia; I24.9 Acute ischemic heart disease, unspecified; N39.0 Urinary tract infection, site not specified; J44.1 Chronic obstructive pulmonary disease with (acute) exacerbation; J44.0 Chronic obstructive pulmonary disease with (acute) lower respiratory infection; I25.110 Atherosclerotic heart disease of native coronary artery with unstable angina pectoris; Z20.822 Contact with and (suspected) exposure to COVID-19; R26.81 Unsteadiness on feet; E11.65 Type 2 diabetes mellitus with hyperglycemia; E66.01 Morbid (severe) obesity due to excess calories; E78.00 Pure hypercholesterolemia, unspecified; K21.9 Gastro-esophageal reflux disease without esophagitis; I25.2 Old myocardial infarction; Z87.442 Personal history of urinary calculi; Z85.528 Personal history of other malignant neoplasm of kidney; Z90.5 Acquired absence of kidney; Z98.61 Coronary angioplasty status; Z90.49 Acquired absence of other specified parts of digestive tract; Z82.49 Family history of ischemic heart disease and other diseases of the circulatory system; Z68.35 Body mass index [BMI] 35.0-35.9, adult
CPT/HCPCS: 36415; 71045; 80048; 80053; 80061; 81001; 82962; 83036; 83735; 83880; 84443; 84484; 85025; 85610; 85730; 86850; 86900; 86901; 87040; 87086; 87088; 87186; 87426; 87804; 93005; 93306; 93458; 99152; 99291; G0378; J1815; J2250; J3490; Q9967

== ENCOUNTER 2023-11-07 18:28 | Emergency (ER) | payer OTHER ==
[~2023-11-07] VITALS: Ht 172.7 cm; Wt 96.9 kg
[2023-11-07 19:16] LABS: Basophils # (auto) 0 10 ^3/uL (0-0.2); Basophils % (auto) 0.5 % (0.0-2.0); Eosinophils # (auto) 0.4 10 ^3/uL (0-0.8); Eosinophils % (auto) 5.2 % (0.0-7.0); Hematocrit 42.3 % (41.0-53.0); Hemoglobin 14.4 g/dL (13.5-17.5); Lymphocytes % (auto) 23.8 % (10.0-50.0); Mean Corpuscular Hgb Conc. 34.1 g/dL (32.0-36.0); Monocytes # (auto) 0.6 10 ^3/uL (0-1.3); Neutrophils # (auto) 5.4 10 ^3/uL (1.6-8.6); Neutrophils % (auto) 63.5 % (37.0-80.0); Nucleated Red Blood Cells % 0.1 %; White Blood Cell 8.5 10^3/uL (4.4-10.8)
[2023-11-07 19:33] LABS: Alanine Aminotransferase 15 U/L (7-40); Albumin 4.1 g/dL (3.2-4.8); Alkaline Phosphatase 115 U/L (46-116); Anion Gap 13 (5-15); Aspartate Aminotransferase 10 U/L (13-40); BUN/Creatinine Ratio 13.5 (10.0-20.0); Bilirubin, Total 0.4 mg/dL (0.2-1.0); Blood Urea Nitrogen 14 mg/dL (9-23); Calcium 9.3 mg/dL (8.7-10.4); Carbon Dioxide 21 mmol/L (20-30); Chloride 108 mmol/L (98-107); Glucose 176 mg/dL (74-106); Potassium 4.3 mmol/L (3.5-5.1); Sodium 142 mmol/L (136-145); Total Protein 6.9 g/dL (5.7-8.2)
[2023-11-07 20:29] LABS: Base Excess -3.5 mmol/L (-2.0-2.0)
[2023-11-07 20:38] LABS: Lactic Acid w/Reflex 2.9 mmol/L (0.4-2.0)
[2023-11-07] MEDS: methylPREDNISolone SOD SUCC 125 MG/2 ML VL IV ONE (20:55)
[2023-11-07] MEDS: cefTRIAXone 1GM/50ML D5W 50 ML IV ONE (21:17)
[2023-11-07] MEDS: AZITHROMYCIN 500MG/ 250ML 250 ML IV ONE (21:34)
[2023-11-07 21:35] VITALS: BP 134/66; TEMP 98; O2SAT 96
[2023-11-07 21:43] LABS: Urine Bacteria None Seen /hpf (None Seen)
[2023-11-07 21:47] LABS: Urine Blood Negative /uL (Negative); Urine Clarity Clear (Clear); Urine Color Light-Yellow (Yellow); Urine Protein, UAD Negative (Negative); Urine Specific Gravity 1.009 (1.001-1.035); Urine Urobilinogen Normal (Negative); Urine WBC 1 /hpf (0 - 3)
[2023-11-07] MEDS ORDERED: AZITTAB PO (22:05)
[2023-11-07] MEDS ORDERED: ALBU108A14 IN (22:05)
[2023-11-07] MEDS ORDERED: PRED20TA2 PO (22:05)
[2023-11-07] MEDS ORDERED: ALB5IS NEB (22:05)
[2023-11-07] MEDS ORDERED: AUG875T PO (22:05)
[2023-11-07] MEDS ORDERED: IPR002IS NEB (22:05)
[2023-11-07] MEDS: SODIUM CHLORIDE 0.9% 500 ML IV ONE (22:14)
[2023-11-07] MEDS: ACETAMINOPHEN 500 MG TAB PO ONE (22:53)
[2023-11-07 23:28] VITALS: PULSE 65; RESP 20
== END 2023-11-07 23:31 | disposition home or self-care (01) ==
LOC: ER 18:28
DX: R06.02 Shortness of breath (principal); R53.1 Weakness; I50.9 Heart failure, unspecified; I25.2 Old myocardial infarction; I25.10 Atherosclerotic heart disease of native coronary artery without angina pectoris; J44.9 Chronic obstructive pulmonary disease, unspecified; E11.9 Type 2 diabetes mellitus without complications; K21.9 Gastro-esophageal reflux disease without esophagitis; E78.5 Hyperlipidemia, unspecified; Z86.2 Personal history of diseases of the blood and blood-forming organs and certain disorders involving the immune mechanism; Z87.442 Personal history of urinary calculi; Z98.890 Other specified postprocedural states; Z79.899 Other long term (current) drug therapy
CPT/HCPCS: 36415; 36600; 70450; 71045; 80053; 81001; 82805; 82962; 83605; 83880; 84484; 85025; 87040; 93005; 96365; 96366; 96368; 96375; 99285; J0456; J0696

== ENCOUNTER 2024-03-18 17:41 | Emergency (ER) | payer OTHER ==
[~2024-03-18] VITALS: Ht 165.1 cm; Wt 94.1 kg
[~2024-03-18 17:41] MED LIST changes: +ALBU108A14 IN; +AUG875T PO; +AZITTAB PO; +PRED20TA2 PO
[2024-03-18] MEDS: ALBUTEROL SULF 2.5 MG/0.5ML(0.5%) NEB SOLN NEB ONE (18:56)
[2024-03-18] MEDS: IPRATROPIUM BROM 0.5 MG/2.5ML INH SOL NEB ONE (18:57)
[2024-03-18 20:49] VITALS: BP 136/80; TEMP 97.9
[2024-03-18] MEDS: HYDROcodone-ACET 10/325MG TAB PO ONE (21:17)
[2024-03-18 21:27] VITALS: PULSE 65; RESP 14; O2SAT 100
== END 2024-03-18 21:33 | disposition home or self-care (01) ==
LOC: ER 17:41
DX: J44.1 Chronic obstructive pulmonary disease with (acute) exacerbation (principal); I50.9 Heart failure, unspecified; K21.9 Gastro-esophageal reflux disease without esophagitis; E11.9 Type 2 diabetes mellitus without complications; I25.2 Old myocardial infarction; Z90.49 Acquired absence of other specified parts of digestive tract; Z90.89 Acquired absence of other organs; Z87.442 Personal history of urinary calculi
CPT/HCPCS: 71045; 93005; 94640

== ENCOUNTER 2024-06-26 19:41 | Emergency (ER) | payer OTHER ==
[~2024-06-26] VITALS: Ht 172.7 cm; Wt 90.9 kg
--- NOTE | 2024-06-26 21:04 | DVH ---
EXAM: CT LS SPINE WO CONTRAST INDICATION: fall/pain EXAM DATE: 06/26/2024 08:33 PM COMPARISON: None TECHNIQUE: Multiple axial CT images of the lumbar spine were obtained using bone algorithm. Axial and coronal reformatting was done. Bone and soft tissue windows were reviewed. Radiation Dose Information: CT Dose: CTDI volume is 35.61 mGy. Dose-length product is 1227.27 mGy*cm Findings: There are 5 nonrib-bearing lumbar vertebrae. There is no evidence of an acute fracture or spondylolisthesis. The vertebral body heights are well-m aintained. Moderate spondylosis. Severe degenerative disc disease of L4/L5. No spinal canal stenosis. The alignment is within normal limits. The paraspinal soft tissues appear within normal limits. Diver ticulosis. Partially visualized large left renal cyst. Impression: 1. No evidence of an acute fracture. 2. Moderate degenerative changes of the lumbar spine with severe degenerative disc disease of L4/L5.
--- NOTE | 2024-06-26 22:17 | ED.PDOC ---
Back pain HPI HPI Comments Pt with Hx of DDD and chronic back pain reports falling 3 days ago and lower back pain has increased since. Pt denies hitting his head, denies LOC, denies N/V. Pt ambulated into and out of triage independantly. Denies numbness, weakness, saddle anesthesia, loss of bowel or bladder control. Chief Complaint: Back Pain Time Seen by MD: 20:00 Primary Care Provider: UNKNOWN Reviewed Notes: Nurses Notes, Medications, Allergies Allergies: Coded Allergies: NO KNOWN ALLERGIES (Unverified , 11/10/19) Home Meds Active Scripts Albuterol Sulfate (Proair Digihaler) 108 Mcg/Act Aer, 2 PUFF IN Q6HP PRN, #1 AER Prov:UMM PRITCHETT MD 11/07/23 Amoxicillin & Pot Clavulanate (AUGMENTIN TABLET) 875 Mg Tb, 875 MG PO BID for 10 Days, #20 TAB Prov:UMM PRITCHETT MD 11/07/23 Azithromycin (Zithromax Z-Morgan) 250 Mg Tab, 250 MG PO DAILY, #6 TAB 2 tabs (500mg) po on day 1, then 1 tab (250mg) daily x next 4 days Prov:UMM PRITCHETT MD 11/07/23 Prednisone (Prednisone) 20 Mg Tab, 40 MG PO DAILY for 4 Days, #8 MG Prov:UMM PRITCHETT MD 11/07/23 Albuterol Sulfate (Ventolin) 2.5 Mg/0.5 Ml Nb, 5 MG NEB Q4H, #1 BOX Prov:UMM PRITCHETT MD 11/07/23 Ipratropium Cumberland (Ipratropium Cumberland) 0.02 % Elizabeth, 0.5 MG NEB Q2HPRN PRN, #1 BOX Prov:UMM PRITCHETT MD 11/07/23 Hydrocodone-Acetaminophen (Hydrocodone Bitartrate/AC 5-325 mg) 1 Tab Tab, 1 TAB PO Q4HP PRN, #15 TAB Prov:PRISCILLA SAMANIEGO PAC 07/12/23 Metronidazole (Flagyl) 500 Mg Tab, 500 MG PO TID for 7 Days, #21 TAB Prov:ANGEL JOYNER MD 01/17/22 Cephalexin (KEFLEX CAPSULE) 250 Mg Cp, 500 MG PO TID for 7 Days, #21 BOT Prov:ANGEL JOYNER MD 01/17/22 Pantoprazole Sodium Sesquihydr (Protonix) 40 Mg Tab, 40 MG PO BID for 30 Days, #60 TAB Prov:CONNOR JOSHI MD 11/02/21 Ascorbic Acid (VITAMIN C) 500 Mg Cap, 500 MG PO BID, #60 CAP Prov:ROGER VERAS MD 07/30/19 Ferrous Sulfate (Ferrous Sulfate) 325 Mg Tab, 325 MG PO BID, #60 TAB Prov:ROGER VERAS MD 07/30/19 Pantoprazole Sodium Sesquihydr (Protonix) 40 Mg Tab, 40 MG PO DAILY, #30 TAB Prov:ROGER VERAS MD 07/30/19 Misc. Intestinal Rita Regulat (Align) 4 Mg Cap, 4 MG PO DAILY, #14 CAP Prov:ROGER VERAS MD 07/30/19 Levofloxacin (Levaquin) 500 Mg Tab, 500 MG PO DAILY for 7 Days, #7 TAB Prov:ROGER VERAS MD 07/30/19 Metronidazole (Flagyl) 500 Mg Tab, 500 MG PO Q8HR PRN for 10 Days, #30 TAB Prov:ROGER VERAS MD 07/30/19 Guaifenesin (Guaifenesin) 100 Mg/5 Ml Elizabeth, 200 MG PO Q6HP PRN, #20 Prov:ROGER VERAS MD 11/17/18 Atorvastatin Calcium (Lipitor) 20 Mg Tab, 20 MG PO DAILY, #30 Prov:DIPESH GARCIA MD 02/11/16 Nitroglycerin (NTROSTAT SUBLINGUAL) 0.4 Mg Sl, 0.4 MG SL PRN PRN, #25 *MAY REPEAT EVERY 5 MINUTES X 3 TOTAL IF NO RELIEF, INITIATE ANALGESIC THERAPY. NOTIFY PHYSICIAN *Do not crush. Prov:DIPESH GARCIA MD 02/11/16 Reported Medications Zolpidem Tartrate (Ambien) 10 Mg Tab, 10 MG PO HS, TAB 12/06/13 Mode of Arrival: Ambulatory Past Medical History PAST MEDICAL HISTORY: Anemia, CAD, Cancer, CHF, COPD, DM, GERD, High Lipids, Kidney Stones, [place] Surgical History: Appendectomy, Cholecystectomy, PTCA, Tonsillectomy Family History Family History: Reviewed,noncontributory to illness, Family hx of heart marivel Social History Smoker: Non-Smoker Alcohol: Denies ETOH Use Drugs: Denies Drug Use Lives In: Home Constitutional: denies: chills, diaphoresis, fatigue, fever, malaise, sweats, weakness, others EENTM: denies: blurred vision, double vision, ear bleeding, ear discharge, ear drainage, ear pain, ear ringing, eye pain, eye redness, hearing loss, mouth pain, mouth swelling, nasal discharge, nose bleeding, nose congestion, nose pain, photophobia, tearing, throat pain, throat swelling, voice changes, others Respiratory: denies: cough, hemoptysis, orthopnea, SOB at rest, shortness of breath, SOB with excertion, stridor, wheezing, others Cardiovascular: denies: chest pain, dizzy spells, diaphoresis, Dyspnea on exertion, edema, irregular heart beat, left arm pain, lightheadedness, palpitations, PND, syncope, others Gastrointestinal: denies: abdomen distended, abdominal pain, blood streaked bowels, constipated, diarrhea, dysphagia, difficulty swallowing, hematemesis, melena, nausea, poor appetite, poor fluid intake, rectal bleeding, rectal pain, vomiting, others Genitourinary: denies: burning, dysuria, flank pain, frequency, hematuria, incontinence, penile discharge, penile sore, pain, testicle pain, testicle s welling, urgency, others Neurological: denies: dizziness, fainting, headache, left sided numbness, left sided weakness, numbness, paresthesia, pre-existing deficit, right sided numbness, right sided weakness, seizure, speech problems, tingling, tremors, weakness, others Musculoskeletal: reports: back pain; denies: gout, joint pain, joint swelling, muscle pain, muscle stiffness, neck pain, others Integumetry: denies: bruises, change in color, change in hair/nails, dryness, laceration, lesions, lumps, rash, wounds, others Allergic/Immunocompromised: denies: Difficulty Healing, Frequent Infections, Hives, Itching, others Hematologic/Lymphatic: denies: anemia, blood clots, easy bleeding, easy bruising, swollen glands, others Endocrine: denies: excessive hunger, excessive sweating, excessive thirst, excessive urination, flushing, intolerance to cold, intolerance to heat, unexplained weight gain, unexplained weight loss, others Psychiatric: denies: anxiety, bipolar disorder, depression, hopeless, panic disorder, schizophrenia, sleepless, suicidal, others Physical Exam General Appearance: No Apparent Distress, Normal HEENT: Pharynx Normal Neck: Full Range of Motion, Non-Tender Respiratory: Lungs Clear, No Respiratory Distress, Normal Breath Sounds Cardiovascular: No Edema, No JVD, No Murmur, No Gallop, Normal Peripheral Pulses, Regular Rate/Rhythm Breast Exam: Deferred Gastrointestinal: No Organomegaly, Non Tender, No Pulsatile Mass, Normal Bowel Sounds, Soft Genitalia: Deferred Pelvic: Deferred Rectal: Deferred Extremities: Normal capillary refill, Normal inspection, Normal range of motion, Non-tender, No pedal edema Musculoskeletal : Location: Bilateral Extremity Location: Back (L1 through L5 spine without crepitus or step-offs mild tenderness on palpation. Straight negative bilateral. Sensory and motion intact. Positive pedal pulses. Moderate tenderness palpated over L1 through L5 paraspinal muscles bilateral noted spasms.) Apperance: Normal Neurologic: Alert, research program coordinator II-XII nml as Tested, No Motor Deficits, Normal Affect, Normal Mood, No Sensory Deficits Cerebellar Function: Normal Reflexes: Normal Skin: Dry, Normal Color, Warm Lymphatic: No Adenopathy Was a procedure done? Was a procedure done?: No Back Pain Differential Dx Differential Diagnosis: Fracture, Musculoskeletal Pain X-Ray, Labs, Meds, VS Vital Signs Date Time Temp Pulse Resp B/P (MAP) Pulse Ox O2 Delivery O2 Flow Rate FiO2 06/26/24 22:53 77 19 95 Room Air 06/26/24 22:53 97.7 77 19 122/62 (82) 95 97.7 06/26/24 19:46 97.9 94 20 155/75 (101) 95 X-Ray, Labs, Meds, VS Comment CT of lumbar spine shows no acute findings, noted severe degenerative disc disease. Lumbar muscle strain status post fall. Patient given Decadron 10 mg IM, and Christiana 5 mg p.o. reports improvement in pain and function requesting discharge at this time script Medrol Dosepak advised to start continued pain. Muscle relaxer for HS. Has a follow up with his PCP in 2-3 days as necessary consider further imaging such as MRI for continued symptoms. Return precautions given for saddle anesthesia, numbness, weakness, loss of bowel or bladder control or any concerning symptoms patient indicates understanding and agrees with discharge plan of care Time of 1ST Reevaluation: 23:01 Reevaluation 1ST: Improved Patient Education/Counseling: Diagnosis, Treatment, Prognosis, Need For Follow Up Family Education/Counseling: No Family Present Departure 1 Departure Time of Disposition: 23:01 Impression: Primary Impression: Lumbar sprain Qualified Codes: S33.5XXA - Sprain of ligaments of lumbar spine, initial encounter Disposition: HOME / SELF CARE / HOMELESS Condition: Stable e-Prescriptions Methocarbamol (Methocarbamol) 500 Mg Tab 1 TAB PO HS PRN for 5 Days, #5 TAB Prov: EK MÉNDEZ 06/26/24 Methylprednisolone (Medrol Dosepak) 4 Mg Morgan 4 MG PO UD, #21 TAB UAD Prov: KE MÉNDEZ 06/26/24 Discharged With: Significant Other Critical Care Note Critical Care Time?: No Stability Stability form required: KE Jara Jun 26, 2024 22:17
[2024-06-26 22:53] VITALS: BP 122/62; PULSE 77; RESP 19; TEMP 97.7; O2SAT 95
[2024-06-26] MEDS ORDERED: METH4PAK PO (23:00)
[2024-06-26] MEDS ORDERED: METH-1181 PO (23:00)
[2024-06-26] MEDS: DexAMETHasone SOD PHOS 10MG/1ML VIAL INJ IM ONE (23:05)
[2024-06-26] MEDS: HYDROcodone-ACET 5/325MG TAB PO ONE (23:05)
== END 2024-06-26 23:37 | disposition home or self-care (01) ==
LOC: ER 19:41
DX: S33.5XXA Sprain of ligaments of lumbar spine, initial encounter (principal); I50.9 Heart failure, unspecified; J44.9 Chronic obstructive pulmonary disease, unspecified; E11.9 Type 2 diabetes mellitus without complications; K21.9 Gastro-esophageal reflux disease without esophagitis; Z79.52 Long term (current) use of systemic steroids; Z79.899 Other long term (current) drug therapy; Z90.49 Acquired absence of other specified parts of digestive tract; Z90.89 Acquired absence of other organs; W18.09XA Striking against other object with subsequent fall, initial encounter; Y93.89 Activity, other specified; Y92.89 Other specified places as the place of occurrence of the external cause; Y99.8 Other external cause status
CPT/HCPCS: 72131; 96372; 99285; J1100